=== PATIENT | male | born 1935 | race Caucasian/White ===

== ENCOUNTER 2018-04-05 13:29 | Inpatient (IN) | payer MEDICARE, SELFPAY ==
[2018-04-05] VITALS (7 sets, daily range): BP systolic 114–165; BP diastolic 64–75; PULSE 54–77; RESP 16–18; TEMP 36.6–36.9; O2SAT 96–99; BMI 18.3; BMI 16.0; BMI 16.1
--- NOTE | 2018-04-05 14:13 | CT_ITS ---
STUDY: CT BRAIN WITHOUT CONTRAST REASON FOR EXAM: Male, 82 years old. Severe headache for one week with dizziness. RADIATION DOSAGE (If Supplied By Facility): CTDIvol = ( 44.99 ) mGy, DLP = ( 745.49 ) mGycm TECHNIQUE: Transaxial CT imaging of the brain was performed without administration of intravenous contrast material. Coronal and sagittal 2-D MPR Individualized dose optimization techniques were used for this CT. COMPARISON: None. FINDINGS: Evaluated portions of the paranasal sinuses are clear. Mastoid air cells and middle ear cavities clear. Symmetric and grossly normal features of the vestibular and acoustic apparatus of the temporal bones. Extra cranial soft tissues including the orbital contents exhibit no acute process. Craniofacial osseous structures within the field of view appear normal. There is mild symmetric expansion of lateral ventricles and extra-axial spaces consistent with mild age-related cerebral atrophy. There are no significant chronic changes of the white matter. There is no evidence of acute or old infarct. There is no acute intracranial bleed, mass or mass effect. Normal features of the pituitary, brainstem and cerebellum. CT/Brain/Head without Contrast IMPRESSION: No acute intracranial process. Normal sinuses and normal appearance of the vestibular and acoustic apparatus of the temporal bones. Electronically Signed: Carlos Forde MD at 15:03 EST Tel , Service support ,
--- NOTE | 2018-04-05 14:14 | EKG12_ITS ---
Test Reason : Blood Pressure : / mmHG Vent. Rate : 052 BPM Atrial Rate : 052 BPM P-R Int : 152 ms QRS Dur : 082 ms QT Int : 416 ms P-R-T Axes : 072 012 066 degrees QTc Int : 386 ms Sinus bradycardia Confirmed by EDER VOGEL, ROJAS ([id number]), field map editor UGO NIETO ([id number] on 04/08/2018 1:32:18 PM Referred By: ANGELICA Confirmed By:ROJAS GAINES MD
[2018-04-05] MEDS: Morphine 2 MG/ML Syringe IV (14:33)
[2018-04-05] MEDS: Ondansetron 4 MG/2 ML Vial IV (14:33)
[2018-04-05 14:51] LABS: Erythrocyte Sedimentation Rate 11 mm/hr (0-20)
[2018-04-05 14:53] LABS: Absolute Lymphocyte Count 0.97 X10^3/ul (0.83-4.51); Absolute Neutrophil Count 4.3 X10^3/uL (2.0-7.7); Basophil# 0.01 X10^3/uL; Basophil% 0.2 % (0-1); Eosinophil# 0.02 X10^3/uL; Eosinophils% 0.3 % (0-5); Hematocrit 43.2 % (40-54); Hemoglobin 13.7 g/dl (13.0-16.5); Lymphocyte # 0.97 X10^3/ul (4.0); Lymphocyte % 16.9 % (19-41); Mean Corp Hgb Conc 31.7 g/gl (32-36); Mean Corpuscular Hgb 30.7 pg (27.0-32.0); Mean Corpuscular Volume 96.9 fL (80-94); Mean Platelet Vol. 10.6 fl (6.2-12.0); Monocyte# 0.49 X10^3/uL; Monocyte% 8.5 % (0-10); Neutrophil # 4.26 X10^3/uL (2.7-7.7); Neutrophil % 74.1 % (47-70); Platelet Count 201 K/mm3 (150-450); RBC Distribution Width SD 50.1 fl (35.1-43.9); Red Blood Count 4.46 M/mm3 (4.6-6.2); White Blood Count 5.8 K/mm3 (4.4-11.0)
[2018-04-05 14:55] LABS: POSITIVE COUNT NO; POSITIVE DIFFERENTIAL NO; POSITIVE MORPHOLOGY NO
[2018-04-05 14:59] LABS: Anion Gap 9 (5-15); BUN 12 mg/dL (7-18); Calcium,Total 9.3 mg/dL (8.5-10.1); Chloride 102 mmol/L (98-107); Creatinine, Serum 0.92 mg/dL (0.70-1.30); EST Glomerular Filtration Rate 83 mL/min (>60); Est Glom Filt Rate - Afr Amer 101 mL/min (>60); Estimated Creatinine Clearance 43.69 ml/min; Glucose 104 mg/dL (74-106); Potassium 3.9 mmol/L (3.5-5.1); Sodium Level 141 mmol/L (136-145)
[2018-04-05 15:01] LABS: Prothrombin Time (Protime)PT. 12.9 SECONDS (11.7-14.9)
--- NOTE | 2018-04-05 15:28 | ED.VISSUMM ---
- ER Visit Summary Date of Service: 04/05/18 Chief Complaint: [headache] History of Present Illness: The patient is a 82 M [that presents with 5-6 days of left-sided headache with intermittent left blurry vision. He denies any fall or head trauma. He denies any weakness or paresthesias. No speech difficulty or other neurological complaints. He does not get headaches regularly. He overall appears well and nontoxic. No fever, neck pain, or rash. He has no other complaints.] Physical Examination: [General: The patient appears well and in no apparent distress. Patient is resting comfortably on cart. Skin: Warm, dry, no pallor noted. No rash. Head: Normocephalic, atraumatic Neck: Supple, nontender. Eye: PERRLA, EOMI, normal conjunctiva ENT: Moist mucus membranes, pharynx within normal limits. Mild temporal artery tenderness, no jaw claudication Cardiovascular: Regular Rate and Rhythm, no gallops or rubs Respiratory: Patient is in no distress, no accessory muscle use, lungs are clear to auscultation, no wheezing, rales or rhonchi Musculoskeletal: normal ROM, no deformity, no tenderness, no swelling. 2+ radial and DP pulses symmetric. GI: No tenderness to palpation, no masses appreciated. No rebound, guarding, or rigidity noted. Neurological: A&O, normal strength and sensation. GCS 15. NIH = 0. Psychiatric: Cooperative] Test Results: [] Emergency Department Course and Treatment: [CT imaging of the head shows no acute process. He was given IV fluids, morphine, and Zofran without significant relief of symptoms. He was given a dose of IV Toradol and placed on nasal cannula oxygen. His neurological exam is otherwise within normal limits. I feel patient requires admission for further neurological evaluation and treatment of his headache. He describes gradual onset of the headache and visual change symptoms that started prior to the headache at one point. I do not feel his presentation is consistent with subarachnoid hemorrhage. Patient discussed with hospitalist, Dr. Arroyo, who is agreeable with admission. Patient admitted in stable condition. ] Treatment Plan: [see above] Disposition: [admission] Impression: [Acute Cephalgia, Visual Changes] This note was generated with [employer] software. It may contain incorrect words, spelling, and punctuation that were not noted in review of the chart prior to signing ED Disposition - Plan for ED Patient: Chief Complaint: Headache Referrals: Care Physician,No Primary [Primary Care Provider] -
--- NOTE | 2018-04-05 15:31 | ED.DCSUM_ITS ---
- ER Visit Summary Date of Service: 04/05/18 Chief Complaint: [headache] History of Present Illness: The patient is a 82 M [that presents with 5-6 days of left-sided headache with intermittent left blurry vision. He denies any fall or head trauma. He denies any weakness or paresthesias. No speech difficulty or other neurological complaints. He does not get headaches regularly. He overall appears well and nontoxic. No fever, neck pain, or rash. He has no other complaints.] Physical Examination: [General: The patient appears well and in no apparent distress. Patient is resting comfortably on cart. Skin: Warm, dry, no pallor noted. No rash. Head: Normocephalic, atraumatic Neck: Supple, nontender. Eye: PERRLA, EOMI, normal conjunctiva ENT: Moist mucus membranes, pharynx within normal limits. Mild temporal artery tenderness, no jaw claudication Cardiovascular: Regular Rate and Rhythm, no gallops or rubs Respiratory: Patient is in no distress, no accessory muscle use, lungs are clear to auscultation, no wheezing, rales or rhonchi Musculoskeletal: normal ROM, no deformity, no tenderness, no swelling. 2+ radial and DP pulses symmetric. GI: No tenderness to palpation, no masses appreciated. No rebound, guarding, or rigidity noted. Neurological: A&O, normal strength and sensation. GCS 15. NIH = 0. Psychiatric: Cooperative] Test Results: [] Emergency Department Course and Treatment: [CT imaging of the head shows no acute process. He was given IV fluids, morphine, and Zofran without significant relief of symptoms. He was given a dose of IV Toradol and placed on nasal cannula oxygen. His neurological exam is otherwise within normal limits. I feel patient requires admission for further neurological evaluation and treatment of his headache. He describes gradual onset of the headache and visual change symptoms that started prior to the headache at one point. I do not feel his presentation is consistent with subarachnoid hemorrhage. Patient discussed with hospitalist, Dr. Arroyo, who is agreeable with admission. Patient admitted in stable condition. ] Treatment Plan: [see above] Disposition: [admission] Impression: [Acute Cephalgia, Visual Changes] This note was generated with [employer] dictation software. It may contain incorrect words, spelling, and punctuation that were not noted in review of the chart prio r to signing ED Disposition - Plan for ED Patient: Chief Complaint: Headache Referrals: Care Physician,No Primary [Primary Care Provider] -
--- NOTE | 2018-04-05 15:35 | HP.PCM_ITS ---
Problem List (1) Migraine Status: Suspected Qualifiers: Migraine type: unspecified (2) CVA (cerebral vascular accident) Status: Acute Qualifiers: CVA mechanism: unspecified Qualified Code(s): I63.9 - Cerebral infarction, unspecified (3) Anemia Status: Chronic Qualifiers: Anemia type: unspecified type Qualified Code(s): D64.9 - Anemia, unspecified (4) BPH (benign prostatic hyperplasia) Status: Chronic Qualifiers: Lower urinary tract symptom presence: unspecified whether lower urinary tract symptoms present Qualified Code(s): N40.0 - Benign prostatic hyperplasia without lower urinary tract symptoms (5) GERD (gastroesophageal reflux disease) Status: Chronic Qualifiers: Esophagitis presence: esophagitis presence not specified Qualified Code(s): K21.9 - Gastro-esophageal reflux disease without esophagitis (6) Malnutrition Status: Chronic Qualifiers: Malnutrition type: protein-calorie malnutrition Protein-calorie malnutrition severity: moderate Qualified Code(s): E44.0 - Moderate protein- calorie malnutrition History of Present Illness Date of Admission: 04/05/18 Chief Complaint: L sided headache, vision changes The patient is a 82 y/o M w/ PMHx: GERD, BPH, ? Anemia who presents to the [facility] ED on 04/05/18 with history of intermittent, dull aching with intermittent sharp stabbing sensation to the left head with light and sound sensitivity in addition to new onset left eye blurry vision which has improved transiently but then again worsens not correlated to headache he notes but unsure with no migraine history. He rates the discomfort at its height, currently, 10/10. In the ED work-up included T 97.8, heart rate 77, BP 148/75, respiratory rate 16, 99% on room air, CBC with W BC 5.8, hemoglobin 13.7, platelet 201 with very minimal shift, ESR 11, normal coags, unremarkable BMP, CT head with no acute finding with normal sinus is a normal appearance of vestibular and acoustic apparatus of the temporal bones. In the ED patient leak hunter normal saline, Zofran, morphine, Toradol still noting ongoing discomfort. Past Medical History Past Medical History (Chronic Problems): Chronic Problems Anemia (Chronic) BPH (benign prostatic hyperplasia) (Chronic) GERD (gastroesophageal reflux disease) (Chronic) Malnutrition (Chronic) Allergies No Known Allergies Allergy (Verified 04/05/18 13:33) Home Medications: Ambulatory Orders Medication Instructions Recorded Multivit-Min/FA/Lycopen/Lutein 1 tab PO DAILY 04/05/18 [Centrum Silver Men Tablet] Surgical History: - - Hydrocele repair, prostate surgery. Psychiatric History: No pertinent psych hx Lives: Alone Smoking Status: Never smoker Tobacco Use: Non-smoker Alcohol: None Drugs: None - *Family History Maternal History Items: - - Patient denies any marked maternal or paternal family history include diabetes, heart disease, hypertension but states he is not sure. Paternal History Items: - - Patient denies any marked maternal or paternal family history include diabetes, heart disease, hypertension but states he is not sure. Review of Systems Constitutional: Reports: Malaise, Weakness, Fatigue. Denies: Chills, Fever, Weight Change HEENT: Reports: Head Aches, - - Photophobia and phonophobia.. Denies: Sinus Congestion, Sinus Drainage Cardiovascular: Denies: Chest Pain, Palpitations Respiratory: Denies: Cough, Shortness of breath at rest, Sputum production Gastrointestinal: Denies: Abdominal Pain, Nausea, Vomiting Genitourinary: Denies: Dysuria Musculoskeletal: Reports: Back Pain. Denies: Joint Pain, Joint Tenderness Skin: Denies: Rash, Wounds Neurological: Reports: Blurred vision, Headaches. Denies: Focal weakness, Numbness, Tingling Psychiatric: Denies: Anxiety, Depression, Homicidal Ideations, Suicidal Ideations Hematologic/ Lymphatic: Reports: Anemia. Denies: Easy Bruising, Easy Bleeding VTE Information - Inpt Only VTE Present on Admission: No VTE Mechan Device Prophylaxis: SCD's VTE Pharm Prophylaxis ordered?: Yes Patient Problems: Active and Suspected Problems Migraine (Suspected) CVA (cerebral vascular accident) (Acute) Subjective: Seated upright in the ED bed, notes ongoing headache and as well as some mild vision changes with photophobia and phonophobia present. Objective: Physical Examination: General: awake, alert, oriented x 3 and cooperative, seated upright in the ED bed, lights off upon entering, notes ongoing headache. Skin: normal color, turgor, no icterus, cyanosis. HEENT: AT/NC, EOMI, PERRLA, mildly dry MM, no carotid bruits or JVD noted. Lungs: CTA bilaterally, moderate effort, mild decrease BL bases, no rales, ronchi or wheezing. Heart: Regular rate and rhythm; no gallop, rub audible. Abdomen: soft, cachectic appearing, NTTP, ND, normal BS, no HSM. Extremities: no cyanosis, clubbing, or edema. Neurological: patient awake, alert, oriented x 3; cognitive function intact; pupils equally reactive to light and accomodation; peripheral vision intact during examination but notes vision is still blurry; cranial nerves II-XII grossly normal, moving all 4 extremities, no focal deficits, strength preserved. Psychiatric: affect appears normal, no acute evidence of depressive or anxiety feelings. - Physical Exam Vital Signs Temp Pulse Resp BP Pulse Ox 97.8 F 77 16 148/75 H 99 04/05/18 13:30 04/05/18 13:30 04/05/18 13:30 04/05/18 13:30 04/05/18 13:30 Oxygen Delivery Method Room Air Weight: 110 lb Body Mass Index (BMI) 18.3 Laboratory Tests Past 24 Hrs 04/05/18 04/05/18 04/05/18 14:30 14:30 14:30 WBC 5.8 RBC 4.46 L Hgb 13.7 Hct 43.2 MCV 96.9 H MCH 30.7 MCHC 31.7 L RDW 14.0 RDW Differential 50.1 H Plt Count 201 MPV 10.6 Immature Gran % (Auto) 0.000 Neut % (Auto) 74.1 H Lymph % (Auto) 16.9 L Coleman % (Auto) 8.5 Eos % (Auto) 0.3 Baso % (Auto) 0.2 Absolute Neuts (auto) 4.3 Absolute Lymphs (auto) 0.97 Total Counted Not Reportable ESR 11 PT 12.9 INR 1.0 Sodium 141 Potassium 3.9 Chloride 102 Carbon Dioxide 30.0 Anion Gap 9 BUN 12 Creatinine 0.92 Estim Creat Clear Calc 43.69 Est GFR (MDRD) Af Amer 101 Est GFR (MDRD) Non-Af 83 BUN/Creatinine Ratio 13.0 Glucose 104 Calcium 9.3 Assessment/Plan All Active Problems CVA (cerebral vascular accident) (Acute) The patient is a 82 y/o M w/ PMHx: GERD, BPH, ? Anemia who presents to the [facility] ED on 04/05/18 with history of intermittent, dull aching with intermittent sharp stabbing sensation to the left head with light and sound sensitivity in addition to new onset left eye blurry vision which has improved transiently but then again worsens not correlated to headache he notes but unsure with no migraine history. (1) Atypical Headache, L sided Vision Changes concerning for possible New Onset Migraine versus TIA/CVA: ED work-up included T 97.8, heart rate 77, BP 148/75, respiratory rate 16, 99% on room air, CBC with W BC 5.8, hemoglobin 13.7, platelet 201 with very minimal shift, ESR 11, normal coags, unremarkable BMP, CT head with no acute finding with normal sinus is a normal appearance of vestibular and acoustic apparatus of the temporal bones. In the ED patient leak hunter normal saline, Zofran, morphine, Toradol still noting ongoing discomfort. Will admit to PCU, will obtain MRI Brain, MRA Head and Neck, ECHO, PT/OT/Speech/Nutrition evaluation per protocol. Will consult Neurology for evaluation. Will allow permissive HTN as noted possible pain, maintain on asa, AM FLP w/ addition statin, fall precautions. If MRI negative then likely migraine although no prior history w/ advanced age, would then initiate acute migraine regimen with IV VPA 500 mg Q6 hours, IV Decadron 4 mg Q6 hours, IV Toradol 15 mg Q8 hours and consideration Neurontin low dose with meals. (2) Elevated blood pressure without hypertensive diagnosis:Possibly related to pain with acute presentation however we will continue to closely monitor with continued evaluation with #1 as noted. (3) History of Anemia, Unclear type: Noted on his medical history sheet, suspect secondary to likely malnutrition. (4) Moderate protein calorie malnutrition: Evidence for habitus, muscle and fat loss, nutrition consulted. (5) BPH: Notes frequent urination small amounts only, add flomax. (6) GERD: PPI. (7) DVT Prophylaxis: SCDs, lovenox. (8) CODE status: Discussed CODE status at length including difference between FULL code, DNR-CCA and DNR-CC status. Following discussions about the differences in these status, requested continuation of current living will/HCPOA status noted to be DNR-CCA, no intubation status. Son present for discussion. Advanced Care Planning Face to Face Time: 16 minutes. Code Visit OBSV E&M: 35910 Initial observation care L3 Procedures: 32739 Advncd Care Plan 30 Min
[2018-04-05] MEDS: Ketorolac 15 MG/ML Vial IV (15:47)
--- NOTE | 2018-04-05 17:02 | MRI_ITS ---
STUDY: MRA NECK WITHOUT CONTRAST REASON FOR EXAM: Male, 82 years old. CVA TECHNIQUE: Source images were obtained, MIPs were performed. The study was performed unenhanced. COMPARISON: None. FINDINGS: RIGHT CAROTID ARTERIES: Normal right common carotid artery (CCA). Normal right common carotid bulb. Normal origin of the right internal carotid (ICA) artery without a hemodynamically significant stenosis. Normal visualized cervical portion of the right internal carotid artery. Normal origin of the right external carotid artery (ECA). LEFT CAROTID ARTERIES: Normal left common carotid artery (CCA). Normal left common carotid bulb. Normal origin of the left internal carotid (ICA) artery without a hemodynamically significant stenosis. Normal visualized cervical portion of the left internal carotid artery. Normal origin of the left external carotid artery (ECA). VERTEBRAL ARTERIES: Normal antegrade flow within the bilateral vertebral artery without a hemodynamically significant stenosis. MRI/MRA Neck without Contrast IMPRESSION: Normal bilateral cervical carotid and vertebral arteries. Electronically Signed: Jann Vallecillo MD at 19:13 EST , Service support ,
--- NOTE | 2018-04-05 17:02 | MRI_ITS ---
STUDY: MRI BRAIN WITHOUT CONTRAST REASON FOR EXAM: Male, 82 years old. CVA TECHNIQUE: Standardized multiplanar fat and water weighted pulse sequences were obtained. COMPARISON: CT of the brain on April 05, 2018 FINDINGS: Normal size of the ventricles and extra-axial spaces for the patient's age. Normal white matter tracts of the supratentorial brain. Normal bilateral basal ganglia. Normal thalami. There is no extra-axial fluid accumulation. Normal flow voids within the major intracranial circulation suggesting patency by spin echo criteria. Partial empty sella deformity of uncertain significance. Normal infundibular stalk, optic chiasm and hypothalamus. Normal tectal plate and pineal gland. Normal midbrain, errol and medulla. Normal cerebellum. Normal basal cisterns. Normal bilateral temporal bones. Normal bilateral internal auditory canals. Postsurgical changes of the orbits.. Normal visualized paranasal sinuses. Normal calvarium and skull base. Normal visualized soft tissue structures. Normal visualized upper cervical spine. MRI/Brain without Contrast IMPRESSION: Mild partial empty sella deformity of uncertain clinical significance. Otherwise normal MRI of the brain for stated age Incidental finding of focal low signal changes within the floor of the sella turcica on T1 of indeterminate etiology or clinical significance. Limited repeat study with contrast would be helpful for further evaluation especially if patient has clinical history of neoplasm. Electronically Signed: Jann Vallecillo MD at 19:48 EST , Service support ,
--- NOTE | 2018-04-05 17:02 | MRI_ITS ---
STUDY: MRA OF THE HEAD WITHOUT CONTRAST REASON FOR EXAM: Male, 82 years old. CVA TECHNIQUE: 3-D [id number] (TOF) imaging was performed with MIPs. The study was performed unenhanced. COMPARISON: MRI of the brain on April 05, 2018 FINDINGS: Normal bilateral petrous carotid arteries. Normal right cavernous carotid artery with a normal supraclinoid bifurcation. Normal left cavernous carotid artery with a normal supraclinoid bifurcation. Diffusely narrowed right A1 segments of the anterior cerebral artery. Normal left A1 segments of the anterior cerebral artery. Normal intact anterior communicating artery (ACOM). Normal bilateral A2 segments of the anterior cerebral arteries. Normal right M1 and M2 segments of the middle cerebral arteries, with a normal M1 bifurcation. Normal left M1 and M2 segments of the middle cerebral arteries, with a normal M1 bifurcation. Posterior communicating arteries are not visualized consistent with normal variant Normal bilateral vertebral arteries. Normal basilar artery with a normal basilar bifurcation. The visualized bilateral superior cerebellar (SCA) arteries are normal. Normal bilateral P1, P2 and visualized P3 segments of the posterior cerebral arteries. There is no demonstrated aneurysm of the [place]. There is no major vessel occlusion or hemodynamically significant stenosis. There is no demonstrated abnormality of the visualized brain. MRI/MRA Head ONLY without Contrast IMPRESSION: Diffusely narrowed A1 segment of the right anterior cerebral artery. This may be normal developmental variant. No other significant atherosclerotic disease Electronically Signed: Jann Vallecillo MD at 19:12 EST , Service support ,
[2018-04-05 17:43] LABS: Magnesium 2.2 mg/dL (1.6-2.6); Phosphorus 3.4 mg/dL (2.5-4.9); Thyroid Stim Hormone (TSH) 6.35 uIU/mL (0.358-3.74)
[2018-04-05] MEDS: 0.9% Normal Saline 1,000 ML 100 ML IV (18:34)
[2018-04-05] MEDS: Famotidine 20 MG Tablet PO (21:34)
[2018-04-05] MEDS: Atorvastatin Calcium 20 MG Tablet PO (21:34)
[2018-04-05] MEDS: HYDROcodone Bitartrate/Apap 5/325 Tablet PO (23:04)
[2018-04-06] VITALS (12 sets, daily range): BP systolic 119–149; BP diastolic 58–65; PULSE 46–62; RESP 16–18; TEMP 36.6–36.9; O2SAT 97–98; BMI 16.0
[2018-04-06] MEDS: Acetaminophen 325 MG Tablet 650 MG PO ×3 (03:31→20:21)
[2018-04-06] MEDS: 0.9% Normal Saline 1,000 ML 100 ML IV ×2 (04:32→14:54)
[2018-04-06 06:42] LABS: Cholesterol 210 mg/dL (200); High Density Lipoprotein 56 mg/dL; Triglycerides 74 mg/dL; Very Low Density Lipoprotein 15 mg/dL (5-40)
[2018-04-06] MEDS: Multivitamins,Ther W-Minerals Tablet 1 TABLET PO (09:39)
[2018-04-06] MEDS: Aspirin 81 MG TAB.CHEW PO (09:40)
[2018-04-06] MEDS: Enoxaparin 30 MG/0.3 ML Syringe SC (09:40)
[2018-04-06] MEDS: Famotidine 20 MG Tablet PO ×2 (09:40→22:25)
--- NOTE | 2018-04-06 13:12 | CON.PCM_ITS ---
Reason for Consult Date of Consultation: 04/06/18 History of Present Illness: The patient is a 82 year old M presented with symptoms as below, reports associated with a sense of temperature elevation at home, but hasnt measured temp at home. tried sinus med at home to no avail. reports symptoms started one week ago. reports currently 6/10, upto 20/10. denies trigger. describes a v1-v2 dist. no exac or remitting factors Per admit note: The patient is a 82 y/o M w/ PMHx: GERD, BPH, ? Anemia who presents to the [facility] ED on 04/05/18 with history of intermittent, dull aching with intermittent sharp stabbing sensation to the left head with light and sound sensitivity in addition to new onset left eye blurry vision which has improved transiently but then again worsens not correlated to headache he notes but unsure with no migraine history. He rates the discomfort at its height, currently, 10/10. In the ED work-up included T 97.8, heart rate 77, BP 148/75, respiratory rate 16, 99% on room air, CBC with W BC 5.8, hemoglobin 13.7, platelet 201 with very minimal shift, ESR 11, normal coags, unremarkable BMP, CT head with no acute finding with normal sinus is a normal appearance of vestibular and acoustic apparatus of the temporal bones. In the ED patient china painter normal saline, Zofran, morphine, Toradol still noting ongoing discomfort. Past Medical History Past Medical History (Chronic Problems): Chronic Problems Anemia (Chronic) BPH (benign prostatic hyperplasia) (Chronic) GERD (gastroesophageal reflux disease) (Chronic) Malnutrition (Chronic) Allergies No Known Allergies Allergy (Verified 04/05/18 13:33) Home Medications: Ambulatory Orders Medication Instructions Recorded Multivit-Min/FA/Lycopen/Lutein 1 tab PO DAILY 04/05/18 [Centrum Silver Men Tablet] Surgical History: - - Hydrocele repair, prostate surgery. Psychiatric History: No pertinent psych hx Lives: Alone Smoking Status: Never smoker Tobacco Use: Non-smoker Alcohol: None Drugs: None - *Family History Maternal History Items: - - Patient denies any marked maternal or paternal family history include diabetes, heart disease, hypertension but states he is not sure. Paternal History Items: - - Patient denies any marked maternal or paternal family history include diabetes, heart disease, hypertension but states he is not sure. Review of Systems Constitutional: Denies: Chills, Fever, Weight Change HEENT: Denies: Head Aches, Sinus Congestion, Sinus Drainage Cardiovascular: Denies: Chest Pain, Palpitations Respiratory: Denies: Cough, Shortness of breath at rest, Sputum production Gastrointestinal: Denies: Abdominal Pain, Nausea, Vomiting Genitourinary: Denies: Dysuria Musculoskeletal: Denies: Joint Pain, Joint Tenderness Skin: Denies: Rash, Wounds Neurological: Denies: Numbness, Tingling, Focal weakness Psychiatric: Denies: Anxiety, Depression, Homicidal Ideations, Suicidal Ideations Hematologic/ Lymphatic: Denies: Easy Bruising, Easy Bleeding Patient Problems: Active and Suspected Problems Migraine (Suspected) CVA (cerebral vascular accident) (Acute) - Physical Exam General: Alert, Oriented x3, Cooperative HEENT: Atraumatic, PERRLA, EOMI, Normocephalic Neck: Supple, No JVD, Negative Carotid Bruits Lungs: Clear to auscultation, Normal air movement Cardiovascular: Regular rate, No murmurs Abdomen: Bowel Sounds Present, Soft, Non Tender Extremities: No edema, Capillary Refill Less than 3 Seconds Skin: No rashes, No breakdown Musculoskeletal: No Tenderness to Palpation of Joints or Extremities Neurological: Cranial nerves II-XII grossly intact Psych/Mental Status: Normal Affect, Appropriate Vital Signs Temp Pulse Resp BP Pulse Ox 36.8 C 53 L 16 132/64 H 97 04/06/18 09:15 04/06/18 09:15 04/06/18 09:15 04/06/18 09:15 04/06/18 09:15 Oxygen Delivery Method Room Air Weight: 43.8 kg Body Mass Index (BMI) 16.0 Intake and Output for Last 24 Hours 04/04/18 04/05/18 04/06/18 23:59 23:59 23:59 Intake Total 899 / 899 1024 / 1024 Balance 899 / 899 1024 / 1024 Laboratory Tests Past 24 Hrs 04/05/18 04/05/18 04/05/18 14:30 14:30 14:30 WBC 5.8 RBC 4.46 L Hgb 13.7 Hct 43.2 MCV 96.9 H MCH 30.7 MCHC 31.7 L RDW 14.0 RDW Differential 50.1 H Plt Count 201 MPV 10.6 Immature Gran % (Auto) 0.000 Neut % (Auto) 74.1 H Lymph % (Auto) 16.9 L [place] % (Auto) 8.5 Eos % (Auto) 0.3 Baso % (Auto) 0.2 Absolute Neuts (auto) 4.3 Absolute Lymphs (auto) 0.97 Total Counted Not Reportable ESR 11 PT 12.9 INR 1.0 Sodium 141 Potassium 3.9 Chloride 102 Carbon Dioxide 30.0 Anion Gap 9 BUN 12 Creatinine 0.92 Estim Creat Clear Calc 43.69 Est GFR (MDRD) Af Amer 101 Est GFR (MDRD) Non-Af 83 BUN/Creatinine Ratio 13.0 Glucose 104 Calcium 9.3 Phosphorus Magnesium Triglycerides Cholesterol LDL Cholesterol VLDL Cholesterol HDL Cholesterol TSH 04/05/18 04/06/18 14:30 05:26 WBC RBC Hgb Hct MCV MCH MCHC RDW RDW Differential Plt Count MPV Immature Gran % (Auto) Neut % (Auto) Lymph % (Auto) [place] % (Auto) Eos % (Auto) Baso % (Auto) Absolute Neuts (auto) Absolute Lymphs (auto) Total Counted ESR PT INR Sodium Potassium Chloride Carbon Dioxide Anion Gap BUN Creatinine Estim Creat Clear Calc Est GFR (MDRD) Af Amer Est GFR (MDRD) Non-Af BUN/Creatinine Ratio Glucose Calcium Phosphorus 3.4 Magnesium 2.2 Triglycerides 74 Cholesterol 210 H LDL Cholesterol 139 H VLDL Cholesterol 15 HDL Cholesterol 56 TSH 6.35 H MRI reviewed, no acute Assessment/Plan All Active Problems CVA (cerebral vascular accident) (Acute) [place] tegretol, pain control
[2018-04-06] MEDS: carBAMazepine 200 MG Tablet PO (14:52)
--- NOTE | 2018-04-06 18:00 | PCM.PROGNOTE ---
Patient Problems: Active and Suspected Problems Migraine (Suspected) CVA (cerebral vascular accident) (Acute) Subjective: Patient is an 82-year-old male with a past medical history of GERD and BPH who presented to the emergency room department at [facility] on 04/05/2018 complaining of intermittent dull and sharp stabbing sensation in his left head with light and sound sensitivity in addition to new onset blurry vision in the left eye. He did not give a history of previous migraines. Vital signs in the emergency room were temp 97.8, heart rate 77, blood pressure 148/75, respiratory rate 16 and he was 99% saturated on room air. White blood cell count was 5.8 and the hemoglobin and platelets were within normal limits. Sed rate was 11. BMP was unremarkable. A CT scan of the head showed no acute disturbances. He was admitted to the hospital with a dx of atypical YBARRA and neuro w/u was initiated. Dr. Blair was consulted. All events of the past 24 hours of been reviewed. Afebrile since admission with stable vital signs. MRI of the brain showed mild partial empty sella deformity but was otherwise normal for age. MRA of the brain showed diffusely narrowed A1 segment of the right anterior cerebral artery which could be a normal variant. MRA of the neck showed normal bilateral cervical carotid and vertebral arteries. He was started on Tegretol for pain relief by Dr. Blair. Objective: PHYSICAL EXAM: GENERAL: alert, oriented X 3, Cooperative, NAD ORAL: moist mucosa, no mucosal lesions NECK: No JVD, supple, trachea midline LUNGS: CTA, symmetric chest expansion no rales, wheezes or rhonchi HEART: RRR, Normal S1 and S2, no rub, no gallop ABDOMEN: soft, NT, ND, BS present, no guarding with palpation EXTREMITIES: no edema, no cyanosis, no calf tenderness SKIN: No rashes, no breakdown NEUROLOGIC: no focal neurologic deficits PSYCH: appropriate, normal affect, pleasant - Physical Exam Vital Signs Temp Pulse Resp BP Pulse Ox 97.8 F 62 18 149/61 H 97 04/06/18 17:33 04/06/18 17:33 04/06/18 17:33 04/06/18 17:33 04/06/18 17:33 Oxygen Delivery Method Room Air Weight: 96 lb 8.999 oz Body Mass Index (BMI) 16.0 Intake and Output for Last 24 Hours 04/04/18 04/05/18 04/06/18 23:59 23:59 23:59 Intake Total 899 / 899 2423 / 2423 Balance 899 / 899 2423 / 2423 Laboratory Tests Past 24 Hrs 04/06/18 05:26 Triglycerides 74 Cholesterol 210 H LDL Cholesterol 139 H VLDL Cholesterol 15 HDL Cholesterol 56 Medical Necessity - Tobacco Use Smoking Status: Never smoker Tobacco Use: Non-smoker Assessment/Plan All Active Problems CVA (cerebral vascular accident) (Acute) Impressions 1. Atypical YBARRA - no acute neurologic events. Possible Migraine. Started on Tegretol by Dr. Blair 2. Elevated blood pressure with no definitive diagnosis of hypertension-hypertension has improved as his headache has improved. 3. Moderate malnutrition due to suboptimal energy intake 4. BPH 5. GERD 6. elevated TSH re-evaluate in the AM since he has been started on Tegretol Possible DC tomorrow May need follow up with the home designer as an OP for malnutrition Check a T4 in the AM Code Visit Inpatient E&M: 01287 Subs Hosp L2
--- NOTE | 2018-04-06 18:08 | PN_ITS ---
Patient Problems: Active and Suspected Problems Migraine (Suspected) CVA (cerebral vascular accident) (Acute) Subjective: Patient is an 82-year-old male with a past medical history of GERD and BPH who presented to the emergency room department at [facility] on 04/05/2018 complaining of intermittent dull and sharp stabbing sensation in his left head with light and sound sensitivity in addition to new onset blurry vision in the left eye. He did not give a history of previous migraines. Vital signs in the emergency room were temp 97.8, heart rate 77, blood pressure 148/75, respiratory rate 16 and he was 99% saturated on room air. White blood cell count was 5.8 and the hemoglobin and platelets were within normal limits. Sed rate was 11. BMP was unremarkable. A CT scan of the head showed no acute disturbances. He was admitted to the hospital with a dx of atypical YBARRA and neuro w/u was initiated. Dr. Blair was consulted. All events of the past 24 hours of been reviewed. Afebrile since admission with stable vital signs. MRI of the brain showed mild partial empty sella deformity but was otherwise normal for age. MRA of the brain showed diffusely narrowed A1 segment of the right anterior cerebral artery which could be a normal variant. MRA of the neck showed normal bilateral cervical carotid and vertebral arteries. He was started on Tegretol for pain relief by Dr. Blair. Objective: PHYSICAL EXAM: GENERAL: alert, oriented X 3, Cooperative, NAD ORAL: moist mucosa, no mucosal lesions NECK: No JVD, supple, trachea midline LUNGS: CTA, symmetric chest expansion no rales, wheezes or rhonchi HEART: RRR, Normal S1 and S2, no rub, no gallop ABDOMEN: soft, NT, ND, BS present, no guarding with palpation EXTREMITIES: no edema, no cyanosis, no calf tenderness SKIN: No rashes, no breakdown NEUROLOGIC: no focal neurologic deficits PSYCH: appropriate, normal affect, pleasant - Physical Exam Vital Signs Temp Pulse Resp BP Pulse Ox 97.8 F 62 18 149/61 H 97 04/06/18 17:33 04/06/18 17:33 04/06/18 17:33 04/06/18 17:33 04/06/18 17:33 Oxygen Delivery Method Room Air Weight: 96 lb 8.999 oz Body Mass Index (BMI) 16.0 Intake and Output for Last 24 Hours 04/04/18 04/05/18 04/06/18 23:59 23:59 23:59 Intake Total 899 / 899 2423 / 2423 Balance 899 / 899 2423 / 2423 Laboratory Tests Past 24 Hrs 04/06/18 05:26 Triglycerides 74 Cholesterol 210 H LDL Cholesterol 139 H VLDL Cholesterol 15 HDL Cholesterol 56 Medical Necessity - Tobacco Use Smoking Status: Never smoker Tobacco Use: Non-smoker Assessment/Plan All Active Problems CVA (cerebral vascular accident) (Acute) Impressions 1. Atypical YBARRA - no acute neurologic events. Possible Migraine. Started on Tegretol by Dr. Blair 2. Elevated blood pressure with no definitive diagnosis of hypertension- hypertension has improved as his headache has improved. 3. Moderate malnutrition due to suboptimal energy intake 4. BPH 5. GERD 6. elevated TSH re-evaluate in the AM since he has been started on Tegretol Possible DC tomorrow May need follow up with the cutting table operator first as an OP for malnutrition Check a T4 in the AM Code Visit Inpatient E&M: [id number] Subs Hosp L2
[2018-04-06] MEDS: Atorvastatin Calcium 20 MG Tablet PO (22:25)
[2018-04-07] VITALS (11 sets, daily range): BP systolic 124–145; BP diastolic 61–75; PULSE 51–69; RESP 16–18; TEMP 36.6–37.1; O2SAT 96–98; BMI 16.0
[2018-04-07] MEDS: 0.9% Normal Saline 1,000 ML 100 ML IV (00:19)
[2018-04-07] MEDS: Acetaminophen 325 MG Tablet 650 MG PO ×2 (03:51→08:05)
[2018-04-07 07:47] LABS: T4 Free Direct 0.81 ng/dL (0.76-1.46)
--- NOTE | 2018-04-07 08:08 | PCM.PROGNOTE ---
Patient Problems: Active and Suspected Problems Migraine (Suspected) CVA (cerebral vascular accident) (Acute) Subjective: All events of the past 24 hours of been reviewed. Afebrile since admission Vital signs are stable Telemetry shows sinus bradycardia with no significant ectopy Laboratory: TSH was elevated at 6.35 but the free T4 is within normal limits at 0.81. Patient reports to me that the Tegretol has not helped his headache at all. He has had this headache for a few weeks now and it has been unrelenting. He also complains of visual changes in his left eye. He denies any muscle pain and also denies any jaw claudication. He has no history of migraine cephalgia. He is tender in the left temporal area with palpation. Objective: PHYSICAL EXAM: GENERAL: alert, oriented X 3, Cooperative, looks to be in pain today ORAL: moist mucosa, no mucosal lesions NECK: No JVD, supple, trachea midline LUNGS: CTA, symmetric chest expansion no rales, wheezes or rhonchi HEART: RRR, Normal S1 and S2, no rub, no gallop, bradycardic in the 50's currently ABDOMEN: soft, NT, ND, BS present, no guarding with palpation EXTREMITIES: no edema, no cyanosis, no calf tenderness, no rashes, pedal pulses on the R are diminished and so is the popliteal. the popliteal on the left is 3/3. Denies pain with ambulation. He does c/o cramps in the calves at night. SKIN: No rashes, no breakdown NEUROLOGIC: no focal neurologic deficits PSYCH: appropriate, normal affect, pleasant He has pain when I palpate the Left mormon - Physical Exam Vital Signs Temp Pulse Resp BP Pulse Ox 98.3 F 53 L 18 127/75 H 98 04/07/18 04:21 04/07/18 07:06 04/07/18 04:21 04/07/18 04:21 04/07/18 04:21 Oxygen Delivery Method Room Air Weight: 96 lb 8.999 oz Body Mass Index (BMI) 16.0 Intake and Output for Last 24 Hours 04/05/18 04/06/18 04/07/18 23:59 23:59 23:59 Intake Total 899 / 899 3249 / 3249 775 / 775 Output Total 150 / 150 Balance 899 / 899 3249 / 3249 625 / 625 Laboratory Tests Past 24 Hrs 04/07/18 04/07/18 06:23 06:23 ESR Pending Free T4 0.81 Medical Necessity - Tobacco Use Smoking Status: Never smoker Tobacco Use: Non-smoker Assessment/Plan All Active Problems CVA (cerebral vascular accident) (Acute) Impressions 1. Atypical YBARRA - no acute neurologic events. Possible Migraine. Started on Tegretol by Dr. Blair. Need to rule out temporal arteritis 2. Elevated blood pressure with no definitive diagnosis of hypertension-hypertension has improved as his headache has improved. 3. Moderate malnutrition due to suboptimal energy intake 4. BPH 5. GERD 6. elevated TSH ESR now Decadron 10 mg now If the ESR is significantly elevated will need a temporal artery biopsy and follow up with an opthamologist If the ESR is normal then will treat for 24 H with steroids, Reglan, Toradol and continue the Tegretol or change to Depakote IV? Code Visit Inpatient E&M: [id number] Subs Hosp L2
[2018-04-07 08:09] LABS: Erythrocyte Sedimentation Rate 19 mm/hr (0-20)
--- NOTE | 2018-04-07 08:14 | PN_ITS ---
Patient Problems: Active and Suspected Problems Migraine (Suspected) CVA (cerebral vascular accident) (Acute) Subjective: All events of the past 24 hours of been reviewed. Afebrile since admission Vital signs are stable Telemetry shows sinus bradycardia with no significant ectopy Laboratory: TSH was elevated at 6.35 but the free T4 is within normal limits at 0.81. Patient reports to me that the Tegretol has not helped his headache at all. He has had this headache for a few weeks now and it has been unrelenting. He also complains of visual changes in his left eye. He denies any muscle pain and also denies any jaw claudication. He has no history of migraine cephalgia. He is tender in the left temporal area with palpation. Objective: PHYSICAL EXAM: GENERAL: alert, oriented X 3, Cooperative, looks to be in pain today ORAL: moist mucosa, no mucosal lesions NECK: No JVD, supple, trachea midline LUNGS: CTA, symmetric chest expansion no rales, wheezes or rhonchi HEART: RRR, Normal S1 and S2, no rub, no gallop, bradycardic in the 50's currently ABDOMEN: soft, NT, ND, BS present, no guarding with palpation EXTREMITIES: no edema, no cyanosis, no calf tenderness, no rashes, pedal pulses on the R are diminished and so is the popliteal. the popliteal on the left is 3/3. Denies pain with ambulation. He does c/o cramps in the calves at night. SKIN: No rashes, no breakdown NEUROLOGIC: no focal neurologic deficits PSYCH: appropriate, normal affect, pleasant He has pain when I palpate the Left yarsani - Physical Exam Vital Signs Temp Pulse Resp BP Pulse Ox 98.3 F 53 L 18 127/75 H 98 04/07/18 04:21 04/07/18 07:06 04/07/18 04:21 04/07/18 04:21 04/07/18 04:21 Oxygen Delivery Method Room Air Weight: 96 lb 8.999 oz Body Mass Index (BMI) 16.0 Intake and Output for Last 24 Hours 04/05/18 04/06/18 04/07/18 23:59 23:59 23:59 Intake Total 899 / 899 3249 / 3249 775 / 775 Output Total 150 / 150 Balance 899 / 899 3249 / 3249 625 / 625 Laboratory Tests Past 24 Hrs 04/07/18 04/07/18 06:23 06:23 ESR Pending Free T4 0.81 Medical Necessity - Tobacco Use Smoking Status: Never smoker Tobacco Use: Non-smoker Assessment/Plan All Active Problems CVA (cerebral vascular accident) (Acute) Impressions 1. Atypical YBARRA - no acute neurologic events. Possible Migraine. Started on Tegretol by Dr. Blair. Need to rule out temporal arteritis 2. Elevated blood pressure with no definitive diagnosis of hypertension- hypertension has improved as his headache has improved. 3. Moderate malnutrition due to suboptimal energy intake 4. BPH 5. GERD 6. elevated TSH ESR now Decadron 10 mg now If the ESR is significantly elevated will need a temporal artery biopsy and follow up with an opthamologist If the ESR is normal then will treat for 24 H with steroids, Reglan, Toradol and continue the Tegretol or change to Depakote IV? Code Visit Inpatient E&M: [id number] Subs Hosp L2
[2018-04-07] MEDS: 0.9% NaCl Peripheral Flush Adult/Peds IV ×2 (09:33→22:09)
[2018-04-07] MEDS: Famotidine 20 MG Tablet PO ×2 (09:38→22:04)
[2018-04-07] MEDS: Multivitamins,Ther W-Minerals Tablet 1 TABLET PO (09:38)
[2018-04-07] MEDS: Aspirin 81 MG TAB.CHEW PO (09:39)
[2018-04-07] MEDS: Ketorolac 15 MG/ML Vial IV ×3 (09:42→22:04)
[2018-04-07] MEDS: Metoclopramide 10 MG/2 ML Vial IV (09:43)
--- NOTE | 2018-04-07 13:50 | CASEMGMT ---
SANTANA FLORES ASSESSMENT To room to talk with patient for initial transition planning/care coordination assessment. SANTANA FLORES introduced self and role at [facility]. Pt voices understanding and consents to assessment at this time. Pt resting in bed in no distress at this time. Pt is A/O at this time and answers all questions appropriately. Care providers, pharmacy, and demographics verified/updated at this time. PCP: Pt states he does not have a PCP. Offered list of local PCP's and pt accepted. Preferred Pharmacy: [facility] Insurance: [facility] A&B. No supplemental insurance. Prescription Benefit: None Living Will/HPOA: Has both LW and HCPOA, who is his son, Kyle. LNOK: States has 7 children but states, 6 of them are not around, they're not involved. Living Arrangements: Lives alone in a 2 story home. States he enters through the basement and there are 10-12 steps to enter. States bathroom is upstairs on 2nd floor. States no problems with the stairs. States he is independent with all ADL's and home mgmt tasks. Transportation: Pt states drives self and states no transportation concerns at this time. DME: Denies using any DME and denies needs. HHC/SNF: States has never used HHC or been to a SNF. States, I don't want any of that. Pt wishes to return home and states has no concerns with going home at time of discharge. CM to follow for any further discharge planning/needs. Pt voices no further concerns/needs at this time. Advised pt to ask for CM if any further questions/concerns/needs arise. Voices understanding. Plan: Home Cem PELAYO RN, CM
[2018-04-07] MEDS: Metoclopramide 10 MG/2 ML Vial 5 MG IV ×2 (16:23→22:05)
[2018-04-07] MEDS: carBAMazepine 200 MG Tablet PO (16:24)
[2018-04-07] MEDS: Atorvastatin Calcium 20 MG Tablet PO (22:04)
--- NOTE | 2018-04-07 22:20 | NURSING ---
spoke with Dc, son, on phone. gave him update on patient. states he plans on coming in the morning around 0800 to speak with the doctor in regards to some discharge questions he has.
[2018-04-08] VITALS (7 sets, daily range): BP systolic 127–147; BP diastolic 59–77; PULSE 55–88; RESP 16; TEMP 36.5–36.6; O2SAT 96–98
[2018-04-08] MEDS: Metoclopramide 10 MG/2 ML Vial 5 MG IV ×2 (04:12→09:41)
[2018-04-08] MEDS: Ketorolac 15 MG/ML Vial IV (04:13)
[2018-04-08] MEDS: 0.9% NaCl Peripheral Flush Adult/Peds IV (04:14)
[2018-04-08 05:45] LABS: BUN 26 mg/dL (7-18); Creatinine, Serum 0.86 mg/dL (0.70-1.30); Estimated Creatinine Clearance 41.03 ml/min; Glucose 141 mg/dL (74-106)
[2018-04-08 05:46] LABS: ALB/GLOB Ratio 0.9 RATIO (0.9-2.4); AST(SGOT) 16 U/L (15-37); Alanine Aminotransfer ALT/SGPT 26 U/L (16-61); Albumin, Serum 2.9 g/dL (3.2-5.0); Alkaline Phosphatase 58 U/L (45-117); Anion Gap 8 (5-15); BUN/Creat Ratio 30.3 RATIO (10-20); Calcium,Total 8.5 mg/dL (8.5-10.1); Chloride 105 mmol/L (98-107); EST Glomerular Filtration Rate 91 mL/min (>60); Est Glom Filt Rate - Afr Amer 110 mL/min (>60); Globulin 3.4 g/dL (2.2-4.2); Potassium 4.3 mmol/L (3.5-5.1); Protein, Total 6.3 g/dL (6.4-8.2); Sodium Level 142 mmol/L (136-145)
[2018-04-08] MEDS: Multivitamins,Ther W-Minerals Tablet 1 TABLET PO (08:43)
[2018-04-08] MEDS: carBAMazepine 200 MG Tablet PO (08:43)
[2018-04-08] MEDS: Aspirin 81 MG TAB.CHEW PO (08:44)
[2018-04-08] MEDS: Famotidine 20 MG Tablet PO (09:39)
[2018-04-08] MEDS: Psyllium 1 PACKET PO (09:41)
--- NOTE | 2018-04-08 12:28 | DCINST_ITS ---
- Discharge Diagnoses Current Active Problems: Current Active and Chronic Problems CVA (cerebral vascular accident) (Acute) Anemia (Chronic) BPH (benign prostatic hyperplasia) (Chronic) GERD (gastroesophageal reflux disease) (Chronic) Malnutrition (Chronic) You will use the following diet at home:: No restrictions, Other - there are certain foods that precipitate migraines.....cheese, smoked moods, wine, beer....you can go on line and get a copy of a diet of foods to avoid if you have migraines Your food should be the consistency of: Regular Your liquids should be the consistency of: Regular/Thin Discharge Activity: Return to Normal Activity Call your doctor if you observe: Fever of 101 or Higher, Inability to urinate, Inability to have a bowel movement, Shortness of breath, Dizziness, Fainting spells, Chest pain, - - recurrent unilateral headaches Instructions: Self-Care for Headaches, Preventing Migraine Headaches: Triggers, Preventing Migraine Headaches: Medications and Lifestyle Changes Additional Instructions: 1. If you start to get a YBARRA that is on one side of your head drink a cup of coffee and take 2 Excedrin.......the caffeine can sometimes abort the migraine IF you take it as soon as the Headache starts......laying down in a dark, quiet room also helps. 2. You did not have a stroke. Allergies/Adverse Reactions: Allergies No Known Allergies Allergy (Verified 04/05/18 13:33) Medications to take at Discharge Multivit-Min/FA/Lycopen/Lutein [Centrum Silver Men Tablet] 1 tab PO DAILY 04/05/18 Carbamazepine [Tegretol] 200 mg PO BIDCM #60 tablet 04/08/18 MethylPREDNISolone DosePak [Medrol DosePak] 4 mg PO UD #1 box 04/08/18 The following prescriptions were given: MethylPREDNISolone DosePak [Medrol DosePak] 4 mg PO UD #1 box Carbamazepine [Tegretol] 200 mg PO BIDCM #60 tablet Primary Care Physician: Care Physician,No Primary [Primary Care Provider] - Please follow up with your Primary Care Physician in: has a list of local PCP's - follow up in 1-2 weeks. Test Results: Test results from this visit will be discussed in further detail at your follow- up appointment, if applicable. Please Follow Up With: Jonh Blair MD When: 3-4 weeks Proposed Discharge Date: 04/08/18
--- NOTE | 2018-04-08 12:40 | PCM.DC.SUM ---
Discharge Date and Diagnosis - Problem List Patient Problems: Active and Suspected Problems Elevated TSH (Acute) Migraine (Acute) Date of Admission: 04/05/18 Date of Discharge: 04/08/18 - Primary Discharge Diagnosis Active and Suspected Problems New onset migraine cephalgia (Acute) - Secondary Discharge Diagnosis Chronic Problems Anemia (Chronic)-resolved BPH (benign prostatic hyperplasia) (Chronic) GERD (gastroesophageal reflux disease) (Chronic) Malnutrition (Chronic) Elevated TSH with normal T4. Hospital Course and Treatment Imaging Results: Clinical Impression(s) from Imaging Studies Brain CT 04/05/18 14:13 IMPRESSION: No acute intracranial process. Normal sinuses and normal appearance of the vestibular and acoustic apparatus of the temporal bones. Electronically Signed: Carlos Forde MD at 15:03 EST Tel , Service support , Brain MRI 04/05/18 17:02 IMPRESSION: Mild partial empty sella deformity of uncertain clinical significance. Otherwise normal MRI of the brain for stated age Incidental finding of focal low signal changes within the floor of the sella turcica on T1 of indeterminate etiology or clinical significance. Limited repeat study with contrast would be helpful for further evaluation especially if patient has clinical history of neoplasm. Electronically Signed: Jann Vallecillo MD at 19:48 EST , Service support , Head MRA 04/05/18 17:02 IMPRESSION: Diffusely narrowed A1 segment of the right anterior cerebral artery. This may be normal developmental variant. No other significant atherosclerotic disease Electronically Signed: Jann Vallecillo MD at 19:12 EST , Service support , Neck MRA 04/05/18 17:02 IMPRESSION: Normal bilateral cervical carotid and vertebral arteries. Electronically Signed: Jann Vallecillo MD at 19:13 EST , Service support , Laboratory Results - last 24 hr 04/08/18 04:44 Sodium 142 Potassium 4.3 Chloride 105 Carbon Dioxide 29.0 Anion Gap 8 BUN 26 H Creatinine 0.86 Estim Creat Clear Calc 41.03 Est GFR (MDRD) Af Amer 110 Est GFR (MDRD) Non-Af 91 BUN/Creatinine Ratio 30.3 H Glucose 141 H Calcium 8.5 Total Bilirubin 0.70 AST 16 ALT 26 Alkaline Phosphatase 58 Total Protein 6.3 L Albumin 2.9 L Globulin 3.4 Albumin/Globulin Ratio 0.9 Dr. Jonh Blair-neurology Operations: None Procedures: None Summary of Care Provided: The Patient is an 82-year-old male with a past medical history of GERD and BPH on no prescription medications who presented to the emergency room department at [facility] on 04/05/2018 complaining of intermittent dull and sharp stabbing sensation in his left head with light and sound sensitivity in addition to new onset blurry vision in the left eye. He did not give a history of previous migraines. Vital signs in the emergency room were temp 97.8, heart rate 77, blood pressure 148/75, respiratory rate 16 and he was 99% saturated on room air. White blood cell count was 5.8 and the hemoglobin and platelets were within normal limits. Sed rate was 11 and repeat was 19 2 days later. BMP was unremarkable. A CT scan of the head showed no acute disturbances. He was admitted to the hospital with a dx of atypical YBARRA and neuro w/u was initiated. Dr. Blair was consulted. MRI of the brain showed mild partial empty sella deformity but was otherwise normal. MRA of the brain showed diffusely narrowed A1 segment of the right anterior cerebral artery which may be a developmental variant. MRA of the neck showed bilateral cervical carotid and vertebral arteries to be normal. He was started on Tegretol by Dr. Blair with no relief of the pain. He was then treated with Decadron, Reglan and Toradol every 6 hours for 4 doses. The following day he was much improved and he was discharged home with a prescription for a Medrol Dosepak and Tegretol. He will follow-up with Dr. Blair in the office in 3-4 weeks. He was given a list of local primary care physicians accepting new patients and his son will make an appointment for him to be seen in 1-2 weeks. I did advise him if he starts to get a headache again to drink a cup of coffee and take 2 Excedrin as soon as the pain starts and to lie down in a quiet dark room to see if the headache can be aborted. GENERAL: alert, oriented X 3, Cooperative, looks much better today and the lights are on in the room and the shade open ORAL: moist mucosa, no mucosal lesions NECK: No JVD, supple, trachea midline LUNGS: CTA, symmetric chest expansion no rales, wheezes or rhonchi HEART: RRR, Normal S1 and S2, no rub, no gallop, bradycardic in the 50's currently ABDOMEN: soft, NT, ND, BS present, no guarding with palpation EXTREMITIES: no edema, no cyanosis, no calf tenderness, no rashes, pedal pulses on the R are diminished and so is the popliteal. the popliteal on the left is 3/3. Denies pain with ambulation. He does c/o cramps in the calves at night. SKIN: No rashes, no breakdown NEUROLOGIC: no focal neurologic deficits PSYCH: appropriate, normal affect, pleasant This note was generated with [employer] dictation software. It may contain incorrect words, spelling, and punctuation that were not noted in checking the note before signing. Patient Problems: Active and Suspected Problems Elevated TSH (Acute) Migraine (Acute) - Physical Exam Vital Signs Temp Pulse Resp BP Pulse Ox 97.7 F L 77 16 128/63 H 96 04/08/18 08:53 04/08/18 11:01 04/08/18 08:53 04/08/18 08:53 04/08/18 08:53 Oxygen Delivery Method Room Air Weight: 96 lb 8.999 oz Body Mass Index (BMI) 16.0 Intake and Output for Last 24 Hours 04/06/18 04/07/18 04/08/18 23:59 23:59 23:59 Intake Total 3249 / 3249 1735 / 1735 Output Total 150 / 150 Balance 3249 / 3249 1585 / 1585 Laboratory Tests Past 24 Hrs 04/08/18 04:44 Sodium 142 Potassium 4.3 Chloride 105 Carbon Dioxide 29.0 Anion Gap 8 BUN 26 H Creatinine 0.86 Estim Creat Clear Calc 41.03 Est GFR (MDRD) Af Amer 110 Est GFR (MDRD) Non-Af 91 BUN/Creatinine Ratio 30.3 H Glucose 141 H Calcium 8.5 Total Bilirubin 0.70 AST 16 ALT 26 Alkaline Phosphatase 58 Total Protein 6.3 L Albumin 2.9 L Globulin 3.4 Albumin/Globulin Ratio 0.9 Discharge Activity: Return to Normal Activity Call your doctor if you observe: Fever of 101 or Higher, Inability to urinate, Inability to have a bowel movement, Shortness of breath, Dizziness, Fainting spells, Chest pain, - - recurrent unilateral headaches Home Medications: Medications to take at Discharge Multivit-Min/FA/Lycopen/Lutein [Centrum Silver Men Tablet] 1 tab PO DAILY 04/05/18 Carbamazepine [Tegretol] 200 mg PO BIDCM #60 tablet 04/08/18 MethylPREDNISolone DosePak [Medrol DosePak] 4 mg PO UD #1 box 04/08/18 Following Prescrptions Were Given to Patient: MethylPREDNISolone DosePak [Medrol DosePak] 4 mg PO UD #1 box Carbamazepine [Tegretol] 200 mg PO BIDCM #60 tablet Primary Care Physician: Care Physician,No Primary [Primary Care Provider] - Please follow up with your Primary Care Physician in: has a list of local PCP's - follow up in 1-2 weeks. Please Follow Up With: Jonh Blair MD When: 3-4 weeks Patient Instructions: Self-Care for Headaches, Preventing Migraine Headaches: Triggers, Preventing Migraine Headaches: Medications and Lifestyle Changes Disposition: Home Minutes spent on discharge:: 30 Patient Condition:: Good Medical Necessity - Tobacco Use Smoking Status: Never smoker Tobacco Use: Non-smoker Meaningful Use Info Meaningful Use Diagnoses (Choose all that apply): None applicable Code Visit Inpatient E&M: 34502 Disch Hosp
--- NOTE | 2018-04-08 12:48 | DS.PCM_ITS ---
Discharge Date and Diagnosis - Problem List Patient Problems: Active and Suspected Problems Elevated TSH (Acute) Migraine (Acute) Date of Admission: 04/05/18 Date of Discharge: 04/08/18 - Primary Discharge Diagnosis Active and Suspected Problems New onset migraine cephalgia (Acute) - Secondary Discharge Diagnosis Chronic Problems Anemia (Chronic)-resolved BPH (benign prostatic hyperplasia) (Chronic) GERD (gastroesophageal reflux disease) (Chronic) Malnutrition (Chronic) Elevated TSH with normal T4. Hospital Course and Treatment Imaging Results: Clinical Impression(s) from Imaging Studies Brain CT 04/05/18 14:13 IMPRESSION: No acute intracranial process. Normal sinuses and normal appearance of the vestibular and acoustic apparatus of the temporal bones. Electronically Signed: Carlos Forde MD at 15:03 EST Tel , Service support , Brain MRI 04/05/18 17:02 IMPRESSION: Mild partial empty sella deformity of uncertain clinical significance. Otherwise normal MRI of the brain for stated age Incidental finding of focal low signal changes within the floor of the sella turcica on T1 of indeterminate etiology or clinical significance. Limited repeat study with contrast would be helpful for further evaluation especially if patient has clinical history of neoplasm. Electronically Signed: Jann Vallecillo MD at 19:48 EST , Service support , Head MRA 04/05/18 17:02 IMPRESSION: Diffusely narrowed A1 segment of the right anterior cerebral artery. This may be normal developmental variant. No other significant atherosclerotic disease Electronically Signed: Jann Vallecillo MD at 19:12 EST , Service support , Neck MRA 04/05/18 17:02 IMPRESSION: Normal bilateral cervical carotid and vertebral arteries. Electronically Signed: Jann Vallecillo MD at 19:13 EST , Service support , Laboratory Results - last 24 hr 04/08/18 04:44 Sodium 142 Potassium 4.3 Chloride 105 Carbon Dioxide 29.0 Anion Gap 8 BUN 26 H Creatinine 0.86 Estim Creat Clear Calc 41.03 Est GFR (MDRD) Af Amer 110 Est GFR (MDRD) Non-Af 91 BUN/Creatinine Ratio 30.3 H Glucose 141 H Calcium 8.5 Total Bilirubin 0.70 AST 16 ALT 26 Alkaline Phosphatase 58 Total Protein 6.3 L Albumin 2.9 L Globulin 3.4 Albumin/Globulin Ratio 0.9 Dr. Jonh Blair-neurology Operations: None Procedures: None Summary of Care Provided: The Patient is an 82-year-old male with a past medical history of GERD and BPH on no prescription medications who presented to the emergency room department at [facility] on 04/05/2018 complaining of intermittent dull and sharp stabbing sensation in his left head with light and sound sensitivity in addition to new onset blurry vision in the left eye. He did not give a history of previous migraines. Vital signs in the emergency room were temp 97.8, heart rate 77, blood pressure 148/75, respiratory rate 16 and he was 99% saturated on room air. White blood cell count was 5.8 and the hemoglobin and platelets were within normal limits. Sed rate was 11 and repeat was 19 2 days later. BMP was unremarkable. A CT scan of the head showed no acute disturbances. He was admitted to the hospital with a dx of atypical YBARRA and neuro w/u was initiated. Dr. Blair was consulted. MRI of the brain showed mild partial empty sella deformity but was otherwise normal. MRA of the brain showed diffusely narrowed A1 segment of the right anterior cerebral artery which may be a developmental variant. MRA of the neck showed bilateral cervical carotid and vertebral arteries to be normal. He was started on Tegretol by Dr. Blair with no relief of the pain. He was then treated with Decadron, Reglan and Toradol every 6 hours for 4 doses. The following day he was much improved and he was discharged home with a prescription for a Medrol Dosepak and Tegretol. He will follow-up with Dr. Blair in the office in 3-4 weeks. He was given a list of local primary care physicians accepting new patients and his son will make an appointment for him to be seen in 1-2 weeks. I did advise him if he starts to get a headache again to drink a cup of coffee and take 2 Excedrin as soon as the pain starts and to lie down in a quiet dark room to see if the headache can be aborted. GENERAL: alert, oriented X 3, Cooperative, looks much better today and the lights are on in the room and the shade open ORAL: moist mucosa, no mucosal lesions NECK: No JVD, supple, trachea midline LUNGS: CTA, symmetric chest expansion no rales, wheezes or rhonchi HEART: RRR, Normal S1 and S2, no rub, no gallop, bradycardic in the 50's currently ABDOMEN: soft, NT, ND, BS present, no guarding with palpation EXTREMITIES: no edema, no cyanosis, no calf tenderness, no rashes, pedal pulses on the R are diminished and so is the popliteal. the popliteal on the left is 3/3. Denies pain with ambulation. He does c/o cramps in the calves at night. SKIN: No rashes, no breakdown NEUROLOGIC: no focal neurologic deficits PSYCH: appropriate, normal affect, pleasant This note was generated with [employer] dictation software. It may contain incorrect words, spelling, and punctuation that were not noted in checking the note before signing. Patient Problems: Active and Suspected Problems Elevated TSH (Acute) Migraine (Acute) - Physical Exam Vital Signs Temp Pulse Resp BP Pulse Ox 97.7 F L 77 16 128/63 H 96 04/08/18 08:53 04/08/18 11:01 04/08/18 08:53 04/08/18 08:53 04/08/18 08:53 Oxygen Delivery Method Room Air Weight: 96 lb 8.999 oz Body Mass Index (BMI) 16.0 Intake and Output for Last 24 Hours 04/06/18 04/07/18 04/08/18 23:59 23:59 23:59 Intake Total 3249 / 3249 1735 / 1735 Output Total 150 / 150 Balance 3249 / 3249 1585 / 1585 Laboratory Tests Past 24 Hrs 04/08/18 04:44 Sodium 142 Potassium 4.3 Chloride 105 Carbon Dioxide 29.0 Anion Gap 8 BUN 26 H Creatinine 0.86 Estim Creat Clear Calc 41.03 Est GFR (MDRD) Af Amer 110 Est GFR (MDRD) Non-Af 91 BUN/Creatinine Ratio 30.3 H Glucose 141 H Calcium 8.5 Total Bilirubin 0.70 AST 16 ALT 26 Alkaline Phosphatase 58 Total Protein 6.3 L Albumin 2.9 L Globulin 3.4 Albumin/Globulin Ratio 0.9 Discharge Activity: Return to Normal Activity Call your doctor if you observe: Fever of 101 or Higher, Inability to urinate, Inability to have a bowel movement, Shortness of breath, Dizziness, Fainting spells, Chest pain, - - recurrent unilateral headaches Home Medications: Medications to take at Discharge Multivit-Min/FA/Lycopen/Lutein [Centrum Silver Men Tablet] 1 tab PO DAILY 04/05/18 Carbamazepine [Tegretol] 200 mg PO BIDCM #60 tablet 04/08/18 MethylPREDNISolone DosePak [Medrol DosePak] 4 mg PO UD #1 box 04/08/18 Following Prescrptions Were Given to Patient: MethylPREDNISolone DosePak [Medrol DosePak] 4 mg PO UD #1 box Carbamazepine [Tegretol] 200 mg PO BIDCM #60 tablet Primary Care Physician: Care Physician,No Primary [Primary Care Provider] - Please follow up with your Primary Care Physician in: has a list of local PCP's - follow up in 1-2 weeks. Please Follow Up With: Jonh Blair MD When: 3-4 weeks Patient Instructions: Self-Care for Headaches, Preventing Migraine Headaches: Triggers, Preventing Migraine Headaches: Medications and Lifestyle Changes Disposition: Home Minutes spent on discharge:: 30 Patient Condition:: Good Medical Necessity - Tobacco Use Smoking Status: Never smoker Tobacco Use: Non-smoker Meaningful Use Info Meaningful Use Diagnoses (Choose all that apply): None applicable Code Visit Inpatient E&M: 71367 Disch Hosp
--- NOTE | 2018-04-08 13:40 | NURSING ---
Addendum entered by Twila Myers 04/08/18 13:41: Copy of discharge instructions given to pt. Original Note: Discharge instructions reviewed with pt and son, verbalizes understanding.
== END 2018-04-08 14:01 | disposition home or self-care (01) | DRG 103 ==
LOC: ED 15:00 → PCU 16:17
PROVIDERS: Admitting Provider Family Medicine; Emergency Provider Emergency Medicine; Visit Provider Internal Medicine
DX: G43.909 Migraine, unspecified, not intractable, without status migrainosus (principal); E44.0 Moderate protein-calorie malnutrition; Z68.1 Body mass index [BMI] 19.9 or less, adult; K21.9 Gastro-esophageal reflux disease without esophagitis; N40.0 Benign prostatic hyperplasia without lower urinary tract symptoms; Z66 Do not resuscitate; R40.2412 Glasgow coma scale score 13-15, at arrival to emergency department; R79.89 Other specified abnormal findings of blood chemistry
CPT/HCPCS: 36415; 70450; 70544; 70547; 70551; 80048; 80053; 80061; 83735; 84100; 84439; 84443; 85025; 85610; 85652; 93005; 97802; 99282; J7030; J7040; A4216; J2405

== ENCOUNTER → 2018-04-29 14:12 | Outpatient (CLI) | payer MEDICARE, SELFPAY ==
[2018-04-07 12:29] VITALS: BMI 16.0
[2018-04-29 15:23] LABS: ALB/GLOB Ratio 0.9 RATIO (0.9-2.4); AST(SGOT) 15 U/L (15-37); Alanine Aminotransfer ALT/SGPT 20 U/L (16-61); Albumin, Serum 3.5 g/dL (3.2-5.0); Alkaline Phosphatase 76 U/L (45-117); Anion Gap 6 (5-15); BUN 12 mg/dL (7-18); Calcium,Total 8.8 mg/dL (8.5-10.1); Chloride 99 mmol/L (98-107); EST Glomerular Filtration Rate 98 mL/min (>60); Est Glom Filt Rate - Afr Amer 119 mL/min (>60); Globulin 3.8 g/dL (2.2-4.2); Glucose 107 mg/dL (74-106); Potassium 4.8 mmol/L (3.5-5.1); Protein, Total 7.3 g/dL (6.4-8.2); Sodium Level 135 mmol/L (136-145)
== END ==
PROVIDERS: Referring Provider Psychiatry & Neurology Neurology; Visit Provider Psychiatry & Neurology Neurology
DX: G50.0 Trigeminal neuralgia (principal)
CPT/HCPCS: 36415; 80053

== ENCOUNTER → 2019-09-12 | Outpatient (CLI) | payer MEDICARE, SELFPAY ==
[2018-04-07 12:29] VITALS: BMI 16.0
--- NOTE | 2019-09-12 08:52 | RAD_ITS ---
STUDY: X-RAY CHEST REASON FOR EXAM: Male, 83 years old. Weight loss, pain, constipation TECHNIQUE: PA and lateral views of the chest. COMPARISON: None. FINDINGS: Hyperinflation. Decreased bronchovascular markings in both lungs suggestive of emphysematous changes. There is no demonstrated pleural abnormality. Normal size heart. Calcified left hilar lymph nodes. Normal visualized pulmonary arteries. Normal visualized aortic arch and descending thoracic aorta. Normal visualized thoracic spine. Normal visualized ribs, clavicles, and shoulders. There is no demonstrated abnormality of the visualized soft tissue structures of the upper abdomen. RAD/Chest PA and Lateral IMPRESSION: Hyperinflation. Electronically Signed: Kurt Moyer, at 10:04 EDT , Service support ,
--- NOTE | 2019-09-12 09:13 | CT_ITS ---
STUDY: CT ABDOMEN AND PELVIS WITH CONTRAST REASON FOR EXAM: Male, 83 years old. Left sided abdomen pain, weight loss, weakness. No prior surgery. RADIATION DOSAGE (If Supplied By Facility): CTDIvol = ( 13.89 ) mGy, DLP = ( 215.89 ) mGycm TECHNIQUE: Transaxial images were obtained from the dome of the diaphragm to the symphysis pubis with oral contrast. Oral and amp; IV Gastrografin and amp; 75mL Isovue-300 was administered. Sagittal and coronal images were reconstructed. Individualized dose optimization techniques were used for this CT. COMPARISON: None. FINDINGS: The visualized lung bases are unremarkable. The visualized portions of the heart are within normal limits. Normal liver. Normal gallbladder and extrahepatic biliary system. There are multiple benign calcified granulomata of the spleen. Normal pancreas. Normal bilateral adrenal glands. Normal right kidney. Normal left kidney. Normal visualized stomach. Normal small intestine. A large amount of fecal material is seen throughout the colon. Scattered sigmoid diverticulosis. The appendix is visualized and appears normal. There is diffuse atherosclerotic calcification of the abdominal aorta and its major visceral branches, without a demonstrated aneurysm. Normal inferior vena cava. Normal retroperitoneum. Normal urinary bladder. There is enlargement of the prostate gland. It is inhomogeneous and measures 5.8 cm x 4 cm. Small amount of fluid is seen in the pelvis. Normal abdominal wall. Disc space narrowing at the CT/Abdomen/Pelvis WITH Contrast IMPRESSION: L3-L4 level. Inhomogeneous prostatic enlargement. Small amount of fluid in the pelvis. Large amount of fecal material is seen in the colon. Electronically Signed: Kurt Moyer, at 11:32 EDT , Service support ,
--- NOTE | 2019-09-12 09:15 | EKG12_ITS ---
Test Reason : WEIGHT LOSS Blood Pressure : / mmHG Vent. Rate : 058 BPM Atrial Rate : 058 BPM P-R Int : 162 ms QRS Dur : 082 ms QT Int : 390 ms P-R-T Axes : 080 036 072 degrees QTc Int : 382 ms Sinus bradycardia Otherwise normal ECG Confirmed by AMADOU VOGEL, JOSEPH ([id number]), editor producer UGO NIETO ([id number] on 09/13/2019 10:13:29 AM Referred By: Margy Grimes Confirmed By:JOSEPH TOBAR MD
[2019-09-12 09:16] LABS: Absolute Lymphocyte Count 1.48 X10^3/uL (0.83-4.51); Absolute Neutrophil Count 2.5 X10^3/uL (2.0-7.7); Basophil# 0.04 X10^3/uL; Basophil% 0.9 % (0-1); Eosinophil# 0.06 X10^3/uL; Eosinophils% 1.3 % (0-5); Hemoglobin 12.9 g/dL (13.0-16.5); Lymphocyte # 1.48 X10^3/ul (4.0); Lymphocyte % 33.3 % (19-41); Mean Corp Hgb Conc 31.5 g/dL (32-36); Mean Corpuscular Hgb 31.3 pg (27.0-32.0); Mean Corpuscular Volume 99.5 fL (80-94); Mean Platelet Vol. 10.8 fl (6.2-12.0); NRBC Flagged by Analyzer 0 % (0-5); Neutrophil # 2.45 X10^3/uL (2.7-7.7); Neutrophil % 55.1 % (47-70); Platelet Count 193 K/mm3 (150-450); RBC Distribution Width CV 13.6 % (11.6-14.6); RBC Distribution Width SD 49.4 fl (35.1-43.9); Red Blood Count 4.12 M/mm3 (4.6-6.2); White Blood Count 4.5 K/mm3 (4.4-11.0)
[2019-09-12 09:47] LABS: ALB/GLOB Ratio 0.9 RATIO (0.9-2.4); AST(SGOT) 18 U/L (15-37); Alanine Aminotransfer ALT/SGPT 24 U/L (16-61); Albumin, Serum 3.4 g/dL (3.2-5.0); Alkaline Phosphatase 65 U/L (45-117); Anion Gap 7 (5-15); BUN 14 mg/dL (7-18); BUN/Creat Ratio 12.5 RATIO (10-20); Calcium,Total 8.9 mg/dL (8.5-10.1); Chloride 103 mmol/L (98-107); Creatinine, Serum 1.12 mg/dL (0.70-1.30); EST Glomerular Filtration Rate 66 mL/min (>60); Est Glom Filt Rate - Afr Amer 80 mL/min (>60); Globulin 3.6 g/dL (2.2-4.2); Glucose 174 mg/dL (74-106); PSA,Total - Annual Screen 2.05 ng/mL (0.00-4.00); Potassium 4.2 mmol/L (3.5-5.1); Sodium Level 141 mmol/L (136-145); Thyroid Stim Hormone (TSH) 8.04 uIU/mL (0.358-3.74)
== END | disposition home or self-care (01) ==
LOC: CT 09:09
PROVIDERS: Referring Provider Family Medicine; Visit Provider Family Medicine
DX: R63.4 Abnormal weight loss (principal); R35.8 Other polyuria; R53.1 Weakness; R53.83 Other fatigue; R19.4 Change in bowel habit; R00.2 Palpitations; R00.0 Tachycardia, unspecified; Z12.5 Encounter for screening for malignant neoplasm of prostate
CPT/HCPCS: 36415; 71046; 74177; 80053; 84153; 84443; 85025; 93005; Q9967; G0103

== ENCOUNTER 2019-09-19 07:46 | Day surgery (SDC) | payer MEDICARE, SELFPAY ==
[2019-09-16 09:55] VITALS: BMI 16.0
[2019-09-18 13:44] LABS: Probe Check PASS; Specimen Processing Control PASS
[2019-09-19 08:04] VITALS: BP 149/60; PULSE 59; RESP 16; TEMP 36.6; O2SAT 99; BMI 16.7
[2019-09-19] MEDS: Lactated Ringers 1,000 ML 100 ML IV (08:19)
--- NOTE | 2019-09-19 08:49 | PCM.HP.BLA ---
History and Physical Date of Admission: 09/19/19 LIVE [facility] Office Visit Surgical Patient Name: XAVI FINN Date of : 1935 Patient Status: Ambulatory Office Visit Attending Provider: Justin Arrington Date: 09/16/19 09:33 Initialization Date: 09/16/19 09:33 Additional CC's: Dr. Margy Grimes Intake Vital Signs 09/16/19 BMI 16.0 09/16/19 Height 5 ft 4.5 in 09/16/19 Weight: 99 lb 09/16/19 BMI 16.7 09/16/19 BP 176/65 H 09/16/19 Blood Pressure Location Rt brachial 09/16/19 Position Sitting 09/16/19 Respiration 18 09/16/19 Pulse 64 09/16/19 Pulse Source Monitor 09/16/19 Temp 97.7 F L 09/16/19 Temp Source Temporal 09/16/19 Pulse Oximetry (%) 97 09/16/19 Oxygen Delivery Method room air Intake Visit Reasons: CSCOPE/ EGD, WT LOSS Chief Complaint: Intractable YBARRA Webmaster Required: No Is patient in pain?: No Allergies carbamazepine [From Tegretol] Allergy (Unknown, Verified 09/16/19 09:51) Unknown Medications Multivit-Min/FA/Lycopen/Lutein [Centrum Silver Men Tablet] 1 tab PO DAILY 04/05/18 [History Confirmed 09/16/19] levothyroxine 25 mcg capsule 25 mcg PO DAILY 09/16/19 [History] psyllium husk 0.4 gram capsule 0.4 g PO BID cap 09/16/19 [History Confirmed 09/16/19] [facility] Medical History Nausea (Acute) Abdominal pain (Acute) Hemorrhoids (Acute) Constipation (Acute) Cough (Acute) SOB (shortness of breath) (Acute) Anxiety (Acute) Heart murmur (Acute) Arthritis (Acute) Dysphagia (Acute) Fatigue (Acute) Weight loss (Acute) Epigastric pain (Acute) Surgical History Hx of colonoscopy (Acute) History of esophagogastroduodenoscopy (EGD) (Acute) Hydrocele in adult (Acute) Hx of left inguinal hernia repair (Acute) Hx of bilateral inguinal hernia repair (Acute) Hx of hemorrhoidectomy (Acute) H/O eye surgery (Acute) Family History Son , unknown cancer- @ 50 Cancer Social History Smoking Status: Never smoker second hand exposure: No alcohol intake: never substance use type: does not use caffeine: Yes what type of physical activity do you participate in: walking frequency: daily seatbelt use: always HPI HPI Surgical H&P: Yes HPI: XAVI FINN, is a 83 M who presents to the office today for Evaluation for endoscopy. Patient was seen by his new primary care doctor and was noted to be anemic with a hemoglobin of 12.9. Patient has been having problems with constipation abnormal weight loss was originally he was 120 and now his weight is 99 over this past year. He is also noticed that he has had a significant change in the caliber of his stools. He is not complaining of any rectal bleeding His last endoscopy he believes was almost 15 years ago. At that time it was normal and he was having problems with hemorrhoids. ROS General General: Yes weight change and fatigue; no appetite, colon cancer, breast cancer or weakness HEENT HEENT: Yes difficulty swallowing and eye surgery; no eye injury, swollen glands or hoarseness Endo Endocrine: No thyroid disease, diabetes mellitus, thyroid cancer, Hair loss, heat intolerance or cold intolerance Skin Skin: No rash or changing moles Musc Musculoskeletal: Yes arthritis; no back problems, rheumatoid arthritis, gout or joint pain Cardio Cardiovascular: Yes murmur; no pacemaker, heart disease, atrial fibrillation, high blood pressure, heart attack, heart stent, palpitations, shortness of breat with exertion or chest pain Psych Psychiatric: Yes anxiety; no depression or hearing voices Resp Respiratory: Yes shortness of breath, No sleep apnea, Yes cough, No COPD, No asthma, No emphysema, No wheezing Gastro Gastrointestinal: Yes abdominal pain, Yes nausea or vomiting, No diarrhea, Yes constipation, No blood in stool, No acid reflux, No hemorrhoids, No ulcers, No gallbladder problem, No black,tarry stools Edmundo Hematologic: No blood thinners, No blood disorders, No bleeding, No anemia, No blood clots Neuro Neurologic: No weakness Exam Const General: no acute distress, well developed, well hydrated Orientation: oriented to person, oriented to place, oriented to time [facility] Head: normocephalic, atraumatic Ears: external ears normal Mouth: moist mucous membranes Eyes Sclera: sclerae normal Pupils: normal by confrontation Neck Neck: no lymphadenopathy noted Neck mass: No Thyroid: thyroid normal, symmetrical Chest Chest palpation & inspection: normal inspection of the chest Resp Effort & Inspection: normal respiratory effort Auscultation: clear to auscultation bilaterally Percussion: percussion normal Cardio Rate: regular rate Rhythm: regular rhythm Heart Sounds: murmur GI Palpation: soft, no hepatosplenomegaly, no masses, nontender Rectal Exam: other Other: Rectal exam deferred. Extrem General: normal to inspection, no clubbing, cyanosis or edema Assessment & Plan Problems 1. Anemia, unspecified type D64.9 2. Abnormal weight loss R63.4 3. Change in stool caliber R19.5 4. Constipation, unspecified constipation type K59.00 Plan I have discussed the above with the patient. I have offered the patient colonoscopy As well as an EGD for evaluation. I have explained the risks/benefits of the procedure and described the procedure. I have discussed the risks with the patient, including but not limited to: infection, bleeding, perforation of the GI tract requiring emergency surgery, inability to complete the procedure, injury to any internal organs, complications of anesthesia, etc. - the patient understands and agrees to proceed. I have answered all the patient's questions to the patient's satisfaction and the patient has no further questions. The patient has been given instructions for the colon cleansing preparation. Coding Level of Care Code Off vis,new,level 3 Diagnoses Anemia, unspecified type D64.9 ??Anemia type: unspecified type Abnormal weight loss R63.4 Change in stool caliber R19.5 Constipation, unspecified constipation type K59.00 ??Constipation type: unspecified constipation type I have re-examined the patient. There are no clinical changes since date of exam.
--- NOTE | 2019-09-19 09:00 | IMM_PTH ---
PATIENT: XAVI FINN LOC: EN U#:[id number] AGE/SX: 83/M ROOM: RE09/19/[address]: Dr. Justin Arrington MD : 1935 BED: DIS: 09/19/2019 SPEC #: [id number] RECD: 09/19/19 12:26 STATUS: STEPHEN RERegina #: [id number] YOUSUF: 09/19/19 09:[address]: Justin Arrington DEPT: IMMUNOHISTOCHEMISTRY RECD BY: Denisse Michael ENTERED: 09/19/19 12:26 SP TYPE: IMMUNO OTHR DR: Dr. Margy Grimes MD Tissues: Stomach, NOS Procedures: H Pylori (initial) PHYSICIAN & INSTITUTION [place] [id number] SPECIMEN INFORMATION: Tissue Source: Antrum biopsy Clinical Info: Anemia, constipation, change in stool caliber, abnormal weight loss Specimen Number: [id number] CPT code: 42647 METHODOLOGY: Deparaffinized sections of prefer/formalin-fixed tissue or PAP/DQ stained slides are incubated with monoclonal/polyclonal antibodies/oligonucleotide probes. Localization is made via biotin free immunoperoxidase method. Appropriate controls are performed and reacted as expected. Results on target cell population are indicated in the following table: RESULTS: ANTIBODY / CLONE RESULT H Pylori (polyclonal) negative These tests were developed and their performance characteristics determined by [facility]. They may not have been cleared or approved by the U.S. Food and Drug Administration. The FDA has determined that such clearance or approval is not necessary. INTERPRETATION: Antrum biopsy: Negative for Helicobacter pylori organisms. SJ:mason 09/20/19
--- NOTE | 2019-09-19 09:00 | EGD_PTH ---
PATIENT: XAVI FINN LOC: EN U#:[id number] AGE/SX: 83/M ROOM: RE09/19/[address]: Dr. Justin Arrington MD : 1935 BED: DIS: 09/19/2019 SPEC #: [id number] RECD: 09/19/19 09:43 STATUS: STEPHEN MARILEE #: [id number] YOUSUF: 09/19/19 09:[address]: Justin Arrington DEPT: SURGICAL PATHOLOGY RECD BY: Black Ovalles ENTERED: 09/19/19 10:45 SP TYPE: EGD BIOPSY OTHR DR: Dr. Margy Grimes MD Tissues: Gastric mucous membrane Procedures: Surgery Specimen Level IV HEADER OPERATION: Colonoscopy, EGD ([facility]) PRE-OP DIAGNOSIS: Anemia, constipation, change in stool caliber, abnormal weight loss TISSUE SUBMITTED: Antrum biopsy for histo and H. pylori MICROSCOPIC DIAGNOSIS Antrum biopsy: Mild gastritis. See microscopic description and comment. :mason 09/20/19 COMMENT The results of immunohistochemistry for Helicobacter pylori will be reported separately ([id number]). MICROSCOPIC DESCRIPTION Slides are reviewed. The specimen shows fragments of gastric mucosa with chronic inflammatory cell infiltrates in the lamina propria consisting of lymphocytes and plasma cells, consistent with mild chronic gastritis. GROSS DESCRIPTION Received in fixative is one container labeled with the patient's name and designated antrum biopsy. The specimen consists of one irregular fragment of light grady soft tissue that measures 0.7 x 0.2 x 0.1 cm. The specimen is totally submitted in one cassette. / AM:mason 09/19/19 TC:3 CPT: 41498
[2019-09-19 09:26] VITALS: BP 126/56; BP 149/60; PULSE 56; RESP 14; TEMP 36.5; O2SAT 100
--- NOTE | 2019-09-19 09:27 | OP.CCLET_ITS ---
09/19/2019 No Primary Care Physician Re : Upper GI endoscopy procedure for Nii Siu Dear Care Physician This procedure was performed on Thursday, September 19, 2019. My impressions and recommendations are as follows: Impressions : - Normal esophagus. - Gastritis. Biopsied. - Normal examined duodenum. No specimens collected. Recommendations : - Discharge patient to home. - Resume previous diet. - Continue present medications. - Await pathology results. - Repeat upper endoscopy (date not yet determined) for surveillance. - Return to my office in 1 week. My findings are described in the full procedure note, which is enclosed. If I can be of further assistance, please feel free to contact me at Doctor phone number(s): , Fax: [phone], Work: . Sincerely, MD Justin Mesa MD 09/19/2019 9:27:16 AM This report has been signed electronically.
--- NOTE | 2019-09-19 09:27 | OP.EGD_ITS ---
Patient Name: Nii Siu Procedure Date: 09/19/2019 8:56 AM Date of : 1935 Age: 83 Procedure: Upper GI endoscopy Indications: Iron deficiency anemia, Weight loss Providers: Justin Arrington MD Medicines: See the Anesthesia note for documentation of the administered medications Patient Profile: This is an 83 year old male. Refer to note in patient chart for documentation of history and physical. Complications: No immediate complications. Procedure: Pre-Anesthesia Assessment: - Prior to the procedure, a History and Physical was performed, and patient medications and allergies were reviewed. The patient's tolerance of previous anesthesia was also reviewed. The risks and benefits of the procedure and the sedation options and risks were discussed with the patient. All questions were answered, and informed consent was obtained. Prior Anticoagulants: The patient has taken no previous anticoagulant or antiplatelet agents. ASA Grade Assessment: II - A patient with mild systemic disease. After reviewing the risks and benefits, the patient was deemed in satisfactory condition to undergo the procedure. After obtaining informed consent, the endoscope was passed under direct vision. Throughout the procedure, the patient's blood pressure, pulse, and oxygen saturations were monitored continuously. The gastroscope was introduced through the mouth, and advanced to the second part of duodenum. The upper GI endoscopy was accomplished without difficulty. The patient tolerated the procedure well. Scope In: 9:05:48 AM Scope Out: 9:08:44 AM Total Procedure Duration Time 0 hours 2 minutes 56 seconds Findings: The examined esophagus was normal. Localized minimal inflammation characterized by erythema was found in the prepyloric region of the stomach. Biopsies were taken with a cold forceps for Helicobacter pylori testing. The examined duodenum was normal. No biopsies or other specimens were collected for this exam. Impression: - Normal esophagus. - Gastritis. Biopsied. - Normal examined duodenum. No specimens collected. Recommendation: - Discharge patient to home. - Resume previous diet. - Continue present medications. - Await pathology results. - Repeat upper endoscopy (date not yet determined) for surveillance. - Return to my office in 1 week. Procedure Code(s): --- Professional --- 64674, Esophagogastroduodenoscopy, flexible, transoral; with biopsy, single or multiple Diagnosis Code(s): --- Professional --- K29.70, Gastritis, unspecified, without bleeding D50.9, Iron deficiency anemia, unspecified R63.4, Abnormal weight loss CPT copyright 2017 [employer]. All rights reserved. The codes documented in this report are preliminary and upon flange turner review may be revised to meet current compliance requirements. MD Justin Mesa MD 09/19/2019 9:27:16 AM This report has been signed electronically. Number of Addenda: 0 Note Initiated On: 09/19/2019 8:56 AM
[2019-09-19 09:30] VITALS: BP 122/68; BP 149/60; PULSE 68; RESP 16; O2SAT 99
--- NOTE | 2019-09-19 09:30 | OP.COLON_ITS ---
Patient Name: Nii Siu Procedure Date: 09/19/2019 9:10 AM Date of : 1935 Age: 83 Procedure: Colonoscopy Indications: Iron deficiency anemia, Change in stool caliber, Constipation, Weight loss Providers: Justin Arrington MD Medicines: See the Anesthesia note for documentation of the administered medications Patient Profile: This is an 83 year old male. Refer to note in patient chart for documentation of history and physical. Last Colonoscopy: more than 10 years ago. Complications: No immediate complications. Procedure: Pre-Anesthesia Assessment: - Prior to the procedure, a History and Physical was performed, and patient medications and allergies were reviewed. The patient's tolerance of previous anesthesia was also reviewed. The risks and benefits of the procedure and the sedation options and risks were discussed with the patient. All questions were answered, and informed consent was obtained. Prior Anticoagulants: The patient has taken no previous anticoagulant or antiplatelet agents. ASA Grade Assessment: II - A patient with mild systemic disease. After reviewing the risks and benefits, the patient was deemed in satisfactory condition to undergo the procedure. After I obtained informed consent, the scope was passed under direct vision. Throughout the procedure, the patient's blood pressure, pulse, and oxygen saturations were monitored continuously. The colonoscope was introduced through the anus and advanced to the cecum, identified by appendiceal orifice and ileocecal valve. The colonoscopy was performed without difficulty. The patient tolerated the procedure well. The quality of the bowel preparation was good. Scope In: 9:11:16 AM Scope Withdrawal Time 0 hours 6 minutes 7 seconds Scope Out: 9:21:51 AM Total Procedure Duration Time 0 hours 10 minutes 35 seconds Findings: A few small-mouthed diverticula were found in the sigmoid colon and descending colon. No biopsies or other specimens were collected for this exam. The exam was otherwise without abnormality on direct and retroflexion views. Impression: - Diverticulosis in the sigmoid colon and in the descending colon. No specimens collected. - The examination was otherwise normal on direct and retroflexion views. Recommendation: - Discharge patient to home. - Resume previous diet. - Continue present medications. - Repeat colonoscopy is not recommended due to current age (66 years or older) for screening purposes. - Return to primary care physician in 1 week. Procedure Code(s): --- Professional --- 95662, Colonoscopy, flexible; diagnostic, including collection of specimen(s) by brushing or washing, when performed (separate procedure) Diagnosis Code(s): --- Professional --- D50.9, Iron deficiency anemia, unspecified R19.5, Other fecal abnormalities K59.00, Constipation, unspecified R63.4, Abnormal weight loss K57.30, Diverticulosis of large intestine without perforation or abscess without bleeding CPT copyright 2017 [employer]. All rights reserved. The codes documented in this report are preliminary and upon curing pickling packer review may be revised to meet current compliance requirements. MD Justin Mesa MD 09/19/2019 9:30:23 AM This report has been signed electronically. Number of Addenda: 0 Note Initiated On: 09/19/2019 9:10 AM
--- NOTE | 2019-09-19 09:31 | OP.CCLET_ITS ---
09/19/2019 No Primary Care Physician Re : Colonoscopy procedure for Nii Siu Dear Care Physician This procedure was performed on Thursday, September 19, 2019. My impressions and recommendations are as follows: Impressions : - Diverticulosis in the sigmoid colon and in the descending colon. No specimens collected. - The examination was otherwise normal on direct and retroflexion views. Recommendations : - Discharge patient to home. - Resume previous diet. - Continue present medications. - Repeat colonoscopy is not recommended due to current age (66 years or older) for screening purposes. - Return to primary care physician in 1 week. My findings are described in the full procedure note, which is enclosed. If I can be of further assistance, please feel free to contact me at Doctor phone number(s): , Fax: [phone], Work: . Sincerely, MD Justin Mesa MD 09/19/2019 9:30:23 AM This report has been signed electronically.
[2019-09-19 09:35] VITALS: BP 134/63; BP 149/60; PULSE 53; RESP 16; O2SAT 97
[2019-09-19 09:41] VITALS: BP 140/60; BP 149/60; PULSE 55; RESP 16; TEMP 36.7; O2SAT 99
[2019-09-19 10:16] VITALS: BP 149/60
== END 2019-09-19 10:16 | disposition home or self-care (01) ==
LOC: EN 07:48 → AC 07:49
PROVIDERS: Anesthesiology; PCP Family Medicine; Referring Provider Family Medicine; Visit Provider Surgery
PROC: 0DJD8ZZ Inspection of Lower Intestinal Tract, Via Natural or Artificial Opening Endoscopic (ICD-10-PCS; CPT 45378; principal; 2019-09-19 08:55)
DX: K29.70 Gastritis, unspecified, without bleeding (principal); K57.30 Diverticulosis of large intestine without perforation or abscess without bleeding; D50.9 Iron deficiency anemia, unspecified; K59.00 Constipation, unspecified; K64.9 Unspecified hemorrhoids; R13.10 Dysphagia, unspecified; Z11.59 Encounter for screening for other viral diseases; M19.90 Unspecified osteoarthritis, unspecified site; F41.9 Anxiety disorder, unspecified; R63.4 Abnormal weight loss; Z68.1 Body mass index [BMI] 19.9 or less, adult; Z79.899 Other long term (current) drug therapy
CPT/HCPCS: 43239; 45378; 87635; 88305; 88342; G2023; J7120; J2405; U0003

== ENCOUNTER 2020-03-09 13:05 | Observation (INO) | payer MEDICARE, SELFPAY ==
[2020-03-09] VITALS (8 sets, daily range): BP systolic 101–166; BP diastolic 56–81; PULSE 57–89; RESP 16–20; TEMP 36.2–36.8; O2SAT 94–99; BMI 17.1; BMI 16.4
--- NOTE | 2020-03-09 13:41 | EKG12_ITS ---
Test Reason : Blood Pressure : / mmHG Vent. Rate : 071 BPM Atrial Rate : 071 BPM P-R Int : 162 ms QRS Dur : 078 ms QT Int : 362 ms P-R-T Axes : 077 011 064 degrees QTc Int : 393 ms Normal sinus rhythm Possible Left atrial enlargement Borderline ECG Confirmed by AMADOU VOGEL, JOSEPH ([id number]), editor magazine KRYSTINA ADLER ([id number]) on 03/12/2020 1:14:59 PM Referred By: TELMA Confirmed By:JOSEPH TOBAR MD
--- NOTE | 2020-03-09 13:56 | ED.DCSUM_ITS ---
- ER Visit Summary Date of Service: 03/09/20 Chief Complaint: Chest pain History of Present Illness: The patient is a 84 M presenting with chest pain. Patient complains of intermittent midsternal chest pain that has been waxing and waning over the last several days. He does not recall anything that makes this better or worse. He has associated nausea, shortness of breath, diaphoresis. He has had chills and mild cough. He has chronic abdominal pain that is no worse than usual. He has had dizziness with no syncope. He has a history of A. fib and hypothyroidism. He is not a smoker. Physical Examination: Vitals are stable. Patient is afebrile. Alert no acute distress. HEENT exam is unremarkable. Neck is supple. Lungs are clear and equal bilaterally. Heart is regular rate and rhythm. Abdomen is soft nontender nondistended. Extremities are unremarkable. Skin is warm and dry. No focal neurologic deficit. Remainder of exam is unremarkable. Emergency Department Course and Treatment: EKG is sinus rhythm rate of 71 with no acute ischemic changes. Chest x-ray shows no acute process. CBC, chemistries unremarkable other than glucose 195. Troponin negative. Covid negative. He was given aspirin on arrival. He is chest pain-free on reevaluation. Discussed with hospitalist for observation. Disposition: Observation Impression: Chest pain This note was generated with [employer] dictation software. It may contain incorrect words, spelling, and punctuation that were not noted in review of the chart prior to signing ED Disposition - Plan for ED Patient: Referrals: Margy Grimes MD [Primary Care Provider] -
[2020-03-09] MEDS: Aspirin 81 MG TAB.CHEW 324 MG PO (13:58)
[2020-03-09 14:00] LABS: Absolute Lymphocyte Count 1.07 X10^3/uL (0.83-4.51); Basophil# 0.04 X10^3/uL; Basophil% 0.7 % (0-1); Eosinophil# 0.01 X10^3/uL; Eosinophils% 0.2 % (0-5); Hematocrit 40.9 % (40-54); Hemoglobin 13.1 g/dL (13.0-16.5); Lymphocyte # 1.07 X10^3/ul (4.0); Lymphocyte % 18.8 % (19-41); Mean Corpuscular Hgb 31.6 pg (27.0-32.0); Mean Corpuscular Volume 98.8 fL (80-94); Mean Platelet Vol. 11.3 fl (6.2-12.0); Monocyte# 0.53 X10^3/uL; Monocyte% 9.3 % (0-10); NRBC Flagged by Analyzer 0 % (0-5); Neutrophil # 4.02 X10^3/uL (2.7-7.7); Neutrophil % 70.8 % (47-70); Platelet Count 209 K/mm3 (150-450); RBC Distribution Width CV 13.9 % (11.6-14.6); RBC Distribution Width SD 50.6 fl (35.1-43.9); Red Blood Count 4.14 M/mm3 (4.6-6.2); White Blood Count 5.7 K/mm3 (4.4-11.0)
--- NOTE | 2020-03-09 14:05 | RAD_ITS ---
STUDY: X-RAY CHEST REASON FOR EXAM: Male, 84 years old. Chest pain TECHNIQUE: Single AP portable view of the chest. COMPARISON: Comparison is made with prior study dated 09/12/2019. FINDINGS: EKG electrodes are seen. Hyperinflation. The lungs are clear. There is no demonstrated pleural abnormality. Normal size heart. Normal mediastinum and jens. Normal visualized pulmonary arteries. There is atherosclerotic calcification of the aortic arch with tortuosity. There are diffuse degenerative changes of the visualized thoracic spine. Normal visualized ribs, clavicles, and shoulders. There is no demonstrated abnormality of the visualized soft tissue structures of the upper abdomen. RAD/Chest 1 View (Portable) IMPRESSION: Hyperinflation. The lungs are clear. Electronically Signed: Kurt Moyer, at 14:20 EST , Service support ,
[2020-03-09 14:13] LABS: Anion Gap 6 (5-15); BUN 16 mg/dL (7-18); BUN/Creat Ratio 16.2 RATIO (10-20); Calcium,Total 9.4 mg/dL (8.5-10.1); Chloride 100 mmol/L (98-107); Creatinine, Serum 0.99 mg/dL (0.70-1.30); EST Glomerular Filtration Rate 77 mL/min (>60); Est Glom Filt Rate - Afr Amer 93 mL/min (>60); Estimated Creatinine Clearance 36.61 ml/min; Glucose 195 mg/dL (74-106); Potassium 3.7 mmol/L (3.5-5.1); Sodium Level 138 mmol/L (136-145)
--- NOTE | 2020-03-09 17:02 | PCM.HP.STD ---
History of Present Illness Date of Admission: 03/09/20 Chief Complaint: Chest pain. The patient is a 84 year old M who presents emergency room due to chest pain. Patient states his symptoms began about a week ago and have been intermittent since that time. Patient describes intermittent associated shortness of breath, weakness, palpitations with episodes of chest pain. He denies any aggravating or alleviating factors. He states episodes have resolved on their own. He reports he is fairly active, working in his garage all day and splitting wood however over the past week he has not felt comfortable doing these activities. He states some episodes of chest pain are very brief and some last longer, unable to report specific amount of time. He denies syncope. Reports occasional lightheadedness associated with episodes. Denies previous cardiac history. He has a past medical history of hypothyroidism, BPH. Past Medical History Past Medical History (Chronic Problems): Chronic Problems (Last Reviewed 09/16/19 @ 10:[address] Justin Arrington MD) Anemia (Chronic) BPH (benign prostatic hyperplasia) (Chronic) GERD (gastroesophageal reflux disease) (Chronic) Malnutrition (Chronic) Medical History: Medical History (Last Reviewed 09/16/19 @ 10:[address] Justin Arrington MD) Nausea (Acute) R11.0 Abdominal pain (Acute) R10.9 Hemorrhoids (Acute) K64.9 Constipation (Acute) K59.00 Cough (Acute) R05 SOB (shortness of breath) (Acute) R06.02 Anxiety (Acute) F41.9 Heart murmur (Acute) R01.1 Arthritis (Acute) M19.90 Dysphagia (Acute) R13.10 Fatigue (Acute) R53.83 Weight loss (Acute) R63.4 Epigastric pain R10.13 Allergies carbamazepine [From Tegretol] Allergy (Unknown, Verified 03/09/20 13:12) YBARRA, PAIN ALL OVER, CAN'T FEEL, I WAS ALMOST Home Medications: Ambulatory Orders Medication Instructions Recorded Multivit-Min/FA/Lycopen/Lutein 1 tab PO DAILY 04/05/18 [Centrum Silver Men Tablet] Aspirin [Aspirin, Baby] 81 mg PO DAILY@0800 03/09/20 Levothyroxine Sodium 25 mcg PO DAILY 03/09/20 Psyllium Husk [Metamucil] 0.4 gm PO DAILY 03/09/20 Surgical History: Surgical History (Last Reviewed 09/16/19 @ 10:[address] Justin Arrington MD) Hx of colonoscopy (Acute) Z98.890 History of esophagogastroduodenoscopy (EGD) (Acute) Z98.890 Hydrocele in adult (Acute) N43.3 Hx of left inguinal hernia repair (Acute) Z98.890, Z87.19 Hx of bilateral inguinal hernia repair (Acute) Z98.890, Z87.19 Hx of hemorrhoidectomy (Acute) Z98.890 H/O eye surgery (Acute) Z98.890 Surgical History: - - Hydrocele repair, prostate surgery, hernia repair, hemorrhoidectomy. Psychiatric History: No pertinent psych hx Lives: Alone Smoking Status: Never smoker Alcohol: None Drugs: None - *Family History Maternal Family History: Family History (Last Reviewed 09/16/19 @ 10:[address] Justin Arrington MD) Son Cancer History Items: - - Patient denies any marked maternal or paternal family history include diabetes, heart disease, hypertension but states he is not sure. Paternal Family History: Family History (Last Reviewed 09/16/19 @ 10:[address] Justin Arrington MD) Son Cancer History Items: - - Patient denies any marked maternal or paternal family history include diabetes, heart disease, hypertension but states he is not sure. Review of Systems Constitutional: Denies: Chills, Fever, Weight Change HEENT: Denies: Head Aches, Sinus Congestion, Sinus Drainage Cardiovascular: Reports: Chest Pain, Palpitations. Denies: Light Headedness, Syncope Respiratory: Denies: Cough, Shortness of breath at rest, Sputum production Gastrointestinal: Denies: Abdominal Pain, Nausea, Vomiting Genitourinary: Denies: Dysuria Musculoskeletal: Denies: Joint Pain, Joint Tenderness Skin: Denies: Rash, Wounds Neurological: Denies: Numbness, Tingling, Focal weakness Psychiatric: Denies: Anxiety, Depression, Homicidal Ideations, Suicidal Ideations Hematologic/ Lymphatic: Denies: Easy Bruising, Easy Bleeding VTE Information - Inpt Only VTE Present on Admission: No VTE Mechan Device Prophylaxis: None VTE Pharm Prophylaxis ordered?: Yes - Physical Exam Vitals/I&O's: Vital Signs Temp Pulse Resp BP Pulse Ox 97.2 F L 62 16 136/81 H 97 03/09/20 16:45 03/09/20 16:45 03/09/20 16:45 03/09/20 16:45 03/09/20 16:45 Oxygen Delivery Method Room Air Weight: 102 lb 11.767 oz Body Mass Index (BMI) 17.1 General: Alert, Oriented x3, Cooperative HEENT: Atraumatic, PERRLA, EOMI, Normocephalic Neck: Supple, No JVD, Negative Carotid Bruits Lungs: Clear to auscultation, Normal air movement Cardiovascular: Regular rate, No murmurs Abdomen: Bowel Sounds Present, Soft, Non Tender Extremities: No clubbing, No cyanosis, No edema, Capillary Refill Less than 3 Seconds Skin: No rashes, No breakdown Musculoskeletal: No Tenderness to Palpation of Joints or Extremities Neurological: Cranial nerves II-XII grossly intact, Neuro grossly intact Psych/Mental Status: Normal Affect, Appropriate Microbiology Past 72 Hours 03/09/20 14:00 Mucosa - Nose SARS-CoV-2 Antigen (Rapid) - Final Laboratory Results 03/09/20 13:10: WBC 5.7, RBC 4.14 L, Hgb 13.1, Hct 40.9, MCV 98.8 H, MCH 31.6, MCHC 32.0, RDW Std Deviation 50.6 H, RDW Coeff of Cristopher 13.9, Plt Count 209, MPV 11.3, Immature Gran % (Auto) 0.200, Neut % (Auto) 70.8 H, Lymph % (Auto) 18.8 L, [place] % (Auto) 9.3, Eos % (Auto) 0.2, Baso % (Auto) 0.7, Absolute Neuts (auto) 4.0, Absolute Lymphs (auto) 1.07, Nucleated RBC % 0 03/09/20 13:10: Sodium 138, Potassium 3.7, Chloride 100, Carbon Dioxide 32.0, Anion Gap 6, BUN 16, Creatinine 0.99, Estim Creat Clear Calc 36.61, Est GFR (MDRD) Af Amer 93, Est GFR (MDRD) Non-Af 77, BUN/Creatinine Ratio 16.2, Glucose 195 H, Calcium 9.4, Troponin I < 0.015 Assessment/Plan All Active Problems (Last Reviewed 06/12/20 @ 10:[address] Justin Arrington MD) Hx of colonoscopy (Acute) History of esophagogastroduodenoscopy (EGD) (Acute) Hydrocele in adult (Acute) Hx of left inguinal hernia repair (Acute) Hx of bilateral inguinal hernia repair (Acute) Hx of hemorrhoidectomy (Acute) Nausea (Acute) Abdominal pain (Acute) Hemorrhoids (Acute) Constipation (Acute) Cough (Acute) SOB (shortness of breath) (Acute) Anxiety (Acute) Heart murmur (Acute) Arthritis (Acute) H/O eye surgery (Acute) Dysphagia (Acute) Fatigue (Acute) Weight loss (Acute) Elevated TSH (Acute) Migraine (Acute) CVA (cerebral vascular accident) (Ruled-out) 1. Chest pain-trend enzymes. EKG without ST-T changes. Stress test in a.m. Check lipid profile in a.m. Continue aspirin. 2. BPH-patient reports recent worsening of symptoms. Check PSA. Continue Flomax. 3. Hypothyroidism-continue Synthroid regimen. Check TSH. DVT prophylaxis-Lovenox subcu This patient was seen by AUSTIN Walter under the supervision of Dr. Fuentes.
--- NOTE | 2020-03-09 17:38 | EKG12_ITS ---
Test Reason : CP Blood Pressure : / mmHG Vent. Rate : 054 BPM Atrial Rate : 054 BPM P-R Int : 160 ms QRS Dur : 082 ms QT Int : 404 ms P-R-T Axes : 076 018 071 degrees QTc Int : 383 ms Sinus bradycardia Otherwise normal ECG Confirmed by EDER VOGEL, ROJAS ([id number]), offline editor JAYSON CORTES ([id number]) on 03/14/2020 1:18:52 PM Referred By: NIALL Confirmed By:ROJAS GAINES MD
[2020-03-09 18:17] LABS: Thyroid Stim Hormone (TSH) 5.34 uIU/mL (0.358-3.74)
[2020-03-09] MEDS: Tamsulosin HCl 0.4 MG Capsule PO (19:39)
[2020-03-10 02:59] VITALS: PULSE 63
[2020-03-10 03:13] VITALS: BP 98/50; PULSE 60; RESP 16; TEMP 36.8; O2SAT 96
[2020-03-10] MEDS: Aspirin 81 MG TAB.CHEW PO (05:50)
[2020-03-10] MEDS: Levothyroxine 25 MCG TABLET PO (05:50)
[2020-03-10 06:24] LABS: Cholesterol 235 mg/dL (200); High Density Lipoprotein 74 mg/dL; Triglycerides 84 mg/dL; Very Low Density Lipoprotein 17 mg/dL (5-40)
[2020-03-10 07:06] VITALS: PULSE 55
[2020-03-10 08:17] VITALS: BP 115/55; PULSE 55; RESP 15; TEMP 36.8; O2SAT 98
--- NOTE | 2020-03-10 11:59 | DCINST_ITS ---
You will use the following diet at home:: No restrictions Discharge Activity: Return to Normal Activity Call your doctor if you observe: Shortness of breath, Dizziness, Fainting spells, Chest pain Allergies/Adverse Reactions: Allergies carbamazepine [From Tegretol] Allergy (Unknown, Verified 03/09/20 13:12) YBARRA, PAIN ALL OVER, CAN'T FEEL, I WAS ALMOST Medications to take at Discharge Multivit-Min/FA/Lycopen/Lutein [Centrum Silver Men Tablet] 1 tab PO DAILY 04/05/18 Aspirin [Aspirin, Baby] 81 mg PO DAILY@0800 03/09/20 Levothyroxine Sodium 25 mcg PO DAILY 03/09/20 Psyllium Husk [Metamucil] 0.4 gm PO DAILY 03/09/20 Primary Care Physician: Margy Grimes MD [Primary Care Provider] - Please follow up with your Primary Care Physician in: 1 Week Test Results: Test results from this visit will be discussed in further detail at your follow- up appointment, if applicable. Proposed Discharge Date: 03/10/20
--- NOTE | 2020-03-10 12:04 | STRESSREP ---
Stress Test Report Date: 03-10-2020 Procedure: Pharmacologic stress nuclear imaging study Indications: Chest pain Consent: Per the patient Procedure: The patient underwent pharmacologic (Regadenoson) evaluation with a peak heart rate of 96 beats per minute (70%predicted maximal heart rate) and a peak blood pressure of 142/72 mmHg. The baseline ECG demonstrated sinus bradycardia. The peak pharmacologic ECG demonstrated no obvious ECG changes. There was a rare PVC during recovery. There was no complaint of chest discomfort during pharmacologic infusion or recovery. The examination was discontinued secondary to completion of protocol. Impression: 1. Pharmacologic (Regadenoson) evaluation 2. Peak pharmacologic ECG with no obvious ECG changes. 3. There were no cardiac dysrhythmias pretest, during pharmacologic infusion, or recovery. 4. Nuclear images pending Myocardial perfusion imaging study: Technique: The patient was injected with 11.0 millicuries of technetium 99m Cardiolite and subsequently rest SPECT Cardiolite nuclear imaging was obtained in the horizontal long, vertical long, and short axis views. The patient underwent pharmacologic (Regadenoson) evaluation with a peak heart rate of 96 beats per minute (70% percent predicted maximal heart rate) and a peak blood pressure of 142/72 mmHg. The patient was injected with 35.0 millicuries of technetium 99m Cardiolite and subsequently stress SPECT Cardiolite nuclear imaging was obtained in the horizontal long, vertical long, and short axis views. A gated Cardiolite study at peak stress was obtained. Interpretation: Rest and stress SPECT Cardiolite nuclear imaging status post realignment, normalization, and attenuation correction demonstrate relative uniform tracer uptake and myocardial perfusion appearing within normal limits. There is end systolic thickening and brightening. The gated Cardiolite study demonstrates myocardial thickening and inward wall motion. The reported LVEF is 85%. Impression: 1. Rest and stress SPECT Cardiolite nuclear imaging demonstrate relative uniform tracer uptake and myocardial perfusion appearing within normal limits. 2. The gated Cardiolite study reports an LVEF of 85%. This note was generated with .[employer] software. It may contain incorrect words, spelling, and punctuation that were not noted in checking the note before signing.
--- NOTE | 2020-03-10 12:12 | DS.PCM_ITS ---
<Debra Lemos DISH WASHER - Last Filed: 03/10/20 12:17> Discharge Date and Diagnosis Date of Admission: 03/09/20 Date of Discharge: 03/10/20 - Primary Discharge Diagnosis Acute Problems: 1. Chest pain-ACS Ruled out. 2. BPH 3. Hypothyroidism - Secondary Discharge Diagnosis Chronic Problems: Chronic Problems (Last Reviewed 09/16/19 @ 10:[address] Justin Arrington MD) Anemia (Chronic) BPH (benign prostatic hyperplasia) (Chronic) GERD (gastroesophageal reflux disease) (Chronic) Malnutrition (Chronic) Hospital Course and Treatment Imaging Results: Diagnostic Data Chest X-Ray 03/09/20 14:05 IMPRESSION: Hyperinflation. The lungs are clear. Electronically Signed: Kurt Woodardchrissie, at 14:20 EST , Service support , Operations: None Procedures: Stress test Summary of Care Provided: The patient is a 84 year old M admitted 03/09/2020 due to chest pain. 1. Chest pain-troponin negative. EKG without ST-T changes. Patient underwent nuclear stress test which was negative for ischemia. LVEF 85%. Continue home aspirin regimen. Lipid profile mildly elevated. Recommend follow-up with PCP for further evaluation and management. Chest pain appears musculoskeletal in nature as it occurs with rest and patient reports recent wood splitting. 2. BPH-patient reports recent worsening of symptoms. PSA pending, follow with PCP. Initiated on Flomax. 3. Hypothyroidism-continue Synthroid regimen. General: Alert, Oriented x3, Cooperative HEENT: Atraumatic, PERRLA, EOMI, Normocephalic Neck: Supple, No JVD, Negative Carotid Bruits Lungs: Clear to auscultation, Normal air movement Cardiovascular: Regular rate, No murmurs Abdomen: Bowel Sounds Present, Soft, Non Tender Extremities: No clubbing, No cyanosis, No edema, Capillary Refill Less than 3 Seconds Skin: No rashes, No breakdown Musculoskeletal: No Tenderness to Palpation of Joints or Extremities Neurological: Cranial nerves II-XII grossly intact, Neuro grossly intact Psych/Mental Status: Normal Affect, Appropriate Patient seen and examined prior to discharge. Physical assessment as noted above. Patient is stable for discharge with follow up recommendations as noted above. This patient was seen by AUSTIN Walter under the supervision of Dr. Ramirez. - Physical Exam Vitals/I&O's: Vital Signs Temp Pulse Resp BP Pulse Ox 98.3 F 55 L 15 115/55 L 98 03/10/20 08:17 03/10/20 08:17 03/10/20 08:17 03/10/20 08:17 03/10/20 08:17 Oxygen Delivery Method Room Air Weight: 98 lb 5.219 oz Body Mass Index (BMI) 16.4 Intake and Output for Last 24 Hours 03/08/20 03/09/20 03/10/20 23:59 23:59 23:59 Intake Total 440 / 440 60 / 60 Balance 440 / 440 60 / 60 Microbiology Past 72 Hours 03/09/20 14:00 Mucosa - Nose SARS-CoV-2 Antigen (Rapid) - Final Laboratory Results 03/09/20 13:10: WBC 5.7, RBC 4.14 L, Hgb 13.1, Hct 40.9, MCV 98.8 H, MCH 31.6, MCHC 32.0, RDW Std Deviation 50.6 H, RDW Coeff of Cristopher 13.9, Plt Count 209, MPV 11.3, Immature Gran % (Auto) 0.200, Neut % (Auto) 70.8 H, Lymph % (Auto) 18.8 L, [place] % (Auto) 9.3, Eos % (Auto) 0.2, Baso % (Auto) 0.7, Absolute Neuts (auto) 4.0, Absolute Lymphs (auto) 1.07, Nucleated RBC % 0 03/09/20 13:10: Sodium 138, Potassium 3.7, Chloride 100, Carbon Dioxide 32.0, Anion Gap 6, BUN 16, Creatinine 0.99, Estim Creat Clear Calc 36.61, Est GFR (MDRD) Af Amer 93, Est GFR (MDRD) Non-Af 77, BUN/Creatinine Ratio 16.2, Glucose 195 H, Calcium 9.4, Troponin I < 0.015 03/09/20 13:10: TSH 5.34 H 03/09/20 18:08: Total PSA Pending 03/09/20 18:08: Troponin I < 0.015 03/09/20 21:01: Troponin I < 0.015 03/10/20 05:50: Triglycerides 84, Cholesterol 235 H, LDL Cholesterol 144 H, VLDL Cholesterol 17, HDL Cholesterol 74 Current Medications Aspirin (Aspirin 81 Mg Tab.Chew) 81 mg PO DAILY@0800 [facility] Last Admin: 03/10/20 05:50 Dose: 81 mg Documented by: Enoxaparin Sodium (Enoxaparin 40 Mg/0.4 Ml Syringe) 40 mg SC DAILY@0600 [facility] Last Admin: 03/10/20 05:50 Dose: Not Given Documented by: Levothyroxine Sodium (Levothyroxine 25 Mcg Tablet) 50 mcg PO DAILY@0600 [facility] Sodium Chloride (0.9% Saline Lock 10 Ml Syringe) 10 - 40 ml IV UD PRN PRN Reason: SALINE FLUSH Tamsulosin HCl (Tamsulosin Hcl 0.4 Mg Capsule) 0.4 mg PO DAILY@1730 [facility] Last Admin: 03/09/20 19:39 Dose: 0.4 mg Documented by: Discharge Diet: No Restrictions Discharge Activity: Return to Normal Activity Call your doctor if you observe: Shortness of breath, Dizziness, Fainting spells, Chest pain Home Medications: Medications to take at Discharge Multivit-Min/FA/Lycopen/Lutein [Centrum Silver Men Tablet] 1 tab PO DAILY 04/05/18 Aspirin [Aspirin, Baby] 81 mg PO DAILY@0800 03/09/20 Psyllium Husk [Metamucil] 0.4 gm PO DAILY 03/09/20 Levothyroxine [Synthroid] 50 mcg PO DAILY@0600 #60 tab 03/10/20 Tamsulosin HCl [Flomax] 0.4 mg PO DAILY@1730 #30 cap 03/10/20 Following Prescriptions Were Given to Patient: Tamsulosin HCl [Flomax] 0.4 mg PO DAILY@1730 #30 cap Transmission Status: Received by [facility]/pharmacy #[id number] Levothyroxine [Synthroid] 50 mcg PO DAILY@0600 #60 tab Transmission Status: Received by [facility]/pharmacy #[id number] Primary Care Physician: Margy Grimes MD [Primary Care Provider] - Please follow up with your Primary Care Physician in: 1 Week Disposition: Home Minutes spent on discharge:: 35 Patient Condition:: Stable Medical Necessity - Tobacco Use Smoking Status: Never smoker Meaningful Use Info Meaningful Use Diagnoses (Choose all that apply): None applicable <Gary Ramirez - Last Filed: 03/10/20 15:55> Discharge Date and Diagnosis - Secondary Discharge Diagnosis Chronic Problems: Chronic Problems (Last Reviewed 09/16/19 @ 10:[address] Justin Arrington MD) Anemia (Chronic) BPH (benign prostatic hyperplasia) (Chronic) GERD (gastroesophageal reflux disease) (Chronic) Malnutrition (Chronic) Hospital Course and Treatment Summary of Care Provided: This patient was seen in conjunction with Debra SALCEDO. I have independently interviewed and examined the patient and reviewed pertinent history, examination findings, laboratory and plan of management. I have reviewed the note and agree with the documented findings with the few additional points. In brief, patient is elderly 84-year gentleman with low BMI 16.4 kg/m? admitted with intermittent chest pain with palpitation and a severe shortness of breath for 1 week. Was admitted in PCU. Serial troponin enzymes negative. EKG no significant ST changes suggestive of ischemia. Patient had myocardial nuclear perfusion stress test which was negative for ischemia. Fasting profile shows LDL 144, TG 84, triglyceride 134. TSH 5.34. I think patient is getting chest pain may have underlying osteoporosis or musculoskeletal chest pain. Advised to follow with PCP for further evaluation of osteoporosis and will need DEXA scan. Other comorbidities as described above Discharge medication reconciliation done. Discharge follow-up instructions completed. Discharge process discussed with the patient and all questions were answered to patient's satisfaction. Levothyroxine dose increased to 50 mcg daily. Total time spent, exact 35 minutes on discharge meds reconciliation, examination, coordination of care with nurses and ancillary staff, review of imaging and blood test and discussion with the patient on follow-up instructions I have discussed my assessment with Debra SALCEDO and orders have been reviewed. Objective: Seen and examined. Patient heart rate and blood pressure is controlled. On radiation monitor sinus rhythm. Patient was admitted with intermittent chest pain on left side for 1 week unrelated to exertion along with shortness of breath and palpitation. Patient denies excessive musculoskeletal work including pushing or pulling. Denies acid reflux or heartburn or dyspepsia. Physical exam General: Alert, Oriented x3, Cooperative. Overall thin looking gentleman. BMI 16.4 HEENT: Atraumatic, PERRLA, EOMI, Normocephalic Oral: No Gingival or Mucosal Lesions/ Ulcerations Neck: Supple, No JVD, Negative Carotid Bruits Lungs: Air entry diminished in bilateral lung bases. No crepitation/rhonchi Cardiovascular: Regular rate, Regular Rhythm, Normal S1, Normal S2, holosystolic murmur over left lower sternal border and cardiac apex. Late peaking systolic murmur over left second ICS. Abdomen: Bowel Sounds Present, Soft, Non Tender, Non-Distended : No renal angle tenderness. No suprapubic tenderness. Extremities: No edema, Capillary Refill Less than 3 Seconds Skin: No rashes, No breakdown Musculoskeletal: No Tenderness to Palpation of Joints or Extremities. Mild to moderate muscle atrophy of extremities. Subcutaneous loss of fat. Neurological: Cranial nerves II-XII grossly intact, Deep Tendon Reflexes 2+/4 and Symmetrical, Neuro grossly intact Psych/Mental Status: Normal Affect, Appropriate. - Physical Exam Vitals/I&O's: Vital Signs Temp Pulse Resp BP Pulse Ox 98.6 F 59 L 15 123/66 H 97 03/10/20 13:33 03/10/20 13:33 03/10/20 13:33 03/10/20 13:33 03/10/20 13:33 Oxygen Delivery Method Room Air Weight: 98 lb 5.219 oz Body Mass Index (BMI) 16.4 Intake and Output for Last 24 Hours 03/08/20 03/09/20 03/10/20 23:59 23:59 23:59 Intake Total 440 / 440 540 / 540 Balance 440 / 440 540 / 540 Microbiology Past 72 Hours 03/09/20 14:00 Mucosa - Nose SARS-CoV-2 Antigen (Rapid) - Final Laboratory Results 03/09/20 13:10: TSH 5.34 H 03/09/20 18:08: Total PSA Pending 03/09/20 18:08: Troponin I < 0.015 03/09/20 21:01: Troponin I < 0.015 03/10/20 05:50: Triglycerides 84, Cholesterol 235 H, LDL Cholesterol 144 H, VLDL Cholesterol 17, HDL Cholesterol 74 03/10/20 05:50: Free T4 1.04 OBSV E&M: [id number] Initial observation care L3
[2020-03-10 12:45] VITALS: PULSE 64
[2020-03-10 13:33] VITALS: BP 123/66; PULSE 59; RESP 15; TEMP 37; O2SAT 97
[2020-03-10 14:05] LABS: T4 Free Direct 1.04 ng/dL (0.76-1.46)
[2020-03-12 19:26] LABS: PSA, Total 2.1 ng/mL (0.0-4.0)
== END 2020-03-10 11:59 | disposition home or self-care (01) ==
LOC: ED 14:54 → PCU 16:36
PROVIDERS: Nurse Practitioner Family; Admitting Provider Internal Medicine; Emergency Provider Emergency Medicine; PCP Family Medicine; Visit Provider Internal Medicine
DX: R07.89 Other chest pain (principal); E03.9 Hypothyroidism, unspecified; N40.1 Benign prostatic hyperplasia with lower urinary tract symptoms; Z79.899 Other long term (current) drug therapy; Z79.82 Long term (current) use of aspirin; R06.02 Shortness of breath; I48.91 Unspecified atrial fibrillation; K21.9 Gastro-esophageal reflux disease without esophagitis; E46 Unspecified protein-calorie malnutrition; M19.90 Unspecified osteoarthritis, unspecified site; Z68.1 Body mass index [BMI] 19.9 or less, adult; R35.0 Frequency of micturition
CPT/HCPCS: 36415; 71045; 78452; 80048; 80061; 84153; 84439; 84443; 84484; 85025; 87426; 93005; 93017; 97802; 99218; 99285; A9500; A4216; G0378; J2785

== ENCOUNTER → 2020-08-28 13:57 | Outpatient (CLI) | payer MEDICARE, SELFPAY ==
[2020-03-09 17:40] VITALS: BMI 16.4
[2020-08-28 14:46] LABS: Absolute Neutrophil Count 3.7 X10^3/uL (2.0-7.7); Basophil# 0.03 X10^3/uL; Basophil% 0.6 % (0-1); Eosinophil# 0.02 X10^3/uL; Eosinophils% 0.4 % (0-5); Hematocrit 39.4 % (40-54); Hemoglobin 12.6 g/dL (13.0-16.5); Lymphocyte % 20.7 % (19-41); Mean Corpuscular Hgb 31.2 pg (27.0-32.0); Mean Corpuscular Volume 97.5 fL (80-94); Mean Platelet Vol. 11.1 fl (6.2-12.0); Monocyte# 0.42 X10^3/uL; Monocyte% 7.9 % (0-10); NRBC Flagged by Analyzer 0 % (0-5); Neutrophil # 3.72 X10^3/uL (2.7-7.7); Platelet Count 203 K/mm3 (150-450); RBC Distribution Width SD 51.4 fl (35.1-43.9); Red Blood Count 4.04 M/mm3 (4.6-6.2); White Blood Count 5.3 K/mm3 (4.4-11.0)
[2020-08-28 15:18] LABS: T3 Total - Triiodothyronine 1.03 ng/mL (0.6-1.81)
[2020-08-28 15:25] LABS: ALB/GLOB Ratio 0.9 RATIO (0.9-2.4); AST(SGOT) 23 U/L (15-37); Alanine Aminotransfer ALT/SGPT 28 U/L (16-61); Albumin, Serum 3.4 g/dL (3.2-5.0); Alkaline Phosphatase 73 U/L (45-117); Anion Gap 4 (5-15); BUN 16 mg/dL (7-18); BUN/Creat Ratio 14.2 RATIO (10-20); Calcium,Total 8.7 mg/dL (8.5-10.1); Chloride 107 mmol/L (98-107); Cholesterol 264 mg/dL (200); Creatinine, Serum 1.13 mg/dL (0.70-1.30); EST Glomerular Filtration Rate 66 mL/min (>60); Est Glom Filt Rate - Afr Amer 79 mL/min (>60); Globulin 3.7 g/dL (2.2-4.2); Glucose 217 mg/dL (74-106); High Density Lipoprotein 87 mg/dL; Potassium 3.9 mmol/L (3.5-5.1); Protein, Total 7.1 g/dL (6.4-8.2); Sodium Level 141 mmol/L (136-145); T4 Total, Thyroxin 6.6 ug/dL (4.5-12.1); Thyroid Stim Hormone (TSH) 7.16 uIU/mL (0.358-3.74); Triglycerides 128 mg/dL; Very Low Density Lipoprotein 26 mg/dL (5-40)
== END ==
PROVIDERS: PCP Family Medicine; Referring Provider Family Medicine; Visit Provider Family Medicine
DX: E03.9 Hypothyroidism, unspecified (principal); I25.10 Atherosclerotic heart disease of native coronary artery without angina pectoris; R63.4 Abnormal weight loss; R53.83 Other fatigue; R53.1 Weakness
CPT/HCPCS: 36415; 80053; 80061; 84436; 84443; 84480; 85025

== ENCOUNTER 2021-03-07 09:07 | Day surgery (SDC) | payer MEDICARE, SELFPAY ==
--- NOTE | 2021-03-07 | EGD_PTH ---
PATIENT: XAVI FINN LOC: EN U#:[id number] AGE/SX: 85/M ROOM: RE03/07/[address]: Dr. Mario Olivares DO : 1935 BED: DIS: 03/07/2021 SPEC #: [id number] RECD: 03/07/21 12:28 STATUS: STEPHEN MARILEE #: [id number] YOUSUF: 03/07/21 00:[address]: Mario Olivares DEPT: SURGICAL PATHOLOGY RECD BY: Segundo Sneed ENTERED: 03/07/21 12:29 SP TYPE: EGD BIOPSY OT DR: No Primary Care Phys Tissues: A - Duodenum, NOS B - Gastric mucous membrane C - Esophageal mucous membrane Procedures: Special Stain Group II Surgery Specimen Level IV Alcian Blue/PAS (control) HEADER OPERATION: EGD PRE-OP DIAGNOSIS: Constipation, GERD, dysphagia TISSUE SUBMITTED: A ? Duodenum biopsy, rule out celiac, B ? Antrum biopsy for histo and H. pylori, C ? Distal esophagus biopsy MICROSCOPIC DIAGNOSIS A. Duodenum, biopsy: Fragments of duodenal mucosa, no pathologic diagnosis. B. Antrum, biopsy: Mild gastritis. See microscopic description and comment. C. Distal esophagus, biopsy: Fragments of gastric mucosa with mild chronic inflammation. Intestinal metaplasia (goblet cell metaplasia) is not identified. See comment. SJ:rg 03/08/2021 COMMENT B. The results of immunohistochemistry for Helicobacter pylori will be reported separately ([id number]). C. Alcian blue/PAS stain with matched control is used in the evaluation of the specimen. MICROSCOPIC DESCRIPTION Slides are reviewed. B. The specimen shows fragments of gastric mucosa with chronic inflammatory cell infiltrates in the lamina propria consisting of lymphocytes and plasma cells, consistent with mild chronic gastritis. GROSS DESCRIPTION A - Received in fixative is one container labeled with the patient's name and designated duodenum biopsy. The specimen consists of multiple irregular fragments of light grady soft tissue that in aggregate measure 0.5 x 0.5 x 0.1 cm. The specimen is totally submitted in one cassette. B - Received in fixative is one container labeled with the patient's name and designated antrum biopsy. The specimen consists of two irregular fragments of light grady soft tissue that in aggregate measure 0.5 x 0.3 x 0.1 cm. The specimen is totally submitted in one cassette. C - Received in fixative is one container labeled with the patient's name and designated distal esophagus biopsy. The specimen consists of two irregular fragments of light grady soft tissue that in aggregate measure 0.5 x 0.3 x 0.1 cm. The specimen is totally submitted in one cassette. / SJ:rg 03/07/21 TC:3 CPT: 15536 x3, [id number]
[2021-03-07 09:33] VITALS: BP 145/74; PULSE 57; RESP 16; TEMP 36.3; O2SAT 99; BMI 16.5
[2021-03-07] MEDS: Lactated Ringers 1,000 ML 15 ML IV (09:39)
--- NOTE | 2021-03-07 10:08 | HP.PCM_ITS ---
History and Physical Date of Admission: 03/07/21 Details: XAVI FINN, is a 85 M who presents to the office today for the evaluation of abdominal pain, dysphagia and constipation. Patient said this has been going on for multiple years and he has not received any advice or treatment regarding his problems. Patient says despite what he takes he has abdominal pain followed by cramping and incomplete evacuation of bowel movements. He denies any chest pain or shortness of breath. He has no history of cardiomyopathy. His last echo did show an EF of 85% consistent with hypercontractility without any ischemia. His weight has been stable. He says that he gets a sensation of esophageal dysphagia and hoarseness followed by coughing and a knot in the top of his throat. He also says that he has difficult swallowing pills and vitamins. HE is having difficulty with midepigastric pain feels like something is in there moving, difficulty swallowing, sometimes when his talking he has to stop and cough, abdominal cramps I have to get up in the middle of the night and have to stand, constipation with straining he has a small amount that is hard every day. In the past he has tried Miralax and other OTC medications without effect. Last colonoscopy and EGD 09/19/19. Performed by Dr. Arrington with findings of: EGD ? gastritis. Colonoscopy ? diverticulosis in sigmoid colon and descending colon. Antrum biopsy ? mild gastritis. H Pylori negative. ROS Const Constitutional: Positive for fatigue Eyes Eyes: Positive for blurry vision ENT ENT: Positive for hearing loss and difficulty swallowing Gastro GI: Positive for abdominal pain, constipation and difficulty swallowing Genitourinary Male: Positive for urinary frequency and urinary urgency Musc Musculoskeletal: Positive for back pain, muscle cramps and restless legs Neuro Neurology: Positive for restless legs Endo Endocrine: Positive for cold intolerance, fatigue, increased thirst/drinking, increased hunger and increased urine leakage Edmundo/Lymp Hematologic/Lymphatic: Positive for easy bruising Exam Const General: cooperative and comfortable Nutritional Appearance: average body habitus and well nourished [facility] Head: normal to inspection Ears: hearing grossly normal bilaterally Nose: external nose normal Face and sinus: normal facial exam Mouth: oral mucosae normal Throat: posterior oropharynx normal Eyes General: appearance normal, both eyes and all related structures Neck Neck: normal visual inspection Chest Chest palpation & inspection: normal inspection of the chest and normal palpation of entire chest wall Resp Effort & Inspection: normal respiratory effort Auscultation: Bilateral: Clear to Auscultation Cardio Palpation: normal PMI Rate: regular rate Rhythm: regular rhythm GI Inspection: normal to inspection Auscultation: normal bowel sounds Percussion: normal to percussion Palpation: no hepatosplenomegaly Skin General: no rashes or lesions noted Neuro General: patient alert Extrem General: normal to inspection Psych Affect: normal affect Quality Reporting Tobacco Screening ([facility] 138) Smoking Status: Never smoker Assessment and Plan Assessment and Plan (1) Constipation: Status: Acute Qualifiers: Constipation type: unspecified constipation type Qualified Code(s): K59.00 - Constipation, unspecified Plan - Dr. Martin Friend, DO: I reviewed his CT scan in the office and he does have severe constipation. He did have a normal colonoscopy last year which shows significant diverticular disease which is likely result of his constipation. He says that he tried Metamucil but he did not like the sugar content and thought it was associated with dementia. He does not drink any coffee because he thought it would make his reflux disease worse. He had tried MiraLAX in the past but he did not like the sugar content. He had talked about possibly starting a stool softener but is unsure today wants to be on the medicine on a chronic basis. With this in mind we recommended mineral oil, orange juice and prune juice. He will take this on a daily basis with the only possible problem being diarrhea. (2) Dysphagia: Status: Acute Plan - Dr. Martin Friend, DO: Evaluate his upper GI tract and possibly perform dilation. The different diagnosis could be esophageal diverticulum, erosive esophagitis with an esophageal stricture or esophageal ring and eosinophilic esophagitis. (3) GERD (gastroesophageal reflux disease): Status: Chronic Qualifiers: Esophagitis presence: esophagitis presence not specified Qualified Code(s): K21.9 - Gastro-esophageal reflux disease without esophagitis Plan - Dr. Martin Friend, DO: We will evaluate his upper GI tract for Schaefer's esophagus and we will possibly put him on baking soda as a natural buffer as I know he does not want to take any medicines. I have re-examined the patient. There are no clinical changes since date of exam.
--- NOTE | 2021-03-07 10:15 | IMM_PTH ---
PATIENT: XAVI FINN LOC: EN U#:[id number] AGE/SX: 85/M ROOM: RE03/07/[address]: Dr. Mario Olivares DO : 1935 BED: DIS: 03/07/2021 SPEC #: [id number] RECD: 03/07/21 13:12 STATUS: STEPHEN RERegina #: [id number] YOUSUF: 03/07/21 10:[address]: Mario Olivares DEPT: IMMUNOHISTOCHEMISTRY RECD BY: Denisse Michael ENTERED: 03/07/21 13:13 SP TYPE: IMMUNO OT DR: No Primary Care Phys Tissues: B - Stomach, NOS Procedures: H Pylori (initial) PHYSICIAN & INSTITUTION [place] [id number] SPECIMEN INFORMATION: Tissue Source: B ? Antrum biopsy Clinical Info: Constipation, GERD, dysphagia Specimen Number: [id number] CPT code: 37718 METHODOLOGY: Deparaffinized sections of prefer/formalin-fixed tissue or PAP/DQ stained slides are incubated with monoclonal/polyclonal antibodies/oligonucleotide probes. Localization is made via biotin free immunoperoxidase method. Appropriate controls are performed and reacted as expected. Results on target cell population are indicated in the following table: RESULTS: ANTIBODY / CLONE RESULT Block B H Pylori (polyclonal) negative These tests were developed and their performance characteristics determined by [facility]. They may not have been cleared or approved by the U.S. Food and Drug Administration. The FDA has determined that such clearance or approval is not necessary. INTERPRETATION: B. Antrum biopsy: Negative for Helicobacter pylori organisms. SJ:mason 03/08/2021
[2021-03-07 10:34] VITALS: BP 135/69; PULSE 67; RESP 18; TEMP 35.5; O2SAT 100
[2021-03-07 10:35] VITALS: BP 139/73; BP 145/74; PULSE 81; RESP 20; O2SAT 97
--- NOTE | 2021-03-07 10:38 | OP.EGD_ITS ---
Patient Name: Nii Siu Procedure Date: 03/07/2021 10:02 AM Date of : 1935 Age: 85 Procedure: Upper GI endoscopy Indications: Epigastric abdominal pain, Dysphagia Providers: Mario Olivares DO Medicines: See the Anesthesia note for documentation of the administered medications Patient Profile: This is an 85 year old male. Refer to note in patient chart for documentation of history and physical. Patient has symptoms of chronic abdominal cramping, chronic dysphagia and dysphagia with both liquids and solids. Complications: No immediate complications. Procedure: Pre-Anesthesia Assessment: - Prior to the procedure, a History and Physical was performed, and patient medications and allergies were reviewed. The risks and benefits of the procedure and the sedation options and risks were discussed with the patient. All questions were answered and informed consent was obtained. Patient identification and proposed procedure were verified by the physician in the pre-procedure area. Mental Status Examination: alert and oriented. Airway Examination: normal oropharyngeal airway and neck mobility. Respiratory Examination: clear to auscultation. CV Examination: normal. Prophylactic Antibiotics: The patient does not require prophylactic antibiotics. Prior Anticoagulants: The patient has taken no previous anticoagulant or antiplatelet agents. ASA Grade Assessment: II - A patient with mild systemic disease. After reviewing the risks and benefits, the patient was deemed in satisfactory condition to undergo the procedure. The anesthesia plan was to use moderate sedation / analgesia (conscious sedation). Immediately prior to administration of medications, the patient was re-assessed for adequacy to receive sedatives. The heart rate, respiratory rate, oxygen saturations, blood pressure, adequacy of pulmonary ventilation, and response to care were monitored throughout the procedure. The physical status of the patient was re-assessed after the procedure. After obtaining informed consent, the endoscope was passed under direct vision. Throughout the procedure, the patient's blood pressure, pulse, and oxygen saturations were monitored continuously. The Endoscope was introduced through the mouth, and advanced to the second part of duodenum. The upper GI endoscopy was accomplished without difficulty. The patient tolerated the procedure well. Moderate Sedation: Moderate (conscious) sedation was administered by the endoscopy nurse and supervised by the endoscopist. The patient's oxygen saturation, heart rate, blood pressure and response to care were monitored. Total physician intraservice time was 15 minutes. Moderate (conscious) sedation was administered by the endoscopy nurse and supervised by the endoscopist. The patient's oxygen saturation, heart rate, blood pressure and response to care were monitored. Total physician intraservice time was 15 minutes. Scope In: Scope Out: 10:28:17 AM Findings: Abnormal motility was noted in the proximal esophagus. The cricopharyngeus was abnormal. There is spasticity and primary peristalsis of the esophageal body. The distal esophagus/lower esophageal sphincter is spastic, but gives up passage to the endoscope. Tertiary peristaltic waves are noted. A low-grade of narrowing Schatzki ring was found in the upper third of the esophagus. A guidewire was placed and the scope was withdrawn. Dilation was performed with a Savary dilator with no resistance at 54 Fr. The dilation site was examined following endoscope reinsertion and showed moderate improvement in luminal narrowing. Estimated blood loss was minimal. LA Grade A (one or more mucosal breaks less than 5 mm, not extending between tops of 2 mucosal folds) esophagitis with no bleeding was found 34 to 35 cm from the incisors. Biopsies were taken with a cold forceps for histology. Verification of patient identification for the specimen was done. Estimated blood loss was minimal. Patchy mildly erythematous mucosa without bleeding was found in the gastric antrum. This was biopsied with a cold forceps for histology. Estimated blood loss was minimal. Patchy mildly erythematous mucosa without bleeding was found in the gastric antrum. Biopsies were taken with a cold forceps for Helicobacter pylori testing. Scattered mild inflammation characterized by congestion (edema) was found in the second portion of the duodenum. Biopsies were taken with a cold forceps for histology. Verification of patient identification for the specimen was done. Estimated blood loss was minimal. A healed gastric ulcer in the gastric antrum was also seen. Impression: - Abnormal esophageal motility, suspicious for achalasia. - Low-grade of narrowing Schatzki ring. Dilated. - LA Grade A reflux esophagitis. Biopsied. - Erythematous mucosa in the antrum. Biopsied. - Erythematous mucosa in the antrum. Biopsied. - Duodenitis. Biopsied. Recommendation: - Discharge patient to home. - Full liquid diet today. - Continue present medications. - Await pathology results. - Repeat upper endoscopy in 1 year for surveillance based on pathology results. - Return to GI office in 2 weeks. Procedure Code(s): --- Professional --- 01224, Esophagogastroduodenoscopy, flexible, transoral; with insertion of guide wire followed by passage of dilator(s) through esophagus over guide wire 34827, 59, Esophagogastroduodenoscopy, flexible, transoral; with biopsy, single or multiple G0500, Moderate sedation services provided by the same physician or other qualified health hospice spiritual care coordinator performing a gastrointestinal endoscopic service that sedation supports, requiring the presence of an independent trained observer to assist in the monitoring of the patient's level of consciousness and physiological status; initial 15 minutes of intra-service time; patient age 5 years or older (additional time may be reported with 97942, as appropriate) G0500, Moderate sedation services provided by the same physician or other qualified health hospice spiritual care coordinator performing a gastrointestinal endoscopic service that sedation supports, requiring the presence of an independent trained observer to assist in the monitoring of the patient's level of consciousness and physiological status; initial 15 minutes of intra-service time; patient age 5 years or older (additional time may be reported with 18166, as appropriate) CPT copyright 2017 [employer]. All rights reserved. The codes documented in this report are preliminary and upon deckhand crab boat review may be revised to meet current compliance requirements. Mario Olivares DO 03/07/2021 10:38:17 AM This report has been signed electronically. Number of Addenda: 1 Note Initiated On: 03/07/2021 10:02 AM Addendum Number: 1 Addendum Date: 12/11/2021 7:00:13 AM MAC was used instead of moderate sedation for the patient. Mario Olivares DO 12/11/2021 7:00:17 AM This report has been signed electronically.
[2021-03-07 10:40] VITALS: BP 134/85; BP 145/74; PULSE 76; RESP 20; O2SAT 100
[2021-03-07 10:46] VITALS: BP 134/76; BP 145/74; PULSE 76; RESP 18; TEMP 36.1; O2SAT 100
[2021-03-07 11:23] VITALS: BP 145/74
== END 2021-03-07 11:33 | disposition home or self-care (01) ==
LOC: EN 09:12 → AC 09:13
PROVIDERS: Visit Provider Internal Medicine Gastroenterology
PROC: (CPT 43239; principal; 2021-03-07 10:10)
DX: K22.2 Esophageal obstruction (principal); K29.80 Duodenitis without bleeding; K29.70 Gastritis, unspecified, without bleeding; R13.10 Dysphagia, unspecified; K21.00 Gastro-esophageal reflux disease with esophagitis, without bleeding; K59.00 Constipation, unspecified; M19.90 Unspecified osteoarthritis, unspecified site; Z79.82 Long term (current) use of aspirin
CPT/HCPCS: 43239; 43248; 88305; 88313; 88342; J7120; J2405

== ENCOUNTER → 2021-03-14 10:35 | Outpatient (CLI) | payer MEDICARE, SELFPAY ==
[2021-03-15 18:08] LABS: Endomysial Antibody IgA Negative (Negative)
[2021-03-16 12:49] LABS: Deamidated Gliadin IgA 4 units (0-19); Deamidated Gliadin IgG 3 units (0-19); Immunoglobulin A 234 mg/dL (61-437); t-Transglutaminase IgA <2 U/mL (0-3)
[2021-03-20 09:43] LABS: H. PYLORI STOOL AG Negative (Negative)
== END ==
PROVIDERS: Referring Provider Internal Medicine Gastroenterology; Visit Provider Internal Medicine Gastroenterology
DX: K29.60 Other gastritis without bleeding (principal)
CPT/HCPCS: 36415; 82784; 83516; 86255

== ENCOUNTER → 2021-03-15 09:44 | Outpatient (CLI) | payer MEDICARE, SELFPAY | PROVIDERS: Referring Provider Internal Medicine Gastroenterology; Visit Provider Internal Medicine Gastroenterology | DX: Z00.00 Encounter for general adult medical examination without abnormal findings (principal) ==

== ENCOUNTER 2021-06-04 12:34 | Outpatient (CLI) | payer MEDICARE, SELFPAY ==
[2021-06-04 12:42] LABS: Mucous, Urine 0 SEEN /hpf (<or=2+); Red Blood Cells-Urine 0 SEEN /hpf (0-5); Squamous Epithelial Cells - UA 0 SEEN /hpf (0-5); White Blood Cells 0 SEEN /hpf (0-5)
--- NOTE | 2021-06-04 12:54 | RAD_ITS ---
STUDY: X-RAY - ABDOMEN/PELVIS REASON FOR EXAM: Male, 85 years old. shortness of breath TECHNIQUE: AP supine and upright views of the abdomen and pelvis. COMPARISON: None. FINDINGS: Normal visualized lung bases. There is an unremarkable bowel gas pattern. There is no demonstrated free abdominal air. The visualized liver, spleen and kidneys are grossly normal in size and morphology. Normal soft tissue structures. Normal visualized osseous structures. RAD/Abd Inc Decub and/or Erect IMPRESSION: Normal x-ray examination of the abdomen and pelvis. Electronically Signed: Carlos Pagan MD at 16:52 EST ,
--- NOTE | 2021-06-04 13:14 | RAD_ITS ---
STUDY: X-RAY CHEST REASON FOR EXAM: Male, 85 years old. gerd pain TECHNIQUE: PA and lateral views of the chest. COMPARISON: 03/09/2020 FINDINGS: The lungs are clear and expanded. There is no demonstrated pleural abnormality. Normal size heart. Normal mediastinum and jens. Normal visualized pulmonary arteries. Normal visualized aortic arch and descending thoracic aorta. Normal visualized thoracic spine. Normal visualized ribs, clavicles, and shoulders. There is no demonstrated abnormality of the visualized soft tissue structures of the upper abdomen. RAD/Chest PA and Lateral IMPRESSION: Normal x-ray examination of the chest. Electronically Signed: Carlos Pagan MD at 16:49 EST ,
[2021-06-04 13:44] LABS: Color, Urine Yellow (Yellow); Glucose, Dipstick Normal (Normal); Ketone-Dipstick Negative (Negative); Leukocyte Esterase-Dipstick Negative /ul (Negative); Nitrite-Dipstick Negative (Negative); Occult Blood-Urine Negative /ul (Negative); Protein-Dipstick 15 mg/dl (Negative); Specific Gravity, Urine 1.015 (1.002-1.030); Urine Bilirubin Dipstick Negative (Negative); Urine Clarity Sl. Cloudy (Clear); Urine Urobilinogen Normal (Normal)
[2021-06-04 13:52] LABS: Amorphous Sediment 1+; Bacteria 2+ /hpf (None Seen)
[2021-06-06 18:48] LABS: PSA, Free 1.15 ng/mL; PSA, Free % 39.7 % (.); PSA, Total Ultrasensitive 2.9 ng/mL (0.0-4.0)
== END 2021-06-04 23:59 | disposition home or self-care (01) ==
LOC: LAB 12:36
PROVIDERS: Referring Provider Internal Medicine Gastroenterology; Visit Provider Internal Medicine Gastroenterology
DX: N40.0 Benign prostatic hyperplasia without lower urinary tract symptoms (principal); D64.9 Anemia, unspecified; R06.02 Shortness of breath; K21.9 Gastro-esophageal reflux disease without esophagitis; R52 Pain, unspecified
CPT/HCPCS: 36415; 71046; 74019; 81001; 84153; 84154

== ENCOUNTER → 2021-06-13 08:26 | Day surgery (SDC) | payer MEDICARE, SELFPAY ==
[2021-06-13 13:18] VITALS: BP 162/74; PULSE 61; RESP 16; TEMP 36.9; O2SAT 99
[2021-06-13] MEDS: Lidocaine Jelly 2% 20 ML Syringe (URO-JET) 1 APPLIC (13:25)
== END ==
LOC: EN 08:27 → AC 08:30 → EN 08:57
PROVIDERS: Visit Provider Internal Medicine Gastroenterology
PROC: F00ZJWZ Instrumental Swallowing and Oral Function Assessment using Swallowing Equipment (ICD-10-PCS; CPT 43235; principal; 2021-06-13 08:25)
DX: K22.2 Esophageal obstruction (principal)
CPT/HCPCS: 91010

== ENCOUNTER → 2021-09-04 | Outpatient (CLI) | payer MEDICARE, SELFPAY ==
[2021-09-04 12:22] LABS: Absolute Lymphocyte Count 0.84 X10^3/uL (0.83-4.51); Absolute Neutrophil Count 2.1 X10^3/uL (2.0-7.7); Basophil# 0.03 X10^3/uL; Basophil% 0.9 % (0-1); Eosinophil# 0.01 X10^3/uL; Eosinophils% 0.3 % (0-5); Hematocrit 40.3 % (40-54); Hemoglobin 13.1 g/dL (13.0-16.5); Lymphocyte # 0.84 X10^3/ul (0.83-4.51); Lymphocyte % 25.9 % (19-41); Mean Corp Hgb Conc 32.5 g/dL (32-36); Mean Corpuscular Hgb 31.3 pg (27.0-32.0); Mean Corpuscular Volume 96.4 fL (80-94); Mean Platelet Vol. 11.7 fl (6.2-12.0); Monocyte# 0.29 X10^3/uL; NRBC Flagged by Analyzer 0 % (0-5); Neutrophil # 2.06 X10^3/uL (2.7-7.7); Neutrophil % 63.6 % (47-70); Platelet Count 183 K/mm3 (150-450); RBC Distribution Width CV 14.4 % (11.6-14.6); RBC Distribution Width SD 51.7 fl (35.1-43.9); Red Blood Count 4.18 M/mm3 (4.6-6.2); White Blood Count 3.2 K/mm3 (4.4-11.0)
[2021-09-04 12:50] LABS: Hemoglobin A1c 5.8 % (3.8-5.6)
[2021-09-04 13:04] LABS: ALB/GLOB Ratio 0.9 RATIO (0.9-2.4); AST(SGOT) 16 U/L (15-37); Alanine Aminotransfer ALT/SGPT 25 U/L (16-61); Albumin, Serum 3.5 g/dL (3.2-5.0); Alkaline Phosphatase 69 U/L (45-117); Anion Gap 4 (5-15); BUN 19 mg/dL (7-18); BUN/Creat Ratio 19.2 RATIO (10-20); Calcium,Total 9.4 mg/dL (8.5-10.1); Chloride 105 mmol/L (98-107); Creatinine, Serum 0.99 mg/dL (0.70-1.30); EST Glomerular Filtration Rate 76 mL/min (>60); Est Glom Filt Rate - Afr Amer 92 mL/min (>60); Globulin 3.8 g/dL (2.2-4.2); Glucose 122 mg/dL (74-106); Magnesium 2.3 mg/dL (1.6-2.6); Potassium 4.5 mmol/L (3.5-5.1); Protein, Total 7.3 g/dL (6.4-8.2); Sodium Level 141 mmol/L (136-145); T4 Free Direct 0.78 ng/dL (0.76-1.46); Thyroid Stim Hormone (TSH) 8.62 uIU/mL (0.358-3.74)
== END | disposition home or self-care (01) ==
LOC: BIMLAB 10:54
PROVIDERS: Referring Provider Internal Medicine; Visit Provider Internal Medicine
DX: D64.9 Anemia, unspecified (principal); E44.0 Moderate protein-calorie malnutrition; E03.8 Other specified hypothyroidism; R73.9 Hyperglycemia, unspecified
CPT/HCPCS: 36415; 80053; 83036; 83735; 84439; 84443; 85025

== ENCOUNTER → 2022-05-15 | Outpatient (CLI) | payer MEDICARE, SELFPAY ==
[2022-05-15 15:18] LABS: Absolute Lymphocyte Count 1.37 X10^3/uL (0.83-4.51); Absolute Neutrophil Count 2.8 X10^3/uL (2.0-7.7); Basophil# 0.03 X10^3/uL; Basophil% 0.6 % (0-1); Eosinophil# 0.03 X10^3/uL; Eosinophils% 0.6 % (0-5); Hematocrit 41.6 % (40-54); Hemoglobin 13.2 g/dL (13.0-16.5); Lymphocyte # 1.37 X10^3/ul (0.83-4.51); Lymphocyte % 29.5 % (19-41); Mean Corp Hgb Conc 31.7 g/dL (32-36); Mean Corpuscular Hgb 31.4 pg (27.0-32.0); Mean Platelet Vol. 11.7 fl (6.2-12.0); Monocyte# 0.44 X10^3/uL; Monocyte% 9.5 % (0-10); NRBC Flagged by Analyzer 0 % (0-5); Neutrophil # 2.77 X10^3/uL (2.7-7.7); Neutrophil % 59.6 % (47-70); Platelet Count 181 K/mm3 (150-450); RBC Distribution Width CV 14.4 % (11.6-14.6); RBC Distribution Width SD 52.4 fl (35.1-43.9); White Blood Count 4.7 K/mm3 (4.4-11.0)
[2022-05-15 15:59] LABS: ALB/GLOB Ratio 0.9 RATIO (0.9-2.4); AST(SGOT) 15 U/L (15-37); Alanine Aminotransfer ALT/SGPT 22 U/L (16-61); Albumin, Serum 3.5 g/dL (3.2-5.0); Alkaline Phosphatase 72 U/L (45-117); Anion Gap 6 (5-15); BUN 19 mg/dL (7-18); BUN/Creat Ratio 20.5 RATIO (10-20); Calcium,Total 9.1 mg/dL (8.5-10.1); Chloride 103 mmol/L (98-107); Creatinine, Serum 0.93 mg/dL (0.70-1.30); EST Glomerular Filtration Rate 82 mL/min (>60); Est Glom Filt Rate - Afr Amer 99 mL/min (>60); Globulin 3.7 g/dL (2.2-4.2); Glucose 120 mg/dL (74-106); PSA,Total - Annual Screen 2.01 ng/mL (0.00-4.00); Potassium 4.1 mmol/L (3.5-5.1); Protein, Total 7.2 g/dL (6.4-8.2); Sodium Level 142 mmol/L (136-145); T4 Free Direct 0.79 ng/dL (0.76-1.46); Thyroid Stim Hormone (TSH) 6.27 uIU/mL (0.358-3.74)
== END | disposition home or self-care (01) ==
LOC: BIMLAB 14:25
PROVIDERS: PCP Internal Medicine; Referring Provider Internal Medicine; Visit Provider Internal Medicine
DX: R73.03 Prediabetes (principal); R53.83 Other fatigue; N40.0 Benign prostatic hyperplasia without lower urinary tract symptoms; E03.8 Other specified hypothyroidism; Z12.5 Encounter for screening for malignant neoplasm of prostate
CPT/HCPCS: 36415; 80053; 84153; 84439; 84443; 85025; G0103

== ENCOUNTER → 2022-06-09 | Outpatient (CLI) | payer MEDICARE, SELFPAY ==
--- NOTE | 2022-06-09 14:34 | ST.MBS ---
Modified Barium Swallow - Patient Information Study Date: 06/09/22 Study Time: 13:00 Direct Billable Minutes: 95 Total Minutes procedure & reportin Diagnosis: GERD (K21.9), Dysphagia (R13.10) Referring Physician: Santino Morillo Reason for Referral: Objectively assess swallow function, assess risk for aspiration, and determine recommendations for least restrictive diet textures and compensatory strategies to improve safety of swallow. Medical History: Patient is a 86-year-old male with PMH including abdominal pain, cough, dysphagia, hx of IBS, hoarseness, shortness of breath, weight loss (SEE EMR for full PMH). Pt referred for MBSS from PCP, Dr. Morillo, to address chronic history of dysphagia. He was seen GI and was referred to speech therapy in the past, but he did not follow through.? He still reports concerns with swallowing to PCP, feeling like foods get stuck. He was last seen by GI in August of 2021. For follow up for lymphocytic gastritis, GERD, and constipation. He had EGD performed 03/07/21 revealing abnormal esophageal motility suspicious for achalasia, low grade narrowing of Schatzki ring ? dilated, LA Grade A reflux esophagitis, erythematous mucosa in antrum, duodenitis w/ biopsy - antrum, lymphocytic gastritis, and distal esophagus inflammation. Per patient report at [facility]SS, he denied recent history of GERD, but stated that he did have GERD ~40-50 years ago. He reports coughing spells at home both with and without food, as well as coughing spells at night when he lies down. He denies regurgitation of food/drink. Patient?s primary concerns were sensation of something stuck in his throat and intermittent ?tightening of his voice? that inhibits his ability to speak which he reports occurs with prolonged speaking. He denies difficulty breathing with reported sensation of throat tightening. Current Diet Ordered: Regular textures / Thin liquids Dentition: Edentulous - upper dentures at home, Missing Teeth - missing majority of teeth from lower dentition Mental Status: WNL - Able to reliably follow commands to complete evaluation Respiratory Status: Oxygenating on Room Air - Penetration-Aspiration Scale Penetration-Aspiration Scale: OBJECTIVE ASSESSMENT OF SWALLOW FUNCTION (QUANTITATIVE ? PER TRIAL): PENETRATION / ASPIRATION SCALE (CHAN): 1 = does not enter airway 2 = enters airway/above vocal folds/ejected 3 = enters airway/above vocal folds/not ejected 4 = enters airway/contacts vocal folds/ejected 5 = enters airway/contacts vocal folds/not ejected 6 = enters airway/below vocal folds/ejected 7 = enters airway/below vocal folds/not ejected despite effort 8 = enters airway/below vocal folds/no effort VIDEOFLOROSCOPIC SCALE SCORE (CHAN): Grade I = aspiration of material that has penetrated into the laryngeal vestibule, intact cough reflex Grade II = aspiration < 10 % of the bolus, intact cough reflex Grade III = aspiration of < 10 % of the bolus, reduced cough reflex or aspiration of > 10 % of the bolus, intact cough reflex Grade IV = aspiration of > 10 % of the bolus, reduced cough reflex - Penetration-Aspiration Scale Score Thin Liquid via teaspoon Result: 1= does not enter airway Thin Liquid via teaspoon Trial 2 Result: 1= does not enter airway Thin Liquid via large single sip from cup Result: 1= does not enter airway [place] Thick Liquid via small single sip from cup Result: 1= does not enter airway Pudding via teaspoon with esophageal screen Result: 1= does not enter airway 1/2 Cookie Result: 1= does not enter airway Thin Liquid via sequential sips from straw Result: 1= does not enter airway - Oral Phase Labial Seal: No Labial Escape Tongue Control During Bolus Hold: Posterior escape of less than half of bolus Bolus Preparation/Mastication: Slow prolonged chewing/mashing with complete recollection Bolus Transport/Lingual Motion: Brisk tongue motion Oral Residue: Residue collection on oral structures - piecemeal deglutition of large sips - Pharyngeal Phase Initiation of Pharyngeal Swallow: Bolus head at posterior laryngeal surgace of epiglottis Soft Palate Elevation: Trace column of contrast/air between soft palate and pharyngeal wall Laryngeal Elevation: Comp. Superior move thyroid cart w/comp. apprx arytenoid cart-epig pet Anterior Hyoid Excursion: Partial anterior movement Epiglottic Movement: Partial inversion - inconsistent Laryngeal Vestibule Closure at Height of Swallow: Complete; no air/contrast in laryngeal vestibule Pharyngeal Stripping Wave: Present - diminished Pharyngoesophageal Segment Opening: Parital distension and partial duration; parital obstruction of flow Tongue Base Retraction: Wide column of contrast between tongue base & post. pharyngeal wall Pharyngeal Residue: Collection of residue within or on pharyngeal structures - Esophageal Phase Esophageal Clearance: Esophageal retention w/ retrograde flow below pharyngoesophageal seg. - Diagnosis/Impression Diagnosis: Mild oropharyngeal phase dysphagia, Esophageal dysphagia Impression: The oral phase is primarily marked by... -Piecemeal deglutition of large sips, pudding, and cookie. -Prolonged, but adequate mastication. Strongly consider use of dentures to improve mastication timeliness. The pharyngeal phase is primarily marked by... -Decreased pharyngeal clearance, primarily with foods, due to decreased tongue base retraction, decreased UES opening/duration, and decreased pharyngeal stripping wave. Pt required two swallows, which he independently used, to clear moderate pharyngeal residues of large sips, pudding, and cookie. Patient reported feeling like there was a peanut in the way in his throat after pudding trial, although very little pharyngeal residue remained after multiple swallows. -Decreased anterior hyoid excursion; however, patient maintained excellent airway closure throughout the study with good laryngeal elevation and laryngeal vestibular closure during the swallow. The esophageal phase is primarily marked by... -Esophageal retention of pudding and thin liquids in mid and lower esophagus with retrograde flow remaining below UES. - Recommendations Diet: Regular Textures, Thin Liquids Comment: If experiencing s/s of reflux or regurgitation, recommend pausing meal and resuming at a later time once symptoms subside to allow time for esophageal emptying. Compensatory Strategies: Small Bites, Small Sips, Slow Rate, Multiple Swallows, Alternate bites/solids and sips/liquids, Sitting upright, Remain sitting upright for 30 minutes after PO intake Recommend Repeat Modified Barium Swallow: No Need for Skilled Speech Therapy Services: Yes Comment: Will recommend the patient for outpatient dysphagia therapy to address deficits in oropharyngeal swallow function. Will recommend the patient for pharyngeal strengthening to improve hyoid excursion, tongue base retraction, pharyngeal contraction, and duration of UES opening (Lisa, CTAR, effortful swallow, Felicia). The patient would benefit from thorough education regarding diet recommendations and recommended compensatory strategies. Recommended Referrals: GI Consult - continue to follow with GI regarding management of reflux (pt reports frequent globus sensation) and for slowed esophageal emptying, ENT Consult - patient is reporting intermittent tightening of voice that inhibits ability for speaking Education Completed: 1. Described result of evaluation., 7. Pt requires further education on strategies & risks. - Status Active ST Patient: Active - Contact Information [facility] Speech Therapy:: Veena Serna M.A. [facility] Speech-Language Pathologist [facility] [address] [place] [address] [email or web address] [phone] 06/09/22 15:02
== END | disposition home or self-care (01) ==
LOC: RAD 12:56
PROVIDERS: PCP Internal Medicine; Visit Provider Internal Medicine
DX: R13.10 Dysphagia, unspecified (principal)
CPT/HCPCS: 74230; 92611

== ENCOUNTER 2022-06-12 10:43 | Outpatient (RCR) | payer MEDICARE, SELFPAY ==
--- NOTE | 2022-06-13 07:46 | ST ---
[facility] Speech Pathology [address] [place] [address] Modified Barium Swallow Study MR#: [id number] Acct: [id number] Name: XAVI FINN Rep #: [id number] : 1935 86 From: Veena Serna M.A., [facility] [employer] Modified Barium Swallow - Patient Information Study Date: 06/09/22 Study Time: 13:00 Direct Billable Minutes: 95 Total Minutes procedure & reportin Diagnosis: GERD (K21.9), Dysphagia (R13.10) Referring Physician: Santino Morillo Reason for Referral: Objectively assess swallow function, assess risk for aspiration, and determine recommendations for least restrictive diet textures and compensatory strategies to improve safety of swallow. Medical History: Patient is a 86-year-old male with PMH including abdominal pain, cough, dysphagia, hx of IBS, hoarseness, shortness of breath, weight loss (SEE EMR for full PMH). Pt referred for MBSS from PCP, Dr. Morillo, to address chronic history of dysphagia. He was seen GI and was referred to speech therapy in the past, but he did not follow through.? He still reports concerns with swallowing to PCP, feeling like foods get stuck. He was last seen by GI in August of 2021. For follow up for lymphocytic gastritis, GERD, and constipation. He had EGD performed 03/07/21 revealing abnormal esophageal motility suspicious for achalasia, low grade narrowing of Schatzki ring ? dilated, LA Grade A reflux esophagitis, erythematous mucosa in antrum, duodenitis w/ biopsy - antrum, lymphocytic gastritis, and distal esophagus inflammation. Per patient report at MBSS, he denied recent history of GERD, but stated that he did have GERD ~40-50 years ago. He reports coughing spells at home both with and without food, as well as coughing spells at night when he lies down. He denies regurgitation of food/drink. Patient?s primary concerns were sensation of something stuck in his throat and intermittent ?tightening of his voice? that inhibits his ability to speak which he reports occurs with prolonged speaking. He denies difficulty breathing with reported sensation of throat tightening. Current Diet Ordered: Regular textures / Thin liquids Dentition: Edentulous - upper dentures at home, Missing Teeth - missing majority of teeth from lower dentition Mental Status: WNL - Able to reliably follow commands to complete evaluation Respiratory Status: Oxygenating on Room Air - Penetration-Aspiration Scale Penetration-Aspiration Scale: OBJECTIVE ASSESSMENT OF SWALLOW FUNCTION (QUANTITATIVE ? PER TRIAL): PENETRATION / ASPIRATION SCALE (CHAN): 1 = does not enter airway 2 = enters airway/above vocal folds/ejected 3 = enters airway/above vocal folds/not ejected 4 = enters airway/contacts vocal folds/ejected 5 = enters airway/contacts vocal folds/not ejected 6 = enters airway/below vocal folds/ejected 7 = enters airway/below vocal folds/not ejected despite effort 8 = enters airway/below vocal folds/no effort VIDEOFLOROSCOPIC SCALE SCORE (CHAN): Grade I = aspiration of material that has penetrated into the laryngeal vestibule, intact cough reflex Grade II = aspiration < 10 % of the bolus, intact cough reflex Grade III = aspiration of < 10 % of the bolus, reduced cough reflex or aspiration of > 10 % of the bolus, intact cough reflex Grade IV = aspiration of > 10 % of the bolus, reduced cough reflex - Penetration-Aspiration Scale Score Thin Liquid via teaspoon Result: 1= does not enter airway Thin Liquid via teaspoon Trial 2 Result: 1= does not enter airway Thin Liquid via large single sip from cup Result: 1= does not enter airway [place] Thick Liquid via small single sip from cup Result: 1= does not enter airway Pudding via teaspoon with esophageal screen Result: 1= does not enter airway 1/2 Cookie Result: 1= does not enter airway Thin Liquid via sequential sips from straw Result: 1= does not enter airway - Oral Phase Labial Seal: No Labial Escape Tongue Control During Bolus Hold: Posterior escape of less than half of bolus Bolus Preparation/Mastication: Slow prolonged chewing/mashing with complete recollection Bolus Transport/Lingual Motion: Brisk tongue motion Oral Residue: Residue collection on oral structures - piecemeal deglutition of large sips - Pharyngeal Phase Initiation of Pharyngeal Swallow: Bolus head at posterior laryngeal surgace of epiglottis Soft Palate Elevation: Trace column of contrast/air between soft palate and pharyngeal wall Laryngeal Elevation: Comp. Superior move thyroid cart w/comp. apprx arytenoid cart-epig pet Anterior Hyoid Excursion: Partial anterior movement Epiglottic Movement: Partial inversion - inconsistent Laryngeal Vestibule Closure at Height of Swallow: Complete; no air/contrast in laryngeal vestibule Pharyngeal Stripping Wave: Present - diminished Pharyngoesophageal Segment Opening: Parital distension and partial duration; parital obstruction of flow Tongue Base Retraction: Wide column of contrast between tongue base & post. pharyngeal wall Pharyngeal Residue: Collection of residue within or on pharyngeal structures - Esophageal Phase Esophageal Clearance: Esophageal retention w/ retrograde flow below pharyngoesophageal seg. - Diagnosis/Impression Diagnosis: Mild oropharyngeal phase dysphagia, Esophageal dysphagia Impression: The oral phase is primarily marked by... -Piecemeal deglutition of large sips, pudding, and cookie. -Prolonged, but adequate mastication. Strongly consider use of dentures to improve mastication timeliness. The pharyngeal phase is primarily marked by... -Decreased pharyngeal clearance, primarily with foods, due to decreased tongue base retraction, decreased UES opening/duration, and decreased pharyngeal stripping wave. Pt required two swallows, which he independently used, to clear moderate pharyngeal residues of large sips, pudding, and cookie. Patient reported feeling like there was a peanut in the way in his throat after pudding trial, although very little pharyngeal residue remained after multiple swallows. -Decreased anterior hyoid excursion; however, patient maintained excellent airway closure throughout the study with good laryngeal elevation and laryngeal vestibular closure during the swallow. The esophageal phase is primarily marked by... -Esophageal retention of pudding and thin liquids in mid and lower esophagus with retrograde flow remaining below UES. - Recommendations Diet: Regular Textures, Thin Liquids Comment: If experiencing s/s of reflux or regurgitation, recommend pausing meal and resuming at a later time once symptoms subside to allow time for esophageal emptying. Compensatory Strategies: Small Bites, Small Sips, Slow Rate, Multiple Swallows, Alternate bites/solids and sips/liquids, Sitting upright, Remain sitting upright for 30 minutes after PO intake Recommend Repeat Modified Barium Swallow: No Need for Skilled Speech Therapy Services: Yes Comment: Will recommend the patient for outpatient dysphagia therapy to address deficits in oropharyngeal swallow function. Will recommend the patient for pharyngeal strengthening to improve hyoid excursion, tongue base retraction, pharyngeal contraction, and duration of UES opening (Lisa, CTAR, effortful swallow, Felicia). The patient would benefit from thorough education regarding diet recommendations and recommended compensatory strategies. Recommended Referrals: GI Consult - continue to follow with GI regarding management of reflux (pt reports frequent globus sensation) and for slowed esophageal emptying, ENT Consult - patient is reporting intermittent tightening of voice that inhibits ability for speaking Education Completed: 1. Described result of evaluation., 7. Pt requires further education on strategies & risks. - Status Active ST Patient: Active - Contact Information [facility] Speech Therapy:: Veena Serna M.A. CCC-SUPERVISOR PLEATING Speech-Language Pathologist [facility] [address] [place] [id number] [email or web address] [phone] 06/09/22 15:02 06/09/22 1541 <Electronically signed by Veena Serna M.A., CCC-SUPERVISOR PLEATING> Date/Time Veena Serna M.A., CCC-SUPERVISOR PLEATING
--- NOTE | 2022-06-13 09:24 | HP.SP.EV_ITS ---
Visit History - Visit Info Date of Eval: 06/12/22 Visit: 1 Vp Of Technology: VASU - History Attending Doctor: Referring Doctor: Reason for Referral: DYSPHAGIA. RX HERE Medical Diagnosis: Mild Oropharyngeal Dysphagia; Esophageal Dysphagia Previous speech therapy: No Other Relevant Medical History/Diagnoses/Surgery: NII FINN is an 86 year old male who presents to [facility] today d/t concerns with dysphagia following completion of his MBSS earlier this week (see results below). Pt has reportedly been having a feeling in his throat after eating and also coughing on phlegm during the day and saliva at night. He was seen by GI in the past and referred to speech therapy however at the time he declined. Previously seen by GI in August 2021. EGD performed 03/07/21: abnormal esophageal motility suspicious for achalasia, low grade narrowing of Schatzki ring reportedly dilated (however Pt declining this occurred), LA Grade A reflux esophagitits, distal esophagus inflammation, lymphocytic gastritis, duodenitis w/ biopsy - antrum. Pt reporting frustration with his swallowing. Smoking Status: Never smoker - Pain Is pain an issue with your current prescribed condition?: No - Personal Preferred language: Tamazight History - History Date of Eval: 06/12/22 Medical Diagnosis (from RX): Mild Oropharyngeal Dysphagia; Esophageal Dysphagia Previous speech therapy: No Other Relevant Medical History/Diagnoses/Surgery: NII FINN is an 86 year old male who presents to [facility] today d/t concerns with dysphagia following completion of his MBSS earlier this week (see results below). Pt has reportedly been having a feeling in his throat after eating and also coughing on phlegm during the day and saliva at night. He was seen by GI in the past and referred to speech therapy however at the time he declined. Previously seen by GI in August 2021. EGD performed 03/07/21: abnormal esophageal motility suspicious for achalasia, low grade narrowing of Schatzki ring reportedly dilated (however Pt declining this occurred), LA Grade A reflux esophagitits, distal esophagus inflammation, lymphocytic gastritis, duodenitis w/ biopsy - antrum. Pt reporting frustration with his swallowing. Smoking Status: Never smoker Hx Smoking: No Hx Tobacco Use: No - Pain Is pain an issue with your current prescribed condition?: No Patient Allergies - Allergies Allergies levothyroxine Allergy (Severe, Verified 05/15/22 13:42) chest pain carbamazepine [From Tegretol] Allergy (Unknown, Verified 05/15/22 13:42) YBARRA, PAIN ALL OVER, CAN'T FEEL, I WAS ALMOST levofloxacin Allergy (Verified 05/15/22 13:42) Rash pravastatin Allergy (Verified 05/15/22 13:42) Rash Subjective Dysphagia - Symptoms Reported Symptoms/Problems with: Food gets stuck - Current Diet Solids Current Diet: Regular - Current Diet Liquids Current Liquids: Thin - Comments Education -: Direct education was provided re: MBSS results from earlier this week re: PAS scores of '1 - does not enter the airway' across all PO trials. Reviewed images again with Pt to show mild pharyngeal residue following pudding trial that was cleared with a second independent swallow. Educated Pt on the severe esophageal retention of pudding trial in the upper and middle thirds of his esophagus which is to be expected given his previous diagnoses. Recommended that he continue with GI. Also addressing Pt's concerns of coughing on saliva and phlegm at night while he is laying down. Rx to raising his head up with another pillow and also consulting ENT for potential post-nasal drip. Evaluating therapist for his MBSS also rx ENT d/t Pt's report of losing his voice after talking for an extended period of time. Pt denying difficulty breathing during these moments however he does lose his voice. This therapist also rx ENT for this symptom. Oropharyngeal Exercises -: Direct education provided re: six oropharyngeal exercises including Lisa, Shaker, effortful swallow, Felicia, Yawning, and CTAR. Examples of each exercise were provided along with Pt trialing them. Handout given for each exercise along with tracker for completing them at home. Modified Barium Results Hx MBS Report Entered: Yes MBS Results (from prior exam): 06/13/22 07:46 Speech Therapy by Tejal Pacheco [facility] Speech Pathology [address] [place] [address] Modified Barium Swallow Study MR#: [id number] Acct: [id number] Name: NII FINN Rep #:[id number] : 1935 86 From: Veena Weems, [facility] [facility] [employer] Modified Barium Swallow - Patient Information Study Date: 06/09/22 Study Time: 13:00 Direct Billable Minutes: 95 Total Minutes procedure & reportin Diagnosis: GERD (K21.9), Dysphagia (R13.10) Referring Physician: Santino Morillo Reason for Referral: Objectively assess swallow function, assess risk for aspiration, and determine recommendations for least restrictive diet textures and compensatory strategies to improve safety of swallow. Medical History: Patient is a 86-year-old male with PMH including abdominal pain, cough, dysphagia, hx of IBS, hoarseness, shortness of breath, weight loss (SEE EMR for full PMH). Pt referred for MBSS from PCP, Dr. Morillo, to address chronic history of dysphagia. He was seen GI and was referred to speech therapy in the past, but he did not follow through.? He still reports concerns with swallowing to PCP, feeling like foods get stuck. He was last seen by GI in August of 2021. For follow up for lymphocytic gastritis, GERD, and constipation. He had EGD performed 03/07/21 revealing abnormal esophageal motility suspicious for achalasia, low grade narrowing of Schatzki ring ? dilated, LA Grade A reflux esophagitis, erythematous mucosa in antrum, duodenitis w/ biopsy - antrum, lymphocytic gastritis, and distal esophagus inflammation. Per patient report at MBSS, he denied recent history of GERD, but stated that he did have GERD ~40-50 years ago. He reports coughing spells at home both with and without food, as well as coughing spells at night when he lies down. He denies regurgitation of food/drink. Patient?s primary concerns were sensation of something stuck in his throat and intermittent ?tightening of his voice? that inhibits his ability to speak which he reports occurs with prolonged speaking. He denies difficulty breathing with reported sensation of throat tightening. Current Diet Ordered: Regular textures / Thin liquids Dentition: Edentulous - upper dentures at home, Missing Teeth - missing majority of teeth from lower dentition Mental Status: WNL - Able to reliably follow commands to complete evaluation Respiratory Status: Oxygenating on Room Air - Penetration-Aspiration Scale Penetration-Aspiration Scale: OBJECTIVE ASSESSMENT OF SWALLOW FUNCTION (QUANTITATIVE ? PER TRIAL): PENETRATION / ASPIRATION SCALE (CHAN): 1 = does not enter airway 2 = enters airway/above vocal folds/ejected 3 = enters airway/above vocal folds/not ejected 4 = enters airway/contacts vocal folds/ejected 5 = enters airway/contacts vocal folds/not ejected 6 = enters airway/below vocal folds/ejected 7 = enters airway/below vocal folds/not ejected despite effort 8 = enters airway/below vocal folds/no effort VIDEOFLOROSCOPIC SCALE SCORE (CHAN): Grade I = aspiration of material that has penetrated into the laryngeal vestibule, intact cough reflex Grade II = aspiration < 10 % of the bolus, intact cough reflex Grade III = aspiration of < 10 % of the bolus, reduced cough reflex or aspiration of > 10 % of the bolus, intact cough reflex Grade IV = aspiration of > 10 % of the bolus, reduced cough reflex - Penetration-Aspiration Scale Score Thin Liquid via teaspoon Result: 1= does not enter airway Thin Liquid via teaspoon Trial 2 Result: 1= does not enter airway Thin Liquid via large single sip from cup Result: 1= does not enter airway [place] Thick Liquid via small single sip from cup Result: 1= does not enter airway Pudding via teaspoon with esophageal screen Result: 1= does not enter airway 1/2 Cookie Result: 1= does not enter airway Thin Liquid via sequential sips from straw Result: 1= does not enter airway - Oral Phase Labial Seal: No Labial Escape Tongue Control During Bolus Hold: Posterior escape of less than half of bolus Bolus Preparation/Mastication: Slow prolonged chewing/mashing with complete recollection Bolus Transport/Lingual Motion: Brisk tongue motion Oral Residue: Residue collection on oral structures - piecemeal deglutition of large sips - Pharyngeal Phase Initiation of Pharyngeal Swallow: Bolus head at posterior laryngeal surgace of epiglottis Soft Palate Elevation: Trace column of contrast/air between soft palate and pharyngeal wall Laryngeal Elevation: Comp. Superior move thyroid cart w/comp. apprx arytenoid cart-epig pet Anterior Hyoid Excursion: Partial anterior movement Epiglottic Movement: Partial inversion - inconsistent Laryngeal Vestibule Closure at Height of Swallow: Complete; no air/contrast in laryngeal vestibule Pharyngeal Stripping Wave: Present - diminished Pharyngoesophageal Segment Opening: Parital distension and partial duration; parital obstruction of flow Tongue Base Retraction: Wide column of contrast between tongue base & post. pharyngeal wall Pharyngeal Residue: Collection of residue within or on pharyngeal structures - Esophageal Phase Esophageal Clearance: Esophageal retention w/ retrograde flow below pharyngoesophageal seg. - Diagnosis/Impression Diagnosis: Mild oropharyngeal phase dysphagia, Esophageal dysphagia Impression: The oral phase is primarily marked by... -Piecemeal deglutition of large sips, pudding, and cookie. -Prolonged, but adequate mastication. Strongly consider use of dentures to improve mastication timeliness. The pharyngeal phase is primarily marked by... -Decreased pharyngeal clearance, primarily with foods, due to decreased tongue base retraction, decreased UES opening/duration, and decreased pharyngeal stripping wave. Pt required two swallows, which he independently used, to clear moderate pharyngeal residues of large sips, pudding, and cookie. Patient reported feeling like there was a peanut in the way in his throat after pudding trial, although very little pharyngeal residue remained after multiple swallows. -Decreased anterior hyoid excursion; however, patient maintained excellent airway closure throughout the study with good laryngeal elevation and laryngeal vestibular closure during the swallow. The esophageal phase is primarily marked by... -Esophageal retention of pudding and thin liquids in mid and lower esophagus with retrograde flow remaining below UES. - Recommendations Diet: Regular Textures, Thin Liquids Comment: If experiencing s/s of reflux or regurgitation, recommend pausing meal and resuming at a later time once symptoms subside to allow time for esophageal emptying. Compensatory Strategies: Small Bites, Small Sips, Slow Rate, Multiple Swallows, Alternate bites/solids and sips/liquids, Sitting upright, Remain sitting upright for 30 minutes after PO intake Recommend Repeat Modified Barium Swallow: No Need for Skilled Speech Therapy Services: Yes Comment: Will recommend the patient for outpatient dysphagia therapy to address deficits in oropharyngeal swallow function. Will recommend the patient for pharyngeal strengthening to improve hyoid excursion, tongue base retraction, pharyngeal contraction, and duration of UES opening (Lisa, CTAR, effortful swallow, Felicia). The patient would benefit from thorough education regarding diet recommendations and recommended compensatory strategies. Recommended Referrals: GI Consult - continue to follow with GI regarding management of reflux (pt reports frequent globus sensation) and for slowed esophageal emptying, ENT Consult - patient is reporting intermittent tightening of voice that inhibits ability for speaking Education Completed: 1. Described result of evaluation., 7. Pt requires further education on strategies & risks. - Status Active ST Patient: Active - Contact Information [facility] Speech Therapy:: Veena Serna M.A. [facility] [facility] [employer] Speech-Language Pathologist [place] [id number] [place] [address] [email or web address] [phone] 06/09/22 15:02 06/09/22 1541 <Electronically signed by Veena Serna M.A., CCC-LAMINATION ASSEMBLER> Date/Time Veena Serna M.A., CCC-LAMINATION ASSEMBLER Initialized on 06/13/22 07:46 - END OF NOTE Plan - Plan Plan: Will rx Pt for skilled outpatient tx to address deficits in oropharyngeal and esophageal dysphagia. Pt would benefit from training and education re: diet tolerance checks and swallowing exercises to aid in oropharyngeal strengthening. Without skilled intervention, Pt is at risk for consuming a restrictive diet putting him at risk for atrophy of laryngeal musculature. - Recommendations Treatment Warranted: Yes Treatment Warranted: Dysphagia Comment: Recommending treatment for Pt for follow-up with his oropharyngeal exercises for 1-2x visit follow up, however Pt declining additional visits. Pt reporting that he will return within a month's time if his swallowing gets worse, but if it is the same or gets better he will not schedule additional visits. Discussed the importance of completing the exercises correctly to maximize results and the benefit of returning for additional visits to ensure correct performance with exercises, however Pt continued to decline participating in additional visits at this time. Discussed leaving Pt's chart open for the month of June and then he will be d/c. - Frequency Frequency: 1x/Week Duration: 4 Weeks - Goals that are Established Determination:: Goals will be added/modified as deemed necessary and appropriate. Therapy will be discontinued when results of re-evaluation indicate therapy is no longer needed or lack of progress has been documented. - Goal #1-5 Goal #1: Nii will complete oropharyngeal exercises for 10 reps, 2-3x/day independently to improve tongue base retraction, PES opening/distention, and hyolaryngeal elevation and excursion. Goal #2: Nii will utilize swallowing strategies (multiple swallows) and tolerate least restrictive diet with no overt s/s of aspiration/penetration to aid in safe consumption of solid/liquids independently. Education - Patient has Indicated that the Following Identified Educational Needs: None The Patient has indicated that they have no educational or learning abilities that may effect their care.: Yes - Patient Instruction Patient Education: Diagnosis, Treatment Plan, Goals, Safety Precautions, Diet Level, Home Exercise Program Person Taught: Patient Teaching Method: Discussion, Demonstration, Handout, Audiovisual Response to teaching: Return demonstration, Verbalize understanding
--- NOTE | 2022-07-10 09:16 | HP.SP.DC_ITS ---
ST Discharge Summary - Discharged: Discharge: XAVI FINN is an 86 year old male who presented to [facility] on 06/12/2022 following a dx of mild oropharyngeal dysphagia and severe esophageal dysphagia. Pt attended initial evaluation with goals created to target oropharyngeal strengthening exercises, diet tolerance, and adherence to safe swallowing strategies. Treatment was recommended for Pt for follow-up with his oropharyngeal exercises for 1-2x visit follow up, however Pt declining additional visits. Pt reporting that he will return within a month's time if his swallowing gets worse, but if it is the same or gets better he will not schedule additional visits. Discussed the importance of completing the exercises correctly to maximize results and the benefit of returning for additional visits to ensure correct performance with exercises, however Pt continued to decline participating in additional visits at this time. Discussed leaving Pt's chart open for the month of June and then he will be d/c. Since evaluation, additional visits have not be scheduled by Pt, therefore, Pt being discharged from speech therapy caseload on this date 07/10/22 d/t Pt absence in attending additional treatment visits. Thank you for allowing me to participate in the care of your patient. Will reevaluate at Pt?s request following script from physician.
== END 2022-06-12 19:00 | disposition home or self-care (01) ==
LOC: SP 10:43
PROVIDERS: PCP Internal Medicine; Referring Provider Internal Medicine; Visit Provider Internal Medicine
DX: R13.10 Dysphagia, unspecified (principal)
CPT/HCPCS: 92610

== ENCOUNTER → 2023-02-23 | Outpatient (CLI) | payer MEDICARE, SELFPAY ==
[2023-02-23 13:27] LABS: Bacteria 0 SEEN /hpf (None Seen); Mucous, Urine 0 SEEN /hpf (<or=2+); Red Blood Cells-Urine 0 SEEN /hpf (0-5); Squamous Epithelial Cells - UA 0 SEEN /hpf (0-5)
[2023-02-23 13:31] LABS: Color, Urine Yellow (Yellow); Glucose, Dipstick Normal (Normal); Ketone-Dipstick 5 mg/dl (Negative); Leukocyte Esterase-Dipstick 500 /ul (Negative); Nitrite-Dipstick Negative (Negative); Occult Blood-Urine 25 /ul (Negative); Protein-Dipstick 100 mg/dl (Negative); Specific Gravity, Urine 1.025 (1.002-1.030); Urine Bilirubin Dipstick Negative (Negative); Urine Clarity Sl. Cloudy (Clear); Urine Urobilinogen 1 mg/dl (Normal)
[2023-02-23 13:42] LABS: White Blood Cells >100 SEEN /hpf (0-5)
== END | disposition home or self-care (01) ==
LOC: LABSPEC 12:34
PROVIDERS: PCP Internal Medicine; Referring Provider Physician Assistant; Visit Provider Physician Assistant
DX: R30.0 Dysuria (principal); R10.9 Unspecified abdominal pain
CPT/HCPCS: 81001; 87077; 87086; 87088; 87186

== ENCOUNTER 2023-03-07 08:58 | Emergency (ER) | payer MEDICARE, SELFPAY ==
[2023-03-07 09:00] VITALS: BP 131/64; PULSE 81; RESP 16; TEMP 36.7; O2SAT 99; BMI 16.6
--- NOTE | 2023-03-07 09:25 | EKG12_ITS ---
Test Reason : GENERAL Blood Pressure : / mmHG Vent. Rate : 061 BPM Atrial Rate : 061 BPM P-R Int : 160 ms QRS Dur : 086 ms QT Int : 386 ms P-R-T Axes : 078 032 075 degrees QTc Int : 388 ms Normal sinus rhythm with sinus arrhythmia Normal ECG Confirmed by AMADOU VOGEL, JOSEPH ([id number]), market editor ERICK PILLAI ([id number]) on 03/09/2023 9:45:13 AM Referred By: Brock Lim Confirmed By:JOSEPH TOBAR MD
--- NOTE | 2023-03-07 09:26 | EX.ED.DYSGE1 ---
HPI History of Present Illness Chief Complaint: General Illness Detail of Chief Complaint: Multiple complaints Informant: patient Narrative Narrative: Patient presents to the emergency department with multiple complaints that have been going on for several weeks. Patient complains of cough and subjective fever at home. He complains of chest pain intermittently in the center of his chest. Yesterday he was lightheaded going up the steps. He complains of getting up frequently in the middle night to urinate. Patient states that he was treated for UTI on February 24 with Keflex. He denies urinary symptoms otherwise. Patient has history of diabetes and hypertension. Patient lives alone. He complains of generalized weakness. [facility] Medical History Abdominal pain Anxiety Arthritis Back pain Borderline type 2 diabetes mellitus Bruising Chest pain Chronic cough Constipation Cough Cramps, extremity Dysphagia Easy bruising Elevated blood sugar level Epigastric pain Fatigue Heart murmur Hemorrhoids High cholesterol History of IBS History of stress test Hoarseness Hypertension Leg cramps Nausea Non-smoker Prostate disease SOB (shortness of breath) Subclinical hypothyroidism Wears dentures Wears glasses Weight loss Home Medications omeprazole 40 mg capsule,delayed release 40 mg PO DAILY #90 caps 02/11/23 [Rx Last Taken Unknown] cephalexin 500 mg capsule 500 mg PO TID #21 caps 02/23/23 [Rx Last Taken Unknown] sulfamethoxazole 800 mg-trimethoprim 160 mg tablet 1 tab PO BID #14 TABLETS 03/07/23 [Rx Last Taken Unknown] Allergy/AdvReac Type Severity Reaction Status Date / Time levothyroxine Allergy Severe chest pain Verified 03/07/23 09:04 carbamazepine [From Tegretol] Allergy Unknown YBARRA, PAIN Verified 03/07/23 09:04 ALL OVER, CAN'T FEEL, I WAS ALMOST levofloxacin Allergy Rash Verified 03/07/23 09:04 pravastatin Allergy Rash Verified 03/07/23 09:04 omeprazole [From Prilosec] AdvReac Intermediate Upset Verified 03/07/23 09:04 Stomach Family History Son , unknown cancer- @ 50 Cancer Other Abdominal pain Dysphagia Surgical History H/O eye surgery History of esophagogastroduodenoscopy (EGD) History of surgery Hx of bilateral inguinal hernia repair Hx of colonoscopy Hx of hemorrhoidectomy Hx of left inguinal hernia repair Hydrocele in adult Social History Smoking Status: Never smoker second hand exposure: No alcohol intake: never substance use type: does not use caffeine: Yes what type of physical activity do you participate in: walking frequency: daily seatbelt use: always ROS ROS ED Review of Systems ROS Unobtainable: other Constitutional Constitutional ED: Reports lethargy; Denies chills, fever(s), sweats or weight loss Eyes Eyes: Denies blurry vision, change in vision or diplopia ENT ENT ED: Denies rhinorrhea or sore throat Cardiovascular Cardiovascular: Reports chest pain; Denies orthopnea or racing heartbeat Respiratory/Chest Respiratory/Chest: Reports cough, dyspnea and dyspnea on exertion; Denies orthopnea or sputum Gastrointestinal Gastrointestinal: Denies abdominal pain, diarrhea, nausea or vomiting Genitourinary Genitourinary ED: Denies dysuria, hematuria or urinary frequency Musculoskeletal Musculoskeletal: Denies arthralgias, back pain, myalgias or neck pain Integumentary Denies abscess, Abrasions or rash Neurologic Neurologic: Denies headache(s) or weakness Psychiatric Psychiatric: Denies anxiety, depression or suicidal thoughts Endocrine Endocrinology: Denies polydipsia, polyphagia or polyuria Hematologic/Lymphatic Hematologic/Lymphatic: Denies easy bleeding, easy bruising or lymphadenopathy Allergic/Immunologic Allergic/Immunologic ED: Denies mouth swelling, tongue swelling or urticaria EXAM Physical Exam Const Vital Signs: 03/07/23 09:00 03/07/23 09:25 03/07/23 11:29 Temperature 98.1 F Temperature Source Temporal Pulse Rate 81 53 L Respiratory Rate 16 18 Respiratory Effort Normal Non-Labored Respiratory Pattern Normal Blood Pressure 131/64 H 168/62 H Blood Pressure Mean 86 97 Pulse Ox 99 100 Oxygen Delivery Method Room Air Room Air Positive well nourished and well developed General Appearance ED: well developed and NAD HEENT Reports TM's clear and moist mucous membranes normocephalic and atraumatic; Negative for trauma or tenderness Tympanic Membrane ED: Yes TM's clear Eyes PERRL and EOMs intact bilaterally General Eye ED: Negative for pale conjunctiva or scleral icterus Neck no lymphadenopathy, supple and no JVD General: Negative for tenderness Chest Wall inspection of chest normal and palpation of chest normal Chest: Negative for tenderness Resp normal respiratory effort and clear to auscultation bilaterally Effort and Inspection: Negative for respiratory distress or pain with movement Auscultation: Negative for rhonchi, wheezes or diminished lung sounds Cardio regular rate, regular rhythm, S1 normal heart sound, S2 normal heart sound and no murmurs Peripheral Pulses: pulses 2+ throughout GI normal to inspection, nondistended, normoactive bowel sounds, soft to palpation, non-tender, non-distended and no masses Back/Spine no CVA tenderness and no thoracic nor lumbar tenderness Extremity normal to inspection General Extremety ED: Negative for edema General Extremity: Negative for edema Neuro oriented x3, CN's II-XII intact bilaterally, no sensory deficits noted and gait normal Sensorium / Orientation: awake, alert, oriented to person, oriented to place and oriented to time Motor Exam: strength 5/5 throughout and strength abnormal Psych mental status grossly normal Skin no rashes or lesions noted and no wounds MDM MDM MDM Narrative Medical decision making narrative: Presents to the emergency department with multiple vague complaints. Patient has not been feeling well for about 2 weeks. He was recently treated for UTI. Currently has no urine symptoms. Has had some vague chest discomfort intermittently. IV line established. EKG obtained showed a sinus rhythm with a rate of 61 bpm with no acute ST segment changes. CBC with differential obtained showing a 6.7 with hemoglobin 11.7 and platelet count of 323. D-dimer was normal at less than 0.27. Chemistries unremarkable. Troponin was 6. Chest x-ray showed no evidence of infiltrate. Urine this up Ainge showed 1 leukocyte Estrace and 25 to 50 cc and +1 bacteria. Urine culture was sent. Patient was started on Bactrim. Suspect possibility for UTI despite recent treatment. Patient can be discharged to home. I do not feel he is having acute coronary syndrome. His abdominal exam is benign and respiratory exams unremarkable. We will treat with Bactrim and referred to his primary care physician for follow-up within next 3 to 5 days. Lab Data Attestation: I reviewed the patient's lab results. Labs: Laboratory Results - last 24 hr 03/07/23 03/07/23 09:50 10:58 WBC 6.7 RBC 3.78 L Hgb 11.7 L Hct 37.1 L MCV 98.1 H MCH 31.0 MCHC 31.5 L RDW Std Deviation 51.2 H RDW Coeff of Cristopher 14.2 Plt Count 323 MPV 10.1 Immature Gran % (Auto) 0.300 Neut % (Auto) 76.8 H Lymph % (Auto) 13.5 L [place] % (Auto) 8.3 Eos % (Auto) 0.3 Baso % (Auto) 0.8 Absolute Neuts (auto) 5.1 Absolute Lymphs (auto) 0.90 Nucleated RBC % 0 D-Dimer Quant (PE/DVT) < 0.27 L Sodium 137 Potassium 3.7 Chloride 101 Carbon Dioxide 32.0 Anion Gap 4 L BUN 16 Creatinine 1.04 Estim Creat Clear Calc 32.11 Est GFR (MDRD) Af Amer 87 Est GFR (MDRD) Non-Af 72 BUN/Creatinine Ratio 15.4 Glucose 189 H Calcium 8.9 Troponin I High Sens 6 Urine Color Yellow Urine Clarity Clear Urine pH 7.0 Ur Specific [place] 1.015 Urine Protein 100 H Urine Glucose (UA) Normal Urine Ketones Negative Urine Occult Blood 10 H Urine Nitrite Negative Urine Bilirubin Negative Urine Urobilinogen Normal Ur Leukocyte Esterase 100 H Urine RBC 0 SEEN Urine WBC 25-50 SEEN Ur Squamous Epith Cells 0 SEEN Urine Bacteria 1+ Urine Mucus 0 SEEN Radiography Diagnostic Testing: Clinical Impression(s) from Imaging Studies Chest X-Ray 03/07/23 10:05 IMPRESSION: Normal x-ray examination of the chest. Electronically Signed: Carlos Pagan MD at 10:35 EST , 1 view chest x-ray obtained interpreted by myself as no evidence of infiltrate or pneumothorax or acute disease process. Radiology in agreement. EKG Initial EKG: Attestation: I personally reviewed and interpreted this EKG as follows: Comments: Sinus rhythm with rate of 61 bpm with no acute ST segment changes Discharge Plan Triage Chief Complaint: General Illness ED Provider: Brock Lim Dx/Rx/DC Orders Clinical Impression: Weakness, Acute UTI, Chest pain Instructions: ED Chest Pain, Uncertain Cause, ED Bladder Infection, Male (Adult), ED Weakness (Uncertain Cause) Prescriptions: New sulfamethoxazole-trimethoprim [sulfamethoxazole-trimethoprim] 800-160 mg tablet 1 tab PO BID Qty: 14 0RF No Action omeprazole 40 mg capsule,delayed release(DR/EC) 40 mg PO DAILY Qty: 90 2RF Rx Instructions: Take 30 minutes before breakfast cephalexin 500 mg capsule 500 mg PO TID Qty: 21 0RF Primary Care Provider: Santino Morillo Referrals: Santino Morillo MD [Primary Care Provider] - 3-5 Days Disposition Disposition: Home, Self Care
[2023-03-07] MEDS: 0.9% Normal Saline (1000mL) 1,000 ML 150 ML IV (09:47)
--- NOTE | 2023-03-07 10:05 | RAD_ITS ---
STUDY: X-RAY CHEST REASON FOR EXAM: Male, 87 years old. chest pain] TECHNIQUE: Single AP portable view of the chest. COMPARISON: 06/04/2021 FINDINGS: The lungs are clear and expanded. There is no demonstrated pleural abnormality. Normal size heart. Normal mediastinum and jens. Normal visualized pulmonary arteries. Normal visualized aortic arch and descending thoracic aorta. Normal visualized thoracic spine. Normal visualized ribs, clavicles, and shoulders. There is no demonstrated abnormality of the visualized soft tissue structures of the upper abdomen. RAD/Chest 1 View (Portable) IMPRESSION: Normal x-ray examination of the chest. Electronically Signed: Carlos Pagan MD at 10:35 EST ,
[2023-03-07 10:08] LABS: Absolute Neutrophil Count 5.1 X10^3/uL (2.0-7.7); Basophil# 0.05 X10^3/uL; Basophil% 0.8 % (0-1); Eosinophil# 0.02 X10^3/uL; Eosinophils% 0.3 % (0-5); Hematocrit 37.1 % (40-54); Hemoglobin 11.7 g/dL (13.0-16.5); Lymphocyte % 13.5 % (19-41); Mean Corp Hgb Conc 31.5 g/dL (32-36); Mean Corpuscular Volume 98.1 fL (80-94); Mean Platelet Vol. 10.1 fl (6.2-12.0); Monocyte# 0.55 X10^3/uL; Monocyte% 8.3 % (0-10); NRBC Flagged by Analyzer 0 % (0-5); Neutrophil # 5.12 X10^3/uL (2.7-7.7); Neutrophil % 76.8 % (47-70); Platelet Count 323 K/mm3 (150-450); RBC Distribution Width CV 14.2 % (11.6-14.6); RBC Distribution Width SD 51.2 fl (35.1-43.9); Red Blood Count 3.78 M/mm3 (4.6-6.2); White Blood Count 6.7 K/mm3 (4.4-11.0)
[2023-03-07 10:21] LABS: Anion Gap 4 (5-15); BUN 16 mg/dL (7-18); BUN/Creat Ratio 15.4 RATIO (10-20); Calcium,Total 8.9 mg/dL (8.5-10.1); Chloride 101 mmol/L (98-107); Creatinine, Serum 1.04 mg/dL (0.70-1.30); EST Glomerular Filtration Rate 72 mL/min (>60); Est Glom Filt Rate - Afr Amer 87 mL/min (>60); Estimated Creatinine Clearance 32.11 ml/min; Glucose 189 mg/dL (74-106); Potassium 3.7 mmol/L (3.5-5.1); Sodium Level 137 mmol/L (136-145); Troponin-I HS 6 pg/mL (3.0-78.0)
[2023-03-07 10:37] LABS: D-Dimer Quantitative (DVT/PE) < 0.27 FEU/ug/m (0.27-0.49)
[2023-03-07 11:00] LABS: Mucous, Urine 0 SEEN /hpf (<or=2+); Red Blood Cells-Urine 0 SEEN /hpf (0-5); Squamous Epithelial Cells - UA 0 SEEN /hpf (0-5)
[2023-03-07 11:08] LABS: Color, Urine Yellow (Yellow); Glucose, Dipstick Normal (Normal); Ketone-Dipstick Negative (Negative); Leukocyte Esterase-Dipstick 100 /ul (Negative); Nitrite-Dipstick Negative (Negative); Occult Blood-Urine 10 /ul (Negative); Protein-Dipstick 100 mg/dl (Negative); Specific Gravity, Urine 1.015 (1.002-1.030); Urine Bilirubin Dipstick Negative (Negative); Urine Clarity Clear (Clear); Urine Urobilinogen Normal (Normal)
[2023-03-07 11:29] VITALS: BP 168/62; PULSE 53; RESP 18; O2SAT 100
[2023-03-07 11:58] LABS: Bacteria 1+ /hpf (None Seen); White Blood Cells 25-50 SEEN /hpf (0-5)
[2023-03-07] MEDS: Smz/Tmp Ds Tablet 1 TABLET PO (12:12)
[2023-03-07 12:25] VITALS: BP 147/68; PULSE 51; RESP 16; O2SAT 97
== END 2023-03-07 12:27 | disposition home or self-care (01) ==
PROVIDERS: Emergency Provider Emergency Medicine; PCP Internal Medicine; Referring Provider Emergency Medicine; Visit Provider Emergency Medicine
DX: N39.0 Urinary tract infection, site not specified (principal); E11.9 Type 2 diabetes mellitus without complications; R53.1 Weakness; I10 Essential (primary) hypertension; E78.00 Pure hypercholesterolemia, unspecified; R07.9 Chest pain, unspecified; R05.9 Cough, unspecified; R50.9 Fever, unspecified; Z79.899 Other long term (current) drug therapy
CPT/HCPCS: 71045; 80048; 81001; 84484; 85025; 85379; 87086; 87428; 93005; 96360; 96361; 99284; J7030

== ENCOUNTER → 2023-03-18 | Outpatient (CLI) | payer MEDICARE, SELFPAY ==
[2023-03-18 12:18] LABS: Absolute Lymphocyte Count 0.84 X10^3/uL (0.83-4.51); Basophil# 0.04 X10^3/uL; Basophil% 0.6 % (0-1); Eosinophil# 0.03 X10^3/uL; Eosinophils% 0.5 % (0-5); Hematocrit 38.1 % (40-54); Hemoglobin 11.9 g/dL (13.0-16.5); Lymphocyte # 0.84 X10^3/ul (0.83-4.51); Lymphocyte % 12.7 % (19-41); Mean Corp Hgb Conc 31.2 g/dL (32-36); Mean Corpuscular Hgb 30.9 pg (27.0-32.0); Monocyte# 0.73 X10^3/uL; NRBC Flagged by Analyzer 0 % (0-5); Neutrophil # 4.95 X10^3/uL (2.7-7.7); Neutrophil % 74.6 % (47-70); Platelet Count 234 K/mm3 (150-450); RBC Distribution Width CV 14.3 % (11.6-14.6); RBC Distribution Width SD 51.8 fl (35.1-43.9); Red Blood Count 3.85 M/mm3 (4.6-6.2); White Blood Count 6.6 K/mm3 (4.4-11.0)
[2023-03-18 12:56] LABS: T4 Free Direct 0.76 ng/dL (0.76-1.46)
[2023-03-18 14:45] LABS: Hemoglobin A1c 5.9 % (3.8-5.6)
[2023-03-18 17:09] LABS: ALB/GLOB Ratio 0.7 RATIO (0.9-2.4); AST(SGOT) 15 U/L (15-37); Alanine Aminotransfer ALT/SGPT 19 U/L (16-61); Albumin, Serum 3.1 g/dL (3.2-5.0); Alkaline Phosphatase 87 U/L (45-117); Anion Gap 3 (5-15); BUN 17 mg/dL (7-18); BUN/Creat Ratio 17.4 RATIO (10-20); Calcium,Total 9.7 mg/dL (8.5-10.1); Chloride 102 mmol/L (98-107); Creatinine, Serum 0.98 mg/dL (0.70-1.30); EST Glomerular Filtration Rate 77 mL/min (>60); Est Glom Filt Rate - Afr Amer 93 mL/min (>60); Globulin 4.4 g/dL (2.2-4.2); Glucose 163 mg/dL (74-106); Potassium 4.5 mmol/L (3.5-5.1); Protein, Total 7.5 g/dL (6.4-8.2); Sodium Level 136 mmol/L (136-145)
== END | disposition home or self-care (01) ==
LOC: BIMLAB 10:22
PROVIDERS: PCP Internal Medicine; Referring Provider Physician Assistant; Visit Provider Physician Assistant
DX: R53.83 Other fatigue (principal); E03.8 Other specified hypothyroidism; R73.9 Hyperglycemia, unspecified
CPT/HCPCS: 36415; 80053; 83036; 84439; 84443; 85025

== ENCOUNTER → 2023-03-19 | Outpatient (CLI) | payer MEDICARE, SELFPAY ==
[2023-03-19 11:09] LABS: Bacteria 0 SEEN /hpf (None Seen); Mucous, Urine 0 SEEN /hpf (<or=2+); Red Blood Cells-Urine 0 SEEN /hpf (0-5); Squamous Epithelial Cells - UA 0 SEEN /hpf (0-5)
[2023-03-19 12:23] LABS: Color, Urine Yellow (Yellow); Glucose, Dipstick Normal (Normal); Ketone-Dipstick Negative (Negative); Leukocyte Esterase-Dipstick 25 /ul (Negative); Nitrite-Dipstick Negative (Negative); Occult Blood-Urine Negative /ul (Negative); Protein-Dipstick 15 mg/dl (Negative); Urine Bilirubin Dipstick Negative (Negative); Urine Clarity Clear (Clear); Urine Urobilinogen Normal (Normal)
[2023-03-19 12:31] LABS: White Blood Cells 0-5 SEEN /hpf (0-5)
== END | disposition home or self-care (01) ==
LOC: LABSPEC 11:08
PROVIDERS: PCP Internal Medicine; Referring Provider Physician Assistant; Visit Provider Physician Assistant
DX: N40.0 Benign prostatic hyperplasia without lower urinary tract symptoms (principal)
CPT/HCPCS: 81001

== ENCOUNTER → 2023-06-05 | Outpatient (CLI) | payer MEDICARE, SELFPAY ==
--- OUTSIDE RECORDS SUMMARY | 2023-06-05 09:54 | XMS RPT_ITS | CCD ---
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 Name Role Phone CHELSEA, BRITTNI Unavailable Unavailable CHELSEA, BRITTNI Unavailable Unavailable CHELSEA, BRITTNI Unavailable Unavailable CHELSEA, BRITTNI Unavailable Unavailable CHELSEA, BRITTNI Unavailable Unavailable CHELSEA, BRITTNI Unavailable Unavailable EDILIA SALAS MD Admitting Unavailable EDILIA SALAS MD Attending Unavailable EDILIA SALAS MD Primary Care Unavailable EDILIA SALAS MD Attending Unavailable EDILIA SALAS MD Primary Care Unavailable EDILIA SALAS MD Admitting Unavailable Unavailable Primary Care Provider UnavailPAM Jasso Attending Unavailable Allergies Allergy Classification Reported Allergen(s) Allergy Type Date of Onset Reaction(s) Facility (2 sources) HYDROcodone; Translations: [HYDROCODONE] Drug Allergy 08-25-2008 [facility] Rep[facility] (2 sources) metroNIDAZOLE; Translations: [METRONIDAZOLE] Drug Allergy 08-25-2008 [facility] (2 sources) terazosin; Translations: [TERAZOSIN] Drug Allergy 08-25-2008 [facility] (1 source) doxazosin; Translations: [DOXAZOSIN] Drug Allergy 07-25-2008 [facility] Medications Completed/Discontinued Medications Medication Drug Class(es) Dates Sig (Normalized) Sig (Original) aspirin 81 mg delayed release oral tablet (1 source) Platelet Aggregation Inhibitor, Nonsteroidal Anti-inflammatory Drug Start: 11-30-2012 aspirin, enteric coated (ECOTRIN LOW STRENGTH) 81 mg EC tablet Take 1 tablet by mouth as needed (when patient remembers). 0 11/30/2012 Active Problems Active Problems Problem Classification Problem Date Documented Date Episodic/Chronic Cataract (1 source) Bilateral pseudophakia; Translations: [Presence of intraocular lens] Onset: 10-25-2015 10-25-2015 Chronic Diabetes mellitus without complication (1 source) Hyperglycemia, unspecified; Translations: [Hyperglycemia, unspecified] Onset: 09-12-2020 Episodic Esophageal disorders (1 source) Gastroesophageal reflux disease; Translations: [Gastro-esophageal reflux disease without esophagitis] Onset: 06-15-2017 06-15-2017 Chronic Hyperplasia of prostate (1 source) Benign prostatic hypertrophy with outflow obstruction; Translations: [Benign prostatic hyperplasia with lower urinary tract symptoms] Onset: 10-26-2008 10-26-2008 Chronic Nonspecific chest pain (1 source) Chest discomfort; Translations: [Other chest pain] 03-06-2023 Episodic Other eye disorders (1 source) Vitreous floaters; Translations: [Other vitreous opacities, unspecified eye] Onset: 09-10-2015 09-10-2015 Chronic Retinal detachments; defects; vascular occlusion; and retinopathy (2 sources) Bilateral degeneration of macula; Translations: [Unspecified macular degeneration] Onset: 09-10-2015 09-10-2015 Chronic Unclassified (2 sources) Unknown / UNK(Unknown) Onset: 06-10-2017 Past or Other Problems Problem Classification Problem Date Documented Da te Episodic/Chronic Abdominal hernia (1 source) Bilateral recurrent inguinal hernia; Translations: [Bilateral inguinal hernia, without obstruction or gangrene, recurrent] Onset: 10-27-2012 10-27-2012 Episodic Blindness and vision defects (2 sources) Hypermetropia; Translations: [Hypermetropia, unspecified eye] Onset: 11-15-2015 11-15-2015 Episodic Deficiency and other anemia (1 source) Nutritional anemia; Translations: [Nutritional anemia, unspecified] Onset: 10-27-2012 10-27-2012 Episodic Genitourinary symptoms and ill-defined conditions (1 source) Retention of urine; Translations: [Retention of urine, unspecified] Onset: 08-10-2008 08-10-2008 Episodic Hemorrhoids (1 source) Internal hemorrhoids; Translations: [Other hemorrhoids] Onset: 07-27-2008 07-27-2008 Episodic Other eye disorders (1 source) 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; Translations: [Epiphora due to excess lacrimation, right lacrimal gland] Onset: 11-15-2015 11-15-2015 Episodic Other male genital disorders (1 source) Other hydrocele; Translations: [Other hydrocele] Onset: 06-10-2017 Episodic Other male genital disorders (1 source) Disorder of male genital organ; Translations: [Hydrocele, unspecified] Onset: 11-11-2012 11-11-2012 Episodic Results Test Name Value Interpretation Reference Range Facil ity Encounters Encounter Date Encounter Type Care Provider Facility Start: 03-06-2023 End: 03-06-2023 ambulatory PAM KIKI Facility:[facility] Start: 03-06-2023 End: 03-06-2023 Patient encounter procedure Pam William PET 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 Work Phone: [facility] Plan of Treatment Date Care Activity Detail Author Start: 12-05-2022 Covid-19 Vaccine () Covid-19 Vaccine () [facility] Start: 12-05-2022 Influenza vaccination Influenza Vacc ine (#1) [facility] Start: 04-06-2022 Advance Directive Discussion Advance Directive Discussion [facility] Start: 04-06-2022 Depression Assessment Depression Ass essment [facility] Start: 06-15-2020 Diabetes Screening Diabetes Screenin g [facility] Start: 10-07-2015 Urine microalbumin profile DTaP,Tdap,Td Vaccine (1 - Tdap) [facility] Start: 09-28-2000 Pneumococcal Vaccine : 65+ (1 - PCV) Pneumococcal Vaccine: 65+ (1 - PCV) [facility] Start: 1995 RSV Vaccine (1 - 1-d ose 60+ series) RSV Vaccine (1 - 1-dose 60+ series) [facility] Start: 09-28-1985 Shingrix Vaccine (1 of 2) Shingrix V accine (1 of 2) [facility] Payers Date Payer Category Payer Medicare [id number] 2000 Medicare MEDICARE MEDICAR E A AND B [id number] 2000-Present [phone] [place] [address] Medicare [id number] 1935 Unknown [id number] 1935 Unknown [id number] Social History Date Type Detail Facility Start: 06-18-2017 Tobacco smoking stat us MSIS Never smoked tobacco [facility] Work Phone: Start: 06-18-2017 Tobacco use and exposure Smokeless tobacco non-user [facility] Work Phone: Start: 11-01-2018 Alcohol intake 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 No ETS since. [facility] Start: 1935 Sex Assigned At Not on file C [facility] Progress note 03-06-2023 Note Date & Type Note Facility 03-06-2023 Note HNO ID: [id number] Author: Pam William APRN.MANNEQUIN MOLD MAKER Service: ? Author Type: Nurse Practitioner Type: Progress Notes Filed: 03/06/2023 1:16 PM Note Text: Patient came in with complaints of 2 weeks of lightheadedness chest pressure shortness of breath. Patient said about 15 years ago he was was to go in for heart procedure and never did and that is the only cardiac history he has per patient. At this time due to patient's symptoms patient is being referred to the emergency room for full evaluation. Patient wants to take himself. [facility] History of Present illness Narrative 03-06-2023 Pam William APRN.MANNEQUIN MOLD MAKER - 03/06/2023 1:15 PM EST Note Date & Type Note Facility 03-06-2023 History of Presen t illness Narrative Patient came in with complaints of 2 weeks of lightheadedness chest pressure shortness of breath. Patient said about 15 years ago he was was to go in for heart procedure and never did and that is the only cardiac history he has per patient. At this time due to patient's symptoms patient is being referred to the emergency room for full evaluation. Patient wants to take himself. documented in this encounter [facility] History of Past illness Narrative 10-25-2015 Note Date & Type Note Facility documented as of this encounter (statuses as of 03/06/2023) [facility] Evaluation note Note Date & Type Note Facility documented in this encounter [facility] Summary Purpose Family History No Family History Records FoundNo Family History Records FoundNo Family History Records FoundNo Family History Records FoundNo Family History Records FoundNo Family History Records Found Advance Directives No Advanced Directives Records FoundDocuments on File Type Date Recorded 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 Advance Directive(s) 12/05/2008 Advance Directive(s) 05/21/2006 Additional Source Comments (unrecognized sect ion and content) No Status Records FoundNo Status Records FoundNo Status Records FoundNo Status Records FoundNo Status Records FoundNo Status Records Found INFORMATION SOURCE (unrecogn ized section and content) DATE CREATED AUTHOR AUTHOR'S ORGANIZ ATION 09/25/2017 [facility] DATE CREATED AUTHOR AUTHOR'S ORGANIZ ATION 09/25/2017 [facility] DATE CREATED AUTHOR AUTHOR'S ORGANIZ ATION 09/15/2020 [facility] DATE CREATED AUTHOR AUTHOR'S ORGANIZ ATION 10/01/2020 [facility] DATE CREATED AUTHOR AUTHOR'S ORGANIZ ATION 03/09/2023 [facility] Source Comments (unrecognize d section and content) In the event this informatio n is protected by the Federal Confidentiality of Alcohol and Drug Abuse Patient Records regulations: The Federal rules restrict any use of the information to criminally investigate or prosecute any alcohol or drug abuse patient.[facility] FOR RECORDS PERTAINING TO PATIENTS WHO ARE OR HAVE BEEN ENROLLED IN A CHEMICAL DEPENDENCY/SUBSTANCEABUSE PROGRAM, SOME INFORMATION MAY BE OMITTED. This clinical summary was aggregated from multiple sources. Caution should be exercised in using it in the provision of clinical care. This summary normalizes information from multiple sources, and as a consequence, information in this document may materially change the coding, format and clinical context of patient data. In addition, data may be omitted in some cases. CLINICAL DECISIONS SHOULD BE BASED ON THE PRIMARY CLINICAL RECORDS. [facility]. provides no warranty or guarantee of the accuracy or completeness of information in this document.
[2023-06-05 12:44] LABS: T4 Total, Thyroxin 6.3 ug/dL (4.5-12.1); Thyroid Stim Hormone (TSH) 4.08 uIU/mL (0.358-3.74)
== END | disposition home or self-care (01) ==
LOC: BIMLAB 09:37
PROVIDERS: PCP Internal Medicine; Visit Provider Physician Assistant
DX: E03.9 Hypothyroidism, unspecified (principal)
CPT/HCPCS: 36415; 84436; 84443

== ENCOUNTER → 2023-08-20 | Outpatient (CLI) | payer MEDICARE, SELFPAY ==
[2023-08-20 12:26] LABS: Erythrocyte Sedimentation Rate 13 mm/hr (0-20)
[2023-08-20 12:28] LABS: Absolute Lymphocyte Count 1.72 X10^3/uL (0.83-4.51); Absolute Neutrophil Count 3.7 X10^3/uL (2.0-7.7); Basophil# 0.04 X10^3/uL; Basophil% 0.7 % (0-1); Eosinophil# 0.03 X10^3/uL; Eosinophils% 0.5 % (0-5); Hematocrit 42.1 % (40-54); Hemoglobin 13.3 g/dL (13.0-16.5); Lymphocyte # 1.72 X10^3/ul (0.83-4.51); Lymphocyte % 28.6 % (19-41); Mean Corp Hgb Conc 31.6 g/dL (32-36); Mean Corpuscular Hgb 30.6 pg (27.0-32.0); Mean Corpuscular Volume 96.8 fL (80-94); Mean Platelet Vol. 11.1 fl (6.2-12.0); Monocyte# 0.51 X10^3/uL; Monocyte% 8.5 % (0-10); NRBC Flagged by Analyzer 0 % (0-5); Neutrophil % 61.5 % (47-70); Platelet Count 225 K/mm3 (150-450); RBC Distribution Width CV 14.3 % (11.6-14.6); RBC Distribution Width SD 50.6 fl (35.1-43.9); Red Blood Count 4.35 M/mm3 (4.6-6.2)
[2023-08-20 13:23] LABS: ALB/GLOB Ratio 0.9 RATIO (0.9-2.4); AST(SGOT) 23 U/L (15-37); Alanine Aminotransfer ALT/SGPT 31 U/L (16-61); Albumin, Serum 3.6 g/dL (3.2-5.0); Alkaline Phosphatase 87 U/L (45-117); Anion Gap 4 (5-15); BUN 14 mg/dL (7-18); BUN/Creat Ratio 16.2 RATIO (10-20); CRP < 2.90 mg/L (0.0-3.0); Calcium,Total 9.6 mg/dL (8.5-10.1); Chloride 104 mmol/L (98-107); Creatinine, Serum 0.87 mg/dL (0.70-1.30); EST Glomerular Filtration Rate 89 mL/min (>60); Est Glom Filt Rate - Afr Amer 107 mL/min (>60); Globulin 3.8 g/dL (2.2-4.2); Glucose 100 mg/dL (74-106); Potassium 5.3 mmol/L (3.5-5.1); Protein, Total 7.4 g/dL (6.4-8.2); Sodium Level 139 mmol/L (136-145)
[2023-08-21 14:09] LABS: Lyme Scn Total Ab w/Rflx Negative (Negative)
== END | disposition home or self-care (01) ==
LOC: BIMLAB 11:41
PROVIDERS: PCP Internal Medicine; Visit Provider Nurse Practitioner
DX: R59.0 Localized enlarged lymph nodes (principal); W57.XXXA Bitten or stung by nonvenomous insect and other nonvenomous arthropods, initial encounter
CPT/HCPCS: 36415; 80053; 85025; 85652; 86140; 86618

== ENCOUNTER 2023-12-26 15:19 | Emergency (ER) | payer MEDICARE, SELFPAY ==
[2023-12-26 15:20] VITALS: BP 131/96; PULSE 85; RESP 16; TEMP 36.6; O2SAT 97; BMI 16.2
--- NOTE | 2023-12-26 15:37 | CT_ITS ---
STUDY: CT ABDOMEN AND PELVIS WITH CONTRAST REASON FOR EXAM: Male, 88 years old. LLQ abd pain ?? hernia RADIATION DOSAGE (If Supplied By Facility): CTDIvol = ( 10.9 ) mGy, DLP = ( 306.4 ) mGycm TECHNIQUE: Transaxial images were obtained from the dome of the diaphragm to the symphysis pubis without oral contrast. IV 100mL Isovue-370 was administered. Sagittal and coronal images were reconstructed. Individualized dose optimization techniques were used for this CT. COMPARISON: None. FINDINGS: Some left lower lobe discoid atelectasis. The visualized portions of the heart are within normal limits. Normal liver. Normal gallbladder and extrahepatic biliary system. Normal spleen. Normal pancreas. Normal bilateral adrenal glands. Normal right kidney. Normal left kidney. Normal visualized stomach. Normal small intestine. Normal colon. The appendix is visualized and appears normal. Normal abdominal aorta. Normal inferior vena cava. Normal retroperitoneum. Normal urinary bladder. Normal abdominal wall. Normal osseous structures. CT/Abdomen/Pelvis W IV Cont ONLY IMPRESSION: Normal enhanced CT of the abdomen and pelvis. Electronically Signed: Carlos Pagan MD at 17:16 EDT ,
--- NOTE | 2023-12-26 15:41 | EDS_ITS ---
HPI History of Present Illness Chief Complaint: Male Pain/Injury Informant: patient Pain Onset: Days Context: Gradual Onset Timing: Continuous Current Severity: Mild Maximum Severity: Mild Narrative Narrative: 88-year-old male history of diabetes and prior right sided hydrocele. States has had left groin discomfort believes he has a recurrent hernia for the last week. Denies vomiting or diarrhea. Denies abdominal pain. He does have some tenderness in his left scrotum. Denies any dysuria. He is having bowel m ovements. Denies any trauma. No fever. Prior similar symptoms: No Recent Illness/Hospitalization: No PFSH PFSH Medical History Hypertension Cramps, extremity Borderline type 2 diabetes mellitus Elevated blood sugar level Subclinical hypothyroidism Wears dentures Wears glasses Bruising Prostate disease High cholesterol Back pain Easy bruising History of IBS Non-smoker Hoarseness Chronic cough Leg cramps History of stress test Chest pain Epigastric pain Nausea Abdominal pain Hemorrhoids Constipation Cough SOB (shortness of breath) Anxiety Heart murmur Arthritis Dysphagia Fatigue Weight loss Home Medications ?Medication ?Instructions ?Recorded ?Last Taken ?Type levothyroxine 25 mcg capsule 25 mcg PO DAILY #90 caps 06/22/23 Unknown Rx Allergy/AdvReac Type Severity Reaction Status Date / Time levothyroxine Allergy Severe chest pain Verified 12/26/23 15:20 carbamazepine (From Tegretol) Allergy Unknown YBARRA, PAIN Verified 12/26/23 15:20 ALL OVER, CAN'T FEEL, I WAS ALMOST levofloxacin Allergy Rash Verified 12/26/23 15:20 pravastatin Allergy Rash Verified 12/26/23 15:20 omeprazole (From Prilosec) AdvReac Intermediate Upset Verified 12/26/23 15:20 Stomach Family History Son , unknown cancer- @ 50 Cancer Other Abdominal pain Dysphagia Surgical History History of surgery Hx of colonoscopy History of esophagogastroduodenoscopy (EGD) Hydrocele in adult Hx of left inguinal hernia repair Hx of bilateral inguinal hernia repair Hx of hemorrhoidectomy H/O eye surgery Social History Smoking Status: Never smoker second hand exposure: No alcohol intake: never substance use type: does not use caffeine: Yes what type of physical activity do you participate in: walking frequency: daily seatbelt use: always ROS ROS ED ROS Narrative Denies recent illness. Constitutional Constitutional ED: Denies chills or fever(s) Eyes Eyes: Denies blurry vision ENT ENT ED: Denies ear pain Cardiovascular Cardiovascular: Denies chest pain Respiratory/Chest Respiratory/Chest: Denies cough or dyspnea Gastrointestinal Gastrointestinal: Reports other Details: Left groin discomfort. ; Denies abdominal pain Genitourinary Genitourinary ED: Denies dysuria or hematuria Musculoskeletal Musculoskeletal: Denies arthralgias Integumentary Denies abscess Neurologic Neurologic: Denies headache(s) Psychiatric Psychiatric: Denies anxiety or depression Endocrine Endocrinology: Denies polydipsia Hematologic/Lymphatic Hematologic/Lymphatic: Denies easy bleeding Allergic/Immunologic Allergic/Immunologic ED: Denies mouth swelling EXAM Physical Exam Narrative Exam Narrative: 88-year-old male no acute distress. Vital signs stable afebrile. H EENT exam unremarkable. Neck nontender. Lungs clear to auscultation bilaterally. Heart regular rhythm rate about 80. Chest wall nontender. Abdomen soft nontender. No distention or signs of obstruction. No peritoneal signs. He does have mild left inguinal canal tenderness. There appears to be a's note hernia in the left inguinal canal. It does not appear to be obstructed or strangulated. He has mild left scrotal tenderness. There is no redness. No warmth. There is no abscess. Uncircumcised male. Right hemiscrotum is nontender or swollen. Moving all 4 extremities. Nontender no edema. He is awake and alert. Const Vital Signs: 12/26/23 15:20 12/26/23 16:40 12/26/23 17:00 Temperature 98 F Temperature Source Oral Pulse Rate 85 89 99 Respiratory Rate 16 18 18 Blood Pressure 131/96 H 148/97 H 148/97 H Blood Pressure Mean 107 114 114 Pulse Ox 97 92 98 Oxygen Delivery Method Room Air Positive well nourished and well developed; Negative for obese, cachectic, contractures or unkempt General Appearance ED: well developed and NAD; Negative for unkempt, cachectic, contractures or pallor Nutritional Appearance: Negative for cachectic or obese HEENT Reports moist mucous membranes normocephalic and atraumatic; Negative for trauma or tenderness Eyes PERRL and EOMs intact bilaterally General Eye ED: Negative for pale conjunctiva or scleral icterus Neck no lymphadenopathy, supple and no JVD General: Negative for tenderness Resp normal respiratory effort and clear to auscultation bilaterally Effort and Inspection: Negative for retractions Auscultation: Negative for rales, rhonchi or wheezes Cardio regular rate, regular rhythm, S1 normal heart sound, S2 normal heart sound and no murmurs GI non-tender, non-distended and no masses GI Narrative: Left inguinal canal tenderness. No mass. Suspect hernia. No obstruction or strangulation. No bowel obstruction or distention. Inspection: Negative for abdominal distention Auscultation: normoactive bowel sounds Palpation: soft; Negative for tender or guarding no CVA tenderness Back/Spine no CVA tenderness Extremity normal to inspection General Extremety ED: Negative for edema or pulses abnormal General Extremity: Negative for edema or pulses abnormal Neuro oriented x3, CN's II-XII intact bilaterally, moves all extremities and no focal motor deficits Sensorium / Orientation: alert, oriented to person, oriented to place and oriented to time Motor Exam: strength 5/5 throughout Psych mental status grossly normal Appearance: Negative for unkempt Attitude: No agitated Mood & Affect: Negative for depressed, anxious or tearful Thought Process: normal thought process Thought Content: normal thought content Skin General Skin Exam: Negative for jaundice or pallor Lesions: no lesions Rashes: no rashes Trauma: Negative for abrasion or laceration MDM MDM MDM Narrative Medical decision making narrative: 80-year-old male left inguinal canal tenderness suspect recurrent inguinal hernia. He has had prior hernia repair surgeries. CAT scan and labs are p ending. At this time I do not believe it to be either incarcerated or strangulated or an acute surgical emergency. I do not see any obvious signs of bowel obstruction on exam. Repeat exam patient doing well at 5:25 PM. Abdomen benign. I went over his test results with him. Currently he does not have an incarcerated or strangulated hernia. He is got no bowel obstruction. He only has tenderness with palpation of the inguinal canal. Will be discharged home. Tylenol for pain. Follow-up with general surgery for further evaluation. He was instructed on signs and symptoms of a bowel obstruction or incarcerated hernia and when to return. History & Record Review Discussion w/independent historian: Patient Additional record(s) reviewed:: Prior inpatient record, Prior outpatient record, Prior ED visit and Prior labs Lab Data Attestation: I reviewed the patient's lab results. Lab results narrative: CBC shows a white count of 6 H&H 12.6 39.8. Platelets 235. Anemia consistent with prior labs. Chemistries show gap 6 normal BUN and creatinine. Glucose 117. Labs: Laboratory Results - last 24 hr 12/26/23 15:50 WBC 6.1 RBC 4.12 L Hgb 12.6 L Hct 39.8 L MCV 96.6 H MCH 30.6 MCHC 31.7 L RDW Std Deviation 50.4 H RDW Coeff of Cristopher 14.2 Plt Count 235 MPV 10.3 Immature Gran % (Auto) 0.200 Neut % (Auto) 66.5 Lymph % (Auto) 22.7 [place] % (Auto) 9.6 Eos % (Auto) 0.3 Baso % (Auto) 0.7 Absolute Neuts (auto) 4.0 Absolute Lymphs (auto) 1.38 Nucleated RBC % 0 Sodium 138 Potassium 3.8 Chloride 100 Carbon Dioxide 32.0 Anion Gap 6 BUN 17 Creatinine 1.03 Estim Creat Clear Calc 30.91 Est GFR (MDRD) Af Amer 88 Est GFR (MDRD) Non-Af 72 BUN/Creatinine Ratio 16.5 Glucose 117 H Calcium 9.7 Radiography Diagnostic Testing: Clinical Impression(s) from Imaging Studies Abdomen/Pelvis CT 12/26/23 15:37 IMPRESSION: Normal enhanced CT of the abdomen and pelvis. Electronically Signed: Carlos Pagan MD at 17:16 EDT , Discharge Plan Triage Chief Complaint: Male Pain/Injury ED Provider: Emanuel Flores Dx/Rx/DC Orders Clinical Impression: Abdominal pain, Inguinal hernia, History of diabetes mellitus Instructions: Abdominal Pain Prescriptions: No Action levothyroxine 25 mcg capsule 25 mcg PO DAILY Qty: 90 1RF Rx Instructions: TAKE FIRST THING AM WITH ONLY WATER - NO OTHER INTAKE FOR 45 MINUTEs Primary Care Provider: Santino Morillo Referrals: Santino Morillo MD [Primary Care Provider] - Jean-Pierre Whitehead MD [Med Staff - Active Staff] - As soon as possible Activity Restrictions/Additional Instructions: Follow-up with general surgery to be evaluated for a possible inguinal hernia. Your labs and CAT scan were unremarkable. Outpatient follow-up. Spektor Tylenol for pain. Return if any signs of bowel obstruction where your abdomen gets really distended. You are throwing up. Print Language: Nauruan Disposition Disposition: Home, Self Care
[2023-12-26 15:56] LABS: Absolute Lymphocyte Count 1.38 X10^3/uL (0.83-4.51); Basophil# 0.04 X10^3/uL; Basophil% 0.7 % (0-1); Eosinophil# 0.02 X10^3/uL; Eosinophils% 0.3 % (0-5); Hematocrit 39.8 % (40-54); Hemoglobin 12.6 g/dL (13.0-16.5); Lymphocyte # 1.38 X10^3/ul (0.83-4.51); Lymphocyte % 22.7 % (19-41); Mean Corp Hgb Conc 31.7 g/dL (32-36); Mean Corpuscular Hgb 30.6 pg (27.0-32.0); Mean Corpuscular Volume 96.6 fL (80-94); Mean Platelet Vol. 10.3 fl (6.2-12.0); Monocyte# 0.58 X10^3/uL; Monocyte% 9.6 % (0-10); NRBC Flagged by Analyzer 0 % (0-5); Neutrophil # 4.04 X10^3/uL (2.7-7.7); Neutrophil % 66.5 % (47-70); Platelet Count 235 K/mm3 (150-450); RBC Distribution Width CV 14.2 % (11.6-14.6); RBC Distribution Width SD 50.4 fl (35.1-43.9); Red Blood Count 4.12 M/mm3 (4.6-6.2); White Blood Count 6.1 K/mm3 (4.4-11.0)
[2023-12-26 16:14] LABS: Anion Gap 6 (5-15); BUN 17 mg/dL (7-18); BUN/Creat Ratio 16.5 RATIO (10-20); Calcium,Total 9.7 mg/dL (8.5-10.1); Chloride 100 mmol/L (98-107); Creatinine, Serum 1.03 mg/dL (0.70-1.30); EST Glomerular Filtration Rate 72 mL/min (>60); Est Glom Filt Rate - Afr Amer 88 mL/min (>60); Estimated Creatinine Clearance 30.91 ml/min; Glucose 117 mg/dL (74-106); Potassium 3.8 mmol/L (3.5-5.1); Sodium Level 138 mmol/L (136-145)
[2023-12-26 16:40] VITALS: BP 148/97; PULSE 89; RESP 18; O2SAT 92
[2023-12-26 17:00] VITALS: BP 148/97; PULSE 99; RESP 18; O2SAT 98
[2023-12-26 17:26] VITALS: BP 154/79; PULSE 78; RESP 16; TEMP 36.7; O2SAT 98
== END 2023-12-26 17:41 | disposition home or self-care (01) ==
PROVIDERS: Emergency Provider Emergency Medicine; PCP Internal Medicine; Visit Provider Emergency Medicine
DX: K40.91 Unilateral inguinal hernia, without obstruction or gangrene, recurrent (principal); E11.9 Type 2 diabetes mellitus without complications
CPT/HCPCS: 74177; 80048; 85025; 99283; Q9967; A4216

== ENCOUNTER → 2024-01-06 | Outpatient (CLI) | payer MEDICARE, SELFPAY ==
[2024-01-06 09:50] LABS: Hematocrit 39.2 % (40-54); Hemoglobin 12.4 g/dL (13.0-16.5); Mean Corp Hgb Conc 31.6 g/dL (32-36); Mean Corpuscular Hgb 30.5 pg (27.0-32.0); Mean Corpuscular Volume 96.6 fL (80-94); Mean Platelet Vol. 10.5 fl (6.2-12.0); Platelet Count 243 K/mm3 (150-450); RBC Distribution Width CV 14.3 % (11.6-14.6); RBC Distribution Width SD 51.4 fl (35.1-43.9); Red Blood Count 4.06 M/mm3 (4.6-6.2); White Blood Count 5.6 K/mm3 (4.4-11.0)
[2024-01-06 11:23] LABS: ALB/GLOB Ratio 0.8 RATIO (0.9-2.4); AST(SGOT) 20 U/L (15-37); Alanine Aminotransfer ALT/SGPT 17 U/L (16-61); Albumin, Serum 3.2 g/dL (3.2-5.0); Alkaline Phosphatase 83 U/L (45-117); Anion Gap 8 (5-15); BUN 13 mg/dL (7-18); BUN/Creat Ratio 12.9 RATIO (10-20); Calcium,Total 9.2 mg/dL (8.5-10.1); Chloride 102 mmol/L (98-107); Cholesterol 240 mg/dL (200); Creatinine, Serum 1.01 mg/dL (0.70-1.30); EST Glomerular Filtration Rate 74 mL/min (>60); Est Glom Filt Rate - Afr Amer 90 mL/min (>60); Globulin 4.2 g/dL (2.2-4.2); Glucose 184 mg/dL (74-106); High Density Lipoprotein 89 mg/dL; Magnesium 2.2 mg/dL (1.6-2.6); Potassium 4.2 mmol/L (3.5-5.1); Protein, Total 7.4 g/dL (6.4-8.2); Sodium Level 136 mmol/L (136-145); Triglycerides 127 mg/dL; Very Low Density Lipoprotein 25 mg/dL (5-40)
== END | disposition home or self-care (01) ==
PROVIDERS: PCP Internal Medicine; Referring Provider Internal Medicine Cardiovascular Disease; Visit Provider Internal Medicine Cardiovascular Disease
DX: I10 Essential (primary) hypertension (principal); I25.10 Atherosclerotic heart disease of native coronary artery without angina pectoris; G43.909 Migraine, unspecified, not intractable, without status migrainosus; R42 Dizziness and giddiness; R06.02 Shortness of breath; R06.09 Other forms of dyspnea; R94.6 Abnormal results of thyroid function studies; D64.9 Anemia, unspecified; R73.03 Prediabetes
CPT/HCPCS: 36415; 80053; 80061; 83735; 84443; 85027

== ENCOUNTER → 2024-01-14 | Outpatient (CLI) | payer MEDICARE, SELFPAY | END | disposition home or self-care (01) | PROVIDERS: PCP Internal Medicine; Referring Provider Internal Medicine Cardiovascular Disease; Visit Provider Internal Medicine Cardiovascular Disease | DX: I25.10 Atherosclerotic heart disease of native coronary artery without angina pectoris (principal); R06.09 Other forms of dyspnea; R53.83 Other fatigue; R06.02 Shortness of breath | CPT/HCPCS: 93225; 93226 ==

== ENCOUNTER → 2024-01-19 | Outpatient (CLI) | payer MEDICARE, SELFPAY ==
--- NOTE | 2024-01-19 06:51 | ECHOD_ITS ---
Reason For Study: Dyspnea/SOB Procedure This was a 2D Doppler, Color Flow transthoracic echocardiogram. Exam performed in department. Left Ventricle Normal size and thickness. The left ventricular ejection fraction is 65 %. Diastolic function is indeterminate. Right Ventricle Normal right ventricle. Atria There is mild biatrial dilatation. Mitral Valve Mild-Moderate (1-2+) mitral valve insufficiency. Tricuspid Valve Moderate (2+) tricuspid valve insufficiency. Right ventricular systolic pressure estimated to be 52 mmHg. Aortic Valve Mild diffuse aortic valve thickening. Trisinus/trileaflet aortic valve. Mild-Moderate (1-2+) aortic valve insufficiency. Pulmonic Valve The pulmonic valve is not well visualized. Trivial pulmonic valve insufficiency. Great Vessels Normal aortic root. Pericardium/Pleural No pericardial effusion. MMode/2D Measurements & Calculations LVIDd: 3.7 cm IVSd: 1.1 cm LVOT diam: 2.1 cm LVIDs: 2.3 cm LVPWd: 0.87 cm LVOT area: 3.3 cm2 RVDd: 3.7 cm FS: 39.2 % Ao root diam: 3.0 cm LAV(MOD-bp): 47.7 ml LVAd ap4: 23.5 cm2 LA dimension: 2.9 cm LAV(MOD-bp) Indexed: 33.1 ml/m2 LVLd ap4: 6.8 cm LAV(MOD-sp2): 38.0 ml EDV(MOD-sp4): 65.0 ml LAV(MOD-sp4): 49.9 ml EDV(sp4-el): 68.7 ml LVAs ap4: 12.4 cm2 LVLs ap4: 5.9 cm ESV(MOD-sp4): 21.3 ml ESV(sp4-el): 22.3 ml EF(MOD-sp4): 67.2 % EF(sp4-el): 67.6 % SV(MOD-sp4): 43.7 ml SV(sp4-el): 46.4 ml LA A4 area: 18.4 cm2 RA A4 area: 14.6 cm2 TAPSE: 2.2 cm Time Measurements MV dec time: 0.18 sec Doppler Measurements & Calculations MV E max miguel: 105.9 cm/sec Lat Peak E' Miguel: 9.2 cm/sec Med Peak E' Miguel: 10.1 cm/sec MV A max miguel: 65.3 cm/sec E/E' lat: 11.6 E/E' med: 10.5 MV E/A: 1.6 MV V2 max: 134.2 cm/sec Ao V2 max: 116.9 cm/sec MV max P.2 mmHg MV dec slope: 584.7 cm/sec2 Ao max P.5 mmHg MV V2 mean: 54.1 cm/sec Ao V2 mean: 80.5 cm/sec MV mean P.7 mmHg Ao mean P.0 mmHg MV V2 VTI: 34.2 cm Ao V2 VTI: 30.0 cm AV (velocity ratio): 0.75 MVA(VTI): 2.2 cm2 STEPAN(I,D): 2.5 cm2 STEPAN(V,D): 2.6 cm2 AI max miguel: 375.4 cm/sec LV V1 max: 91.8 cm/sec MR max miguel: 530.5 cm/sec AI max P.1 mmHg LV V1 max P.4 mmHg MR max P.6 mmHg LV V1 mean P.6 mmHg AI dec slope: 175.0 cm/sec2 LV V1 mean: 57.0 cm/sec AI P1/2t: 628.4 msec LV V1 VTI: 22.5 cm SV(LVOT): 74.7 ml PA V2 max: 71.3 cm/sec TR max miguel: 303.5 cm/sec PA max PG (full): 0.27 mmHg TR max P.9 mmHg ECHO/Echo Complete Interpretation Summary The left ventricular ejection fraction is 65 %. Diastolic function is indeterminate. Mild-Moderate (1-2+) mitral valve insufficiency. Moderate (2+) tricuspid valve insufficiency. Right ventricular systolic pressure estimated to be 52 mmHg. Mild diffuse aortic valve thickening. Mild-Moderate (1-2+) aortic valve insufficiency. Ordering Physician: Carolyn Taylor Referring Physician: Carolyn Taylor Performed By: Jayson Curry and Student
--- NOTE | 2024-01-21 15:44 | STRESSREP ---
Stress Test Report Date: 01/19/2024 Procedure: Pharmacologic stress nuclear imaging study Indications: Dyspnea Consent: Per the patient Procedure: The patient underwent pharmacologic (Regadenoson 0.4mg ) evaluation with a peak heart rate of 78 beats per minute (59%predicted maximal heart rate) and a peak blood pressure of 122/70 mmHg. The baseline ECG demonstrated sinus rhythm with frequent PVCs. The peak pharmacologic ECG demonstrated no diagnostic ischemic changes. Frequent PVCs noted pretest during pharmacologic infusion and in recovery. There was no complaint of chest discomfort during pharmacologic infusion or recovery. The patient was injected with 10.9 millicuries of technetium 99m Cardiolite and subsequently rest SPECT Cardiolite nuclear imaging was obtained in the horizontal long, vertical long, and short axis views. The patient underwent pharmacologic (Regadenoson) evaluation. The patient was injected with 32.4 millicuries of technetium 99m Cardiolite and subsequently stress SPECT Cardiolite nuclear imaging was obtained in the horizontal long, vertical long, and short axis views. A gated Cardiolite study at peak stress was obtained. The examination was stopped secondary to completion of protocol. Rest and stress SPECT Cardiolite nuclear imaging status post realignment, normalization, and attenuation correction demonstrate no fixed or reversible perfusion defects. There is end systolic thickening and brightening. The gated Cardiolite study demonstrates myocardial thickening and inward wall motion. The reported LVEF is 86%. Impression: 1. Pharmacologic (Regadenoson) evaluation 2. Peak pharmacologic ECG with no diagnostic ischemic changes. 3. Frequent PVCs noted at baseline, during pharmacologic infusion and in recovery. 5. Rest and stress SPECT Cardiolite nuclear imaging demonstrate relative uniform tracer uptake and myocardial perfusion appearing within normal limits. 6. The gated Cardiolite study reports an LVEF of 86%. This note was generated with [email or web address] software. It may contain incorrect words, spelling, and punctuation that were not noted in checking the note before signing.
== END | disposition home or self-care (01) ==
LOC: CVS 06:50
PROVIDERS: PCP Internal Medicine; Referring Provider Internal Medicine Cardiovascular Disease; Visit Provider Internal Medicine Cardiovascular Disease
DX: I25.10 Atherosclerotic heart disease of native coronary artery without angina pectoris (principal); I10 Essential (primary) hypertension; R06.02 Shortness of breath; R06.09 Other forms of dyspnea; R42 Dizziness and giddiness; R53.83 Other fatigue
CPT/HCPCS: 78452; 93017; 93306; A9500; A4216; J2785

== ENCOUNTER → 2024-02-22 | Outpatient (CLI) | payer MEDICARE, SELFPAY ==
[2024-02-22 13:20] LABS: Hemoglobin A1c 6.1 % (3.8-5.6)
[2024-02-23 12:10] LABS: Carbohydrate Ag 19-9 2261 507 U/mL (0-35)
== END | disposition home or self-care (01) ==
LOC: BIMLAB 10:36
PROVIDERS: PCP Internal Medicine; Visit Provider Internal Medicine
DX: R73.03 Prediabetes (principal); R97.8 Other abnormal tumor markers; E03.8 Other specified hypothyroidism
CPT/HCPCS: 36415; 83036; 84443; 86301

== ENCOUNTER 2024-02-26 08:18 | Outpatient (CLI) | payer MEDICARE, SELFPAY ==
--- NOTE | 2024-02-26 08:24 | US_ITS ---
EXAM: US SCROTUM CLINICAL INDICATION: Elevated CA 19 - 9 -- Scrotum/Testicles. TECHNIQUE: Realtime ultrasound of the testicles was performed with grayscale and Color Doppler analysis. COMPARISON: CT December 26, 2023 showing mildly thick band of opacity in the left lung base, prominent colon contents, prostatomegaly, at least moderate left hydrocele. FINDINGS: RIGHT TESTICLE: Unremarkable. 4.6 cm x 3.3 cm x 2 cm. Normal in size and echotexture with the exception of slightly heterogeneous echogenicity.. No focal lesion. Normal blood flow is present. LEFT TESTICLE: 4.2 cm x 2.7 cm x 2.6 cm. Normal in size and echotexture. No focal lesion. Normal blood flow is present, with the exception of mildly increased vascularity compared to the right testis, nonspecific. EPIDIDYMIDES: No suspicious findings. Small echogenic 3.4 mm structure in the left epididymal tail, presumed calcification, also seen on prior CT Right epididymal head 0.8 cm x 1.2 cm x 0.7 cm. Left epididymal head 7 mm x 7 mm x 1 cm with 3 mm cyst or spermatocele. Normal in size and echotexture, without focal lesion. Normal color Doppler flow pattern in the epididymis. SCROTUM: Mild scrotal wall thickening in the midline, estimated to be at least 9 cm in length. Moderate left hydrocele appears fairly simple. No varicocele. US/Testicular with Arterial Flow IMPRESSION: No evidence of testicular mass or torsion. Symmetric size of testes. Moderate left hydrocele, also seen on prior CT December 26, 2023. Electronically Signed: Jenae Sherman MD at 2:46 EST ,
== END 2024-02-26 23:59 | disposition home or self-care (01) ==
LOC: US 08:20
PROVIDERS: PCP Internal Medicine; Referring Provider Internal Medicine; Visit Provider Internal Medicine
DX: R97.8 Other abnormal tumor markers (principal); N43.3 Hydrocele, unspecified; N50.89 Other specified disorders of the male genital organs
CPT/HCPCS: 76870; 93976

== ENCOUNTER → 2024-03-16 | Outpatient (CLI) | payer MEDICARE, SELFPAY ==
--- NOTE | 2024-03-16 15:50 | CT_ITS ---
STUDY: CT CHEST WITH CONTRAST REASON FOR EXAM: Male, 88 years old. Elevated Ca 19-9 RADIATION DOSAGE (If Supplied By Facility): CTDIvol = ( 10.69 ) mGy, DLP = ( 195.34 ) mGycm TECHNIQUE: Transaxial imaging was performed following intravenous administration of IV 100mL Isovue-300. Multiplanar coronal and sagittal images were reformatted. Individualized dose optimization techniques were used for this CT. COMPARISON: No relevant priors. FINDINGS: CHEST Dense consolidation in the posterior medial segment of the left lower lobe. This has progressed as compared to prior CT scan and pelvis dated December 26, 2023. Radiographic follow-up recommended following therapy. There is no demonstrated pleural abnormality. There are calcifications of the coronary arteries. Normal mediastinum. Normal hilar regions. Normal unenhanced pulmonary arteries. Normal aorta arch and descending thoracic aorta. Normal osseous structures. There is no demonstrated abnormality of the visualized upper abdomen. CT/Chest WITH Contrast IMPRESSION: Dense consolidation in the posterior segment of the left lower lobe. This may represent pneumonic infiltration although a mass lesion cannot be excluded. Radiographic follow-up recommended. Electronically Signed: Kurt Moyer MD at 14:25 EST ,
[2024-03-16 16:10] LABS: CREATININE FINGERSTICK < 1.0 mg/dL (0.70-1.30); EGFR FINGERSTICK > 60.0000 mL/min (>60)
== END | disposition home or self-care (01) ==
LOC: CT 15:35
PROVIDERS: PCP Internal Medicine; Referring Provider Internal Medicine; Visit Provider Internal Medicine
DX: R97.8 Other abnormal tumor markers (principal)
CPT/HCPCS: 71260

== ENCOUNTER 2024-04-08 10:56 | Inpatient (IN) | payer MEDICARE, SELFPAY ==
[2024-04-08] VITALS (14 sets, daily range): BP systolic 120–213; BP diastolic 44–98; PULSE 41–82; RESP 16–24; TEMP 36.3–37.1; O2SAT 96–100; BMI 39.2; BMI 16.5
--- NOTE | 2024-04-08 11:35 | CT_ITS ---
INDICATION: Pneumothorax EXAMINATION: CT CHEST WITHOUT CONTRAST - CT Chest W/O Contrast Injection TECHNIQUE: Helically acquired images were obtained of the chest. The protocol utilizes one or more of the following dose reduction techniques: automated exposure control, adjustment of mA and/or kV according to patient size,and/or use of iterative reconstruction technique. IV Contrast dosage and agent: None. RADIATION DOSAGE (If Supplied By Facility): CTDIvol = ( 6.07 ) mGy, DLP = ( 225.96 ) mGycm COMPARISON: Chest radiograph dated April 08, 2024 FINDINGS: LUNGS, PLEURA AND LARGE AIRWAYS: There is a moderate-sized left-sided pneumothorax. Within the left lower lobe there is a grossly stable 6.6 x 5.5 cm masslike opacity. There is a new small left pleural effusion. THYROID: No thyroid lesions. HEART AND PERICARDIUM: Heart size is normal. No pericardial effusion. CORONARY ARTERIES: Coronary artery calcification is seen. VESSELS: Thoracic aorta is not dilated. There are peripheral calcifications of the thoracic aorta. MEDIASTINUM AND HARPAL: There are calcified mediastinal and hilar lymph nodes.. Esophagus is unremarkable. No hiatal hernia. UPPER ABDOMEN: No acute pathology. BONES: No deep bones are diffusely demineralized. There are degenerative changes of the thoracic spine. CT/Chest without Contrast IMPRESSION: Moderate-sized left pneumothorax as documented on recent chest radiograph earlier today. 6.6 x 5.5 cm left lower lobe masslike opacity concerning for malignancy. Small left pleural effusion. Atherosclerosis. [employer] RECOMMENDATIONS FOR FOLLOW-UP OF SMALL SOLID LUNG NODULES DETECTED INCIDENTALLY ON CT (for PATIENTS ? 35 YEARS OF AGE with no known extra-pulmonary cancer and no clinical evidence of infection). Electronically Signed: Katie Arvizu MD at 12:17 EST ,
--- NOTE | 2024-04-08 11:37 | ED.VIS.DYS ---
HPI History of Present Illness Chief Complaint: Shortness of Breath Onset/Context/Timing Onset: Today Context: sudden Timing: Continuous Worsened by: - (Deep breathing) Relieved by: Nothing Associated Symptoms Negative for cough, rhinorrhea, fever, chills or sweats Chest Pain: Positive for Intermittent, Sharp and Pleuritic Narrative Narrative: Patient presents with shortness of breath that began today. Patient states he had a lung biopsy done today. Patient developed a pneumothorax after the biopsy. Patient states he feels short of breath. Patient admits to some pain with deep breathing. Patient states it is on the left side of his chest. Patient denies any nausea or vomiting. Patient denies any cough. Patient denies any palpitations. [facility] Medical History Lung mass Hypertension Cramps, extremity Borderline type 2 diabetes mellitus Elevated blood sugar level Subclinical hypothyroidism Wears dentures Wears glasses Bruising Prostate disease High cholesterol Back pain Easy bruising History of IBS Non-smoker Hoarseness Chronic cough Leg cramps History of stress test Chest pain Epigastric pain Nausea Abdominal pain Hemorrhoids Constipation Cough SOB (shortness of breath) Anxiety Heart murmur Arthritis Dysphagia Fatigue Weight loss Home Medications ?Medication ?Instructions ?Recorded ?Last Taken ?Type aspirin 81 mg tablet,delayed 81 mg PO QDAY #90 tabs 01/05/24 Unknown Rx release (Adult Aspirin Regimen) levothyroxine 25 mcg capsule 25 mcg PO DAILY #90 caps 01/06/24 Unknown Rx metoprolol succinate 25 mg 25 mg PO BID #180 tabs 02/09/24 Unknown Rx tablet,extended release 24 hr Allergy/AdvReac Type Severity Reaction Status Date / Time carbamazepine (From Tegretol) Allergy Unknown YBARRA, PAIN Verified 04/08/24 09:18 ALL OVER, CAN'T FEEL, I WAS ALMOST pravastatin Allergy Rash Verified 04/08/24 09:18 omeprazole (From Prilosec) AdvReac Intermediate Upset Verified 04/08/24 09:18 Stomach Family History Son Cancer Surgical History History of surgery Hx of colonoscopy History of esophagogastroduodenoscopy (EGD) Hydrocele in adult Hx of left inguinal hernia repair Hx of bilateral inguinal hernia repair Hx of hemorrhoidectomy H/O eye surgery Social History Smoking Status: Never smoker second hand exposure: No alcohol intake: never substance use type: does not use caffeine: Yes what type of physical activity do you participate in: walking frequency: daily seatbelt use: always ROS ROS ED Constitutional Constitutional ED: Denies chills or fever(s) Eyes Eyes: Denies blurry vision or change in vision ENT ENT ED: Denies rhinorrhea or sore throat Cardiovascular Cardiovascular: Reports chest pain; Denies palpitations Respiratory/Chest Respiratory/Chest: Reports dyspnea; Denies cough Gastrointestinal Gastrointestinal: Denies nausea or vomiting Genitourinary Genitourinary ED: Reports urinary frequency; Denies dysuria or hematuria Musculoskeletal Musculoskeletal: Reports back pain; Denies neck pain Integumentary Denies abscess or rash Neurologic Neurologic: Reports headache(s); Denies weakness Allergic/Immunologic Allergic/Immunologic ED: Denies mouth swelling or urticaria EXAM Physical Exam Const Vital Signs: 04/08/24 10:57 04/08/24 11:01 04/08/24 11:46 Temperature 98 F 98 F Temperature Source Temporal Temporal Pulse Rate 48 L 44 L Respiratory Rate 22 H 18 Respiratory Effort Respiratory Depth Respiratory Pattern Blood Pressure 153/69 H 126/44 H Blood Pressure Mean 97 71 Pulse Ox 100 98 98 Oxygen Delivery Method Nasal Cannula Nasal Cannula Nasal Cannula Oxygen Flow Rate (L/min) 6 2 4 04/08/24 12:01 04/08/24 12:01 04/08/24 13:00 Temperature 98 F 98 F Temperature Source Temporal Temporal Pulse Rate 54 L 42 L Respiratory Rate 18 20 H Respiratory Effort Respiratory Depth Respiratory Pattern Blood Pressure 120/68 159/61 H Blood Pressure Mean 85 93 Pulse Ox 96 98 98 Oxygen Delivery Method Nasal Cannula Nasal Cannula Nasal Cannula Oxygen Flow Rate (L/min) 4 4 2 04/08/24 14:00 04/08/24 15:00 04/08/24 16:00 Temperature 98 F 98 F 98 F Temperature Source Oral Temporal Oral Pulse Rate 41 L 48 L 47 L Respiratory Rate 18 16 20 H Respiratory Effort Respiratory Depth Respiratory Pattern Blood Pressure 169/58 H 168/72 H 148/87 H Blood Pressure Mean 95 104 107 Pulse Ox 98 98 98 Oxygen Delivery Method Nasal Cannula Nasal Cannula Nasal Cannula Oxygen Flow Rate (L/min) 4 5 4 04/08/24 17:00 04/08/24 17:06 04/08/24 17:07 Temperature 97.3 F L 97.3 F L Temperature Source Temporal Pulse Rate 82 82 Respiratory Rate 24 H 24 H Respiratory Effort Normal Non-Labored Respiratory Depth Normal Respiratory Pattern Normal Blood Pressure 213/98 H 213/98 H Blood Pressure Mean 136 136 Pulse Ox 100 100 Oxygen Delivery Method Nasal Cannula Nasal Cannula Oxygen Flow Rate (L/min) 5 5 04/08/24 18:00 Temperature 98.7 F Temperature Source Oral Pulse Rate 72 Respiratory Rate 22 H Respiratory Effort Respiratory Depth Respiratory Pattern Blood Pressure 148/66 H Blood Pressure Mean 93 Pulse Ox 99 Oxygen Delivery Method Nasal Cannula Oxygen Flow Rate (L/min) 5 Positive well nourished and well developed General Appearance ED: well developed and NAD HEENT Reports moist mucous membranes Neck supple and no JVD Resp normal respiratory effort and clear to auscultation bilaterally Cardio regular rhythm Rate: bradycardia GI non-tender and non-distended Palpation: soft Neuro oriented x3, CN's II-XII intact bilaterally and no sensory deficits noted [place] Coma Scale: document GCS findings Spontaneous Obeys Commands Oriented 15 Sensorium / Orientation: alert Speech: speech normal Motor Exam: strength 5/5 throughout Psych mental status grossly normal MDM MDM MDM Narrative Medical decision making narrative: Differential diagnosis includes pneumothorax, and tension pneumothorax. MRI scan of the chest will be obtained to assess for pneumothorax and obtained for pneumothorax. CBC will be obtained to assess for leukocytosis and anemia. Basic metabolic profile will be obtained to assess for electrolyte abnormality and renal function. Urinalysis will be obtained to assess for urinary tract infection due to the urinary frequency. Lab Data Attestation: I reviewed the patient's lab results. Lab results narrative: CBC was reviewed. There is a mild anemia with a hemoglobin of 12.8 and hematocrit 39.8. Remainder is within normal limits. Basic metabolic profile was reviewed and was within normal limits. Urinalysis was reviewed. There is no evidence of urinary tract infection or hematuria. Labs: Laboratory Results - last 24 hr 04/08/24 04/08/24 04/08/24 09:06 11:45 12:20 WBC 6.7 RBC 4.19 L Hgb 12.8 L Hct 39.8 L MCV 95.0 H MCH 30.5 MCHC 32.2 RDW Std Deviation 49.5 H RDW Coeff of Cristopher 14.4 Plt Count 278 MPV 11.8 Immature Gran % (Auto) 0.300 Neut % (Auto) 58.8 Lymph % (Auto) 28.5 [place] % (Auto) 10.2 H Eos % (Auto) 1.5 Baso % (Auto) 0.7 Absolute Neuts (auto) 4.0 Absolute Lymphs (auto) 1.92 Nucleated RBC % 0 Sodium 136 Potassium 4.2 Chloride 100 Carbon Dioxide 32.0 Anion Gap 4 L BUN 14 Creatinine 0.76 Est GFR (MDRD) Af Amer 125 Est GFR (MDRD) Non-Af 103 BUN/Creatinine Ratio 18.5 Glucose 105 Calcium 9.3 Urine Color Yellow Urine Clarity Clear Urine pH 7.0 Ur Specific [place] 1.010 Urine Protein 15 H Urine Glucose (UA) Normal Urine Ketones 15 H Urine Occult Blood Negative Urine Nitrite Negative Urine Bilirubin Negative Urine Urobilinogen Normal Ur Leukocyte Esterase Negative Urine RBC 0 SEEN Urine WBC 0 SEEN Ur Squamous Epith Cells 0 SEEN Urine Bacteria 0 SEEN Urine Mucus 0 SEEN Radiography Diagnostic Testing: Clinical Impression(s) from Imaging Studies Chest CT 04/08/24 11:35 IMPRESSION: Moderate-sized left pneumothorax as documented on recent chest radiograph earlier today. 6.6 x 5.5 cm left lower lobe masslike opacity concerning for malignancy. Small left pleural effusion. Atherosclerosis. [employer] RECOMMENDATIONS FOR FOLLOW-UP OF SMALL SOLID LUNG NODULES DETECTED INCIDENTALLY ON CT (for PATIENTS ? 35 YEARS OF AGE with no known extra-pulmonary cancer and no clinical evidence of infection). Electronically Signed: Katie Arvizu MD at 12:17 EST , Chest X-Ray 04/08/24 15:31 IMPRESSION: Since previous exams patient''s known left pneumothorax has increased and is now considered large but no evidence for tension. Left chest tube appears in grossly satisfactory position. Electronically Signed: Ramiro Juares MD at 16:06 EST , Chest X-Ray 04/08/24 16:38 IMPRESSION: undefined CT scan of the chest was obtained. There is a moderate size left pneumothorax. There is a left lower lobe masslike opacity concerning for malignancy. This was interpreted by the radiologist and was also independently reviewed by myself. Chest x-ray after placement of the chest tube was obtained. There is 1 view. On my independent interpretation, there is a worsening pneumothorax. The chest tube is in satisfactory position. Radiologist also interpreted the x-ray and agrees. Repeat chest x-ray after withdrawing the thoracostomy tube 3 cm and fixing the suction was obtained. There is 1 view. On my independent interpretation, there is reexpansion of the lung. Radiologist also interpreted the x-rays and agrees. Treatment and Re-Evaluation :: Patient was advised of the need for tube thoracostomy. Patient was advised of the procedure. Patient was advised of the risks and benefits. Patient was given the opportunity ask questions. Patient had no further questions. Please see procedure note for description of the procedure. Case was discussed with Dr. Montoya. She is agreeable with placing the pigtail catheter chest tube. This was performed. She will manage the chest tube in the hospital. Case was discussed with the hospitalist. He will admit the patient to his service. Patient understands and is agreeable with the plan. All questions were answered. Procedures Other Procedures Procedure(s): The left chest was cleaned and prepped in a sterile manner. The left lateral chest was anesthetized with 1% lidocaine locally. The left thoracic cavity was punctured with a needle. There was aspiration of air. The guidewire was then passed into the chest chest cavity. The needle was withdrawn. A small incision was made along the guidewire. A dilator was then used to dilate the tissues. A pigtail catheter was then inserted over the guidewire into the chest cavity. There was aspiration of the air after this was placed. The tube was sutured in place. Xeroform gauze was placed around the tube. The tube was taped. The tube was connected to suction. Chest x-ray was obtained postprocedure. There is worsening of the pneumothorax. The tube was noted to be along the medial aspect of the left chest cavity. The tube was withdrawn by 3 cm. It was noted at that time that the stopcock was closed to the suction port. This was moved and there was good suction noted. Repeat chest x-ray showed reexpansion of the lung after this. Patient felt better after this. Patient tolerated procedure well. Discharge Plan Dx/Rx/DC Orders Clinical Impression: Pneumothorax, post biopsy, left, SOB (shortness of breath), Lung mass Disposition Disposition: Acute Care Hospital [facility] Discharge Date/Time: 04/08/24 18:46
--- NOTE | 2024-04-08 11:42 | CM.ED ---
Social work Reason for referral: verification of advance directives Referral source: case find This SW identified need for patient's advance directives to be verified. This SW identified patient's HCPOA and living will documents both being [facility], with patient's son, Kyle, listed as HCPOA. This SW entered patient's room, introducing self and role at [facility]. Patient was sitting in bed, alert and oriented. Patient welcomed SW conversation, though patient stated patient was grumpy due to being in the ED. Patient stated a desire to not be in the ED anymore and SW provided active listening and supportive presence. Patient verified that patient's HCPOA was patient's son, Kyle. Patient was adamant that this SW or any [facility] ED staff are not to call patient's son unless patient is about to croak. Patient explained that patient cannot trust patient's son to keep his arredondo mouth shut. Patient stated having nobody else that patient would rather have as HCPOA, so this SW explained that in an emergency situation, patient's son would be the one to make decisions for patient. Patient expressed understanding. Patient denied further needs at this time. Katya Shepherd, CLUB WAITER/WAITRESS, PROFESSIONAL ATHLETE
[2024-04-08 12:12] LABS: Anion Gap 4 (5-15); BUN 14 mg/dL (7-18); BUN/Creat Ratio 18.5 RATIO (10-20); Calcium,Total 9.3 mg/dL (8.5-10.1); Chloride 100 mmol/L (98-107); Creatinine, Serum 0.76 mg/dL (0.70-1.30); EST Glomerular Filtration Rate 103 mL/min (>60); Est Glom Filt Rate - Afr Amer 125 mL/min (>60); Glucose 105 mg/dL (74-106); Potassium 4.2 mmol/L (3.5-5.1); Sodium Level 136 mmol/L (136-145)
[2024-04-08 12:28] LABS: Bacteria 0 SEEN /hpf (None Seen); Mucous, Urine 0 SEEN /hpf (<or=2+); Red Blood Cells-Urine 0 SEEN /hpf (0-5); Squamous Epithelial Cells - UA 0 SEEN /hpf (0-5); White Blood Cells 0 SEEN /hpf (0-5)
[2024-04-08 12:36] LABS: Color, Urine Yellow (Yellow); Glucose, Dipstick Normal (Normal); Ketone-Dipstick 15 mg/dl (Negative); Leukocyte Esterase-Dipstick Negative /ul (Negative); Nitrite-Dipstick Negative (Negative); Occult Blood-Urine Negative /ul (Negative); Protein-Dipstick 15 mg/dl (Negative); Urine Bilirubin Dipstick Negative (Negative); Urine Clarity Clear (Clear); Urine Urobilinogen Normal (Normal)
[2024-04-08 12:56] LABS: Absolute Lymphocyte Count 1.92 X10^3/uL (0.83-4.51); Basophil# 0.05 X10^3/uL; Basophil% 0.7 % (0-1); Eosinophils% 1.5 % (0-5); Hematocrit 39.8 % (40-54); Hemoglobin 12.8 g/dL (13.0-16.5); Lymphocyte # 1.92 X10^3/ul (0.83-4.51); Lymphocyte % 28.5 % (19-41); Mean Corp Hgb Conc 32.2 g/dL (32-36); Mean Corpuscular Hgb 30.5 pg (27.0-32.0); Mean Platelet Vol. 11.8 fl (6.2-12.0); Monocyte# 0.69 X10^3/uL; Monocyte% 10.2 % (0-10); NRBC Flagged by Analyzer 0 % (0-5); Neutrophil # 3.96 X10^3/uL (2.7-7.7); Neutrophil % 58.8 % (47-70); Platelet Count 278 K/mm3 (150-450); RBC Distribution Width CV 14.4 % (11.6-14.6); RBC Distribution Width SD 49.5 fl (35.1-43.9); Red Blood Count 4.19 M/mm3 (4.6-6.2); White Blood Count 6.7 K/mm3 (4.4-11.0)
--- NOTE | 2024-04-08 15:31 | RAD_ITS ---
STUDY: X-RAY CHEST REASON FOR EXAM: Male, 88 years old. chest tube placement patient with known pneumothorax. TECHNIQUE: Single AP portable view of the chest. COMPARISON: Chest x-ray and CT scan of the same day. FINDINGS: Since prior exam patient has had pleural drain position in the upper left hemithorax terminating medially. However, left pneumothorax has increased since previous studies. Prominent atelectasis of the mid left lung. No gross tension. RAD/Chest 1 View (Portable) IMPRESSION: Since previous exams patient''s known left pneumothorax has increased and is now considered large but no evidence for tension. Left chest tube appears in grossly satisfactory position. Electronically Signed: Ramiro Juares MD at 16:06 EST ,
--- NOTE | 2024-04-08 16:38 | RAD_ITS ---
STUDY: X-RAY CHEST REASON FOR EXAM: Male, 88 years old. Repeat after chest tube manipulation TECHNIQUE: Single AP portable view of the chest. COMPARISON: Same day, 3:28 PM. FINDINGS: No definite pneumothorax currently seen. Complete reexpansion of the left lung. No other changes since earlier today. Electronically Signed: Ramiro Juares MD at 17:30 EST , RAD/Chest 1 View (Portable) IMPRESSION: undefined
[2024-04-08] MEDS: Morphine 4 MG/ML Syringe IV (16:47)
[2024-04-08] MEDS: Levothyroxine 25 MCG TABLET PO (17:06)
[2024-04-08] MEDS: Metoprolol(XL)Succ 25 MG Tablet PO (17:06)
--- NOTE | 2024-04-08 18:43 | HP.PCM.HOS_ITS ---
[facility] - General General Date of Admission: 04/08/24 Date of Service: 04/08/24 Chief Complaint: shortness of breath HPI Narrative XAVI FINN, is a 88 M who presents with shortness of breath. This is a 88-year-old male who was undergoing a CT-guided biopsy of a left lung mass where he sustained a pneumothorax with the procedure. Patient had a CT of his chest that confirmed left-sided pneumothorax. He was sent to the emergency room and ED physician spoke with general surgery who recommended chest tube and chest tube was placed. Did require further advancement while patient was in the emergency room. Patient is having chest pain related with a chest tube. Is breathing comfortably now. [facility] Medical History Lung mass Hypertension Cramps, extremity Borderline type 2 diabetes mellitus Elevated blood sugar level Subclinical hypothyroidism Wears dentures Wears glasses Bruising Prostate disease High cholesterol Back pain Easy bruising History of IBS Non-smoker Hoarseness Chronic cough Leg cramps History of stress test Chest pain Epigastric pain Nausea Abdominal pain Hemorrhoids Constipation Cough SOB (shortness of breath) Anxiety Heart murmur Arthritis Dysphagia Fatigue Weight loss Home Medications ?Medication ?Instructions ?Recorded ?Last Taken ?Type aspirin 81 mg tablet,delayed 81 mg PO QDAY #90 tabs 01/05/24 Unknown Rx release (Adult Aspirin Regimen) levothyroxine 25 mcg capsule 25 mcg PO DAILY #90 caps 01/06/24 Unknown Rx metoprolol succinate 25 mg 25 mg PO BID #180 tabs 02/09/24 Unknown Rx tablet,extended release 24 hr Allergy/AdvReac Type Severity Reaction Status Date / Time carbamazepine (From Tegretol) Allergy Unknown YBARRA, PAIN Verified 04/08/24 09:18 ALL OVER, CAN'T FEEL, I WAS ALMOST pravastatin Allergy Rash Verified 04/08/24 09:18 omeprazole (From Prilosec) AdvReac Intermediate Upset Verified 04/08/24 09:18 Stomach Family History Son Cancer Surgical History History of surgery Hx of colonoscopy History of esophagogastroduodenoscopy (EGD) Hydrocele in adult Hx of left inguinal hernia repair Hx of bilateral inguinal hernia repair Hx of hemorrhoidectomy H/O eye surgery Social History Smoking Status: Never smoker second hand exposure: No alcohol intake: never substance use type: does not use caffeine: Yes what type of physical activity do you participate in: walking frequency: daily seatbelt use: always ROS ROS Narrative Does complain of a chronic cough and productive clear phlegm. This been going on for years. All review of systems were negative except as mentioned above in the history of present illness and the other review of systems. Vital Signs Vital Signs Vital Signs: 04/08/24 10:57 04/08/24 11:01 04/08/24 11:46 Temperature 36.6 C 36.6 C Temperature Source Temporal Temporal Pulse Rate 48 L 44 L Respiratory Rate 22 H 18 Respiratory Effort Respiratory Depth Respiratory Pattern Blood Pressure 153/69 H 126/44 H Blood Pressure Mean 97 71 Pulse Ox 100 98 98 Oxygen Delivery Method Nasal Cannula Nasal Cannula Nasal Cannula Oxygen Flow Rate (L/min) 6 2 4 04/08/24 12:01 04/08/24 12:01 04/08/24 13:00 Temperature 36.6 C 36.6 C Temperature Source Temporal Temporal Pulse Rate 54 L 42 L Respiratory Rate 18 20 H Respiratory Effort Respiratory Depth Respiratory Pattern Blood Pressure 120/68 159/61 H Blood Pressure Mean 85 93 Pulse Ox 96 98 98 Oxygen Delivery Method Nasal Cannula Nasal Cannula Nasal Cannula Oxygen Flow Rate (L/min) 4 4 2 04/08/24 14:00 04/08/24 15:00 04/08/24 16:00 Temperature 36.6 C 36.6 C 36.6 C Temperature Source Oral Temporal Oral Pulse Rate 41 L 48 L 47 L Respiratory Rate 18 16 20 H Respiratory Effort Respiratory Depth Respiratory Pattern Blood Pressure 169/58 H 168/72 H 148/87 H Blood Pressure Mean 95 104 107 Pulse Ox 98 98 98 Oxygen Delivery Method Nasal Cannula Nasal Cannula Nasal Cannula Oxygen Flow Rate (L/min) 4 5 4 04/08/24 17:00 04/08/24 17:06 04/08/24 17:07 Temperature 36.3 C L 36.3 C L Temperature Source Temporal Pulse Rate 82 82 Respiratory Rate 24 H 24 H Respiratory Effort Normal Non-Labored Respiratory Depth Normal Respiratory Pattern Normal Blood Pressure 213/98 H 213/98 H Blood Pressure Mean 136 136 Pulse Ox 100 100 Oxygen Delivery Method Nasal Cannula Nasal Cannula Oxygen Flow Rate (L/min) 5 5 04/08/24 18:00 Temperature 37.1 C Temperature Source Oral Pulse Rate 72 Respiratory Rate 22 H Respiratory Effort Respiratory Depth Respiratory Pattern Blood Pressure 148/66 H Blood Pressure Mean 93 Pulse Ox 99 Oxygen Delivery Method Nasal Cannula Oxygen Flow Rate (L/min) 5 Weight Weight: 103.7 kg Body Mass Index (BMI) 39.2 Physical Exam Const alert and no apparent distress Constitutional Narrative: Thin appearing HEENT normocephalic and head/scalp atraumatic Resp normal respiratory effort, no retractions, no use of accessory muscles and clear to auscultation bilaterally Cardio regular rate, regular rhythm, S1 normal heart sound and S2 normal heart sound GI normal to inspection, nondistended, normoactive bowel sounds, soft to palpation, non-tender and non-distended Extremity normal to inspection and no clubbing, cyanosis or edema Neuro Sensorium / Orientation: awake and alert Results Lab / Micro Data Attestation: I reviewed the patient's lab results. 04/08/24 09:06 04/08/24 11:45 Labs: Laboratory Results - last 24 hr 04/08/24 09:06: WBC 6.7, RBC 4.19 L, Hgb 12.8 L, Hct 39.8 L, MCV 95.0 H, MCH 30.5, MCHC 32.2, RDW Std Deviation 49.5 H, RDW Coeff of Cristopher 14.4, Plt Count 278, MPV 11.8, Immature Gran % (Auto) 0.300, Neut % (Auto) 58.8, Lymph % (Auto) 28.5, [place] % (Auto) 10.2 H, Eos % (Auto) 1.5, Baso % (Auto) 0.7, Absolute Neuts (auto) 4.0, Absolute Lymphs (auto) 1.92, Nucleated RBC % 0 04/08/24 11:45: Sodium 136, Potassium 4.2, Chloride 100, Carbon Dioxide 32.0, A nion Gap 4 L, BUN 14, Creatinine 0.76, Est GFR (MDRD) Af Amer 125, Est GFR (MDRD) Non-Af 103, BUN/Creatinine Ratio 18.5, Glucose 105, Calcium 9.3 04/08/24 12:20: Urine Color Yellow, Urine Clarity Clear, Urine pH 7.0, Ur Specific [place] 1.010, Urine Protein 15 H, Urine Glucose (UA) Normal, Urine Ketones 15 H, Urine Occult Blood Negative, Urine Nitrite Negative, Urine Bilirubin Negative, Urine Urobilinogen Normal, Ur Leukocyte Esterase Negative, Urine RBC 0 SEEN, Urine WBC 0 SEEN, Ur Squamous Epith Cells 0 SEEN, Urine Bacteria 0 SEEN, Urine Mucus 0 SEEN Imaging Radiology Impression Chest CT 04/08/24 11:35 IMPRESSION: Moderate-sized left pneumothorax as documented on recent chest radiograph earlier today. 6.6 x 5.5 cm left lower lobe masslike opacity concerning for malignancy. Small left pleural effusion. Atherosclerosis. [employer] RECOMMENDATIONS FOR FOLLOW-UP OF SMALL SOLID LUNG NODULES DETECTED INCIDENTALLY ON CT (for PATIENTS ? 35 YEARS OF AGE with no known extra-pulmonary cancer and no clinical evidence of infection). Electronically Signed: Katie Arvizu MD at 12:17 EST , Chest X-Ray 04/08/24 15:31 IMPRESSION: Since previous exams patient''s known left pneumothorax has increased and is now considered large but no evidence for tension. Left chest tube appears in grossly satisfactory position. Electronically Signed: Ramiro Juares MD at 16:06 EST , Chest X-Ray 04/08/24 16:38 IMPRESSION: undefined Assessment & Plan Assessment/Plan (1) Pneumothorax, post biopsy, left: PLAN: Iatrogenic from left lung biopsy. Chest tube placed and subsequent chest x-rays showed resolution of the pneumothorax (the pneumothorax actually got bigger the previous chest x-ray) Continue chest tube to suction. Consult general surgery for management of chest tube as to when it could be removed. Pain control as patient is having discomfort with the chest tube PLAN: Plan Left lung mass: Patient underwent biopsy today with biopsy. Patient to follow- up with Dr. Sanchez as outpt. Chronic cough: Concern for chronic sinusitis. Patient has seen numerous physicians but has never come to the formal diagnosis. Cachexia: admission weight if 103.7kg, i don't suspect he weighs that much. VTE prophylaxis: LMWH. Charges/Coding Visit Charges Inpatient E&M: 77693 Init Hosp L3
[2024-04-08] MEDS: Acetaminophen 500 MG Tablet 1000 MG PO (23:03)
[2024-04-09] VITALS (7 sets, daily range): BP systolic 122–136; BP diastolic 50–72; PULSE 54–69; RESP 16–18; TEMP 36.6–37.1; O2SAT 97–100
--- NOTE | 2024-04-09 01:17 | PCM.HOSP.N ---
Hospitalist Note Called overnight due to bradycardia with intermittent heart rates into the 20s. It does appear patient received a considerable amount of beta-kaelyn in the emergency department and his home beta-kaelyn was restarted. From what I can tell, it was given for hypertension. Twelve-lead EKG was reviewed and heart rates on admission were in the 40s but sinus. Rhythm strips sent and heart rates are indeed slow. Transferred to PCU. Patient is asymptomatic and conversational even when his heart rate drops. Will monitor on telemetry. Check a TSH stat. Check a chest x-ray to rule out any tension phenomenon with his pneumothorax. And low-dose glucagon 10 mg x 1 dose. If persistent or becomes symptomatic may need further intervention.
--- NOTE | 2024-04-09 01:53 | NURSING ---
At approximately 0030 on 04/09/[address] Schwartz that [facility] Room 316 admitted for a pneumothorax after ct guided left lung biopsy and chest tube insertion heart rate was dropping down into the 20's and then back up into the 40's and 50's. Dr Schwartz asked me to send her a picture of a recent EKG from today if we had one. I sent her a picture of an EKG today and she asked me if he had a pacer and how he got his pnuemo? I informed her that it was after his ct guided biopsy on his left lung and that vidal Keith NP did the biopsy, Dr. Montoya was consulted, the biopsy was ordered by [facility] and the chest tube was placed by Dr Ismael Alvarez. Per Dr Schwartz I placed the patient on Telemetry and sent her a photo of a printed strip. It showed the heart rate on the continuous pulse was in the 20's while the telemetry showed his heart rate in the 50's. The telemetry strip also showed 28 PVC's and Bigeminy. I informed the physician that all the patients other vital signs were within normal limits and his chest tube was intact without any complications and the patient was in no distress and Alert and Oriented. The physician talked to the coremaking supervisor and the decision was made to transfer patient to PCU. I will Inform Dr. Montoya in the am.
--- NOTE | 2024-04-09 02:02 | RAD_ITS ---
INDICATION: PTX EXAMINATION/TECHNIQUE: X-RAY - XR Chest 1 View COMPARISON: No relevant prior comparison study available FINDINGS: LINES/DEVICES: Left chest tube in good position. LUNGS: No consolidation, edema or effusion. No pneumothorax. MEDIASTINUM AND CARDIOVASCULAR STRUCTURES: Cardiac silhouette not enlarged. Central airways and mediastinal contour are unremarkable. BONES AND SOFT TISSUES: Unremarkable. RAD/Chest 1 View (Portable) IMPRESSION: Left chest tube in good position. Resolved pneumothorax. Electronically Signed: Belem Hernadez MD at 3:13 EST ,
[2024-04-09] MEDS: 0.9% Saline Lock 10 ML Syringe IV ×2 (02:20→02:46)
[2024-04-09] MEDS: Glucagon 1 MG/ML Syringe 10 MG IV (02:21)
[2024-04-09] MEDS: Ondansetron 4 MG/2 ML Vial IV (02:46)
[2024-04-09] MEDS: Levothyroxine 25 MCG TABLET PO (05:56)
[2024-04-09] MEDS: Acetaminophen 500 MG Tablet 1000 MG PO ×3 (05:56→22:24)
[2024-04-09 07:29] LABS: Magnesium 2.3 mg/dL (1.6-2.6)
[2024-04-09] MEDS: Enoxaparin 40 MG/0.4 ML Syringe SC (08:52)
[2024-04-09] MEDS: Aspirin E.C. 81 MG Tablet PO (08:52)
--- NOTE | 2024-04-09 09:29 | EX.PCM.CON.S ---
Assessment & Plan Assessment/Plan (1) Pneumothorax, post biopsy, left: (2) Lung mass: PLAN: Plan Discussed with patient we will continue -20 at the Pleur-evac today if chest x-ray looks good tomorrow a.m. we will plan to place to day [facility]. Patient is agreeable plan has no further question this time. Teri Montoya M.D. Pager: [phone] [facility] [address] [place] [address], Outpatient Pavilion, [address] [place] [id number] Office: [phone] HPI Consult Data Date of Consult: 04/09/24 HPI Narrative Reason for Consultation: Left chest tube due to pneumothorax status post biopsy of left lung mass HPI Narrative: XAVI FINN, is a 88 M who admitted due to left pneumothorax status post biopsy of left lung mass. Patient had percutaneous chest tube placed in the ER. With good reinflation of the lung. Patient did have issues with bradycardia overnight and was transferred to PCU. Patient currently denies any shortness of breath. Chest tubes hooked up to a Pleur-evac?-20, no leak with coughing. Chest x-ray done at 3 AM shows lung still reinflated. [facility] Medical History Lung mass Hypertension Cramps, extremity Borderline type 2 diabetes mellitus Elevated blood sugar level Subclinical hypothyroidism Wears dentures Wears glasses Bruising Prostate disease High cholesterol Back pain Easy bruising History of IBS Non-smoker Hoarseness Chronic cough Leg cramps History of stress test Chest pain Epigastric pain Nausea Abdominal pain Hemorrhoids Constipation Cough SOB (shortness of breath) Anxiety Heart murmur Arthritis Dysphagia Fatigue Weight loss Home Medications ?Medication ?Instructions ?Recorded ?Last Taken ?Type aspirin 81 mg tablet,delayed 81 mg PO QDAY #90 tabs 01/05/24 Unknown Rx release (Adult Aspirin Regimen) levothyroxine 25 mcg capsule 25 mcg PO DAILY #90 caps 01/06/24 Unknown Rx metoprolol succinate 25 mg 25 mg PO BID #180 tabs 02/09/24 Unknown Rx tablet,extended release 24 hr Allergy/AdvReac Type Severity Reaction Status Date / Time carbamazepine (From Tegretol) Allergy Unknown YBARRA, PAIN Verified 04/08/24 09:18 ALL OVER, CAN'T FEEL, I WAS ALMOST pravastatin Allergy Rash Verified 04/08/24 09:18 omeprazole (From Prilosec) AdvReac Intermediate Upset Verified 04/08/24 09:18 Stomach Family History Son Cancer Surgical History History of surgery Hx of colonoscopy History of esophagogastroduodenoscopy (EGD) Hydrocele in adult Hx of left inguinal hernia repair Hx of bilateral inguinal hernia repair Hx of hemorrhoidectomy H/O eye surgery Social History Smoking Status: Never smoker second hand exposure: No alcohol intake: never substance use type: does not use caffeine: Yes what type of physical activity do you participate in: walking frequency: daily seatbelt use: always ROS Constitutional Constitutional: Denies anorexia Eyes Eyes: Denies change in vision ENT HEENT: Denies dysphagia Cardiovascular Cardiovascular: Denies chest pain Respiratory/Chest Respiratory/Chest: Denies shortness of breath at rest Gastrointestinal Gastrointestinal: Reports constipation; Denies abdominal pain, nausea or vomiting Genitourinary Genitourinary: Denies dysuria Musculoskeletal Musculoskeletal: Denies joint swelling Integumentary Integumentary: Denies jaundice Neurologic Neurologic: Denies focal weakness Psychiatric Psychiatric: Denies anxiety Endocrine Endocrinology: Denies palpitations Hematologic/Lymphatic Hematologic/Lymphatic: Denies easy bleeding Physical Exam Const alert, oriented x3 and no apparent distress HEENT normocephalic and head/scalp atraumatic Neck supple Resp normal respiratory effort Resp Narrative: Left chest tube in place no leak to -20 on Pleur-evac, did have a small amount of bleeding and the smaller tube connected to Pleur-evac this was flushed with saline by shutting off the stopcock to the chest tube. Cardio regular rate GI soft to palpation and non-tender; Negative for non-distended Extremity normal to inspection Skin no rashes or lesions noted Neuro CN's II-XII intact bilaterally Psych mental status grossly normal Lab / Micro Data 04/08/24 09:06 04/08/24 11:45 Labs: Laboratory Results - last 24 hr 04/08/24 09:06: WBC 6.7, RBC 4.19 L, Hgb 12.8 L, Hct 39.8 L, MCV 95.0 H, MCH 30.5, MCHC 32.2, RDW Std Deviation 49.5 H, RDW Coeff of Cristopher 14.4, Plt Count 278, MPV 11.8, Immature Gran % (Auto) 0.300, Neut % (Auto) 58.8, Lymph % (Auto) 28.5, [place] % (Auto) 10.2 H, Eos % (Auto) 1.5, Baso % (Auto) 0.7, Absolute Neuts (auto) 4.0, Absolute Lymphs (auto) 1.92, Nucleated RBC % 0 04/08/24 11:45: Sodium 136, Potassium 4.2, Chloride 100, Carbon Dioxide 32.0, Anion Gap 4 L, BUN 14, Creatinine 0.76, Est GFR (MDRD) Af Amer 125, Est GFR (MDRD) Non-Af 103, BUN/Creatinine Ratio 18.5, Glucose 105, Calcium 9.3, TSH 3.820 H 04/08/24 12:20: Urine Color Yellow, Urine Clarity Clear, Urine pH 7.0, Ur Specific [place] 1.010, Urine Protein 15 H, Urine Glucose (UA) Normal, Urine Ketones 15 H, Urine Occult Blood Negative, Urine Nitrite Negative, Urine Bilirubin Negative, Urine Urobilinogen Normal, Ur Leukocyte Esterase Negative, Urine RBC 0 SEEN, Urine WBC 0 SEEN, Ur Squamous Epith Cells 0 SEEN, Urine Bacteria 0 SEEN, Urine Mucus 0 SEEN 04/09/24 06:15: Magnesium 2.3 Imaging Radiology Impression Chest CT 04/08/24 11:35 IMPRESSION: Moderate-sized left pneumothorax as documented on recent chest radiograph earlier today. 6.6 x 5.5 cm left lower lobe masslike opacity concerning for malignancy. Small left pleural effusion. Atherosclerosis. [employer] RECOMMENDATIONS FOR FOLLOW-UP OF SMALL SOLID LUNG NODULES DETECTED INCIDENTALLY ON CT (for PATIENTS ? 35 YEARS OF AGE with no known extra-pulmonary cancer and no clinical evidence of infection). Electronically Signed: Katie Arvizu MD at 12:17 EST , Chest X-Ray 04/08/24 15:31 IMPRESSION: Since previous exams patient''s known left pneumothorax has increased and is now considered large but no evidence for tension. Left chest tube appears in grossly satisfactory position. Electronically Signed: Ramiro Juares MD at 16:06 EST , Chest X-Ray 04/08/24 16:38 IMPRESSION: undefined Chest X-Ray 04/09/24 02:02 IMPRESSION: Left chest tube in good position. Resolved pneumothorax. Electronically Signed: Belem Hernadez MD at 3:13 EST , Charges/Coding Visit Charges Inpatient E&M: 23131 Init Hosp L3
--- NOTE | 2024-04-09 09:40 | CASEMGMT ---
SANTANA FLORES Assessment: Face to Face with pt for initial transition planning/care coordination assessment. SANTANA FLORES introduced self and role at [facility], pt voices understanding and consents to assessment. Pt is A&O x4 and answers all questions appropriately at this time. Pt lying in bed in no distress. Care providers, pharmacy, and demographics verified/updated. Strata: 2 Admitting Dx: Pneumothorax PCP: Ilia Specialists: Cardiology, Brandon; Prah, Oncologist; Friend, Gastrologist Preferred Pharmacy: [facility] Insurance: [employer] [facility] Prescription Benefit: yes LNOK: SonKyle Living Arrangements: Pt lives alone in a 2 story home with 2 flights of stairs to enter. ADLs: Pt states I at baseline Transportation: Pt drives self and has a friend he can call if needed, denies concerns with transportation. Specifically asked Pt about transportation home and he states he will call someone to come get him, denies wanting hospital transportation. DME: Denies HHC/SNF: Denies Hx of. Pt states no concerns with going home at time of dc. SANTANA FLORES discussed OP therapy or HHC with Pt, Pt denies and states therapy did not help him. Pt states no further concerns/needs. CM to follow. Advised pt to ask CM if any further question/concerns/needs arise, voices understanding. Pt Goal: Home Plan: Home, follow for safe DC plan. Michael DILLON CM
--- NOTE | 2024-04-09 14:42 | PN_ITS ---
Subjective Subjective Patient seen and examined. He had no active complaints. Review of systems otherwise negative. Chest tube remains in situ. He is on room air. Objective Data Objective Data Vital Signs: Vital Signs Temp Pulse Resp BP Pulse Ox O2 Del Method O2 Flow Rate 97.8 F 54 L 18 122/57 H 97 Room Air 2 04/09/24 08:55 04/09/24 08:55 04/09/24 08:55 04/09/24 08:55 04/09/24 12:06 04/09/24 14:00 04/09/24 08:12 Oxygen Flow Rate (L/min) 2 Oxygen Delivery Method Room Air Weight: 97 lb 0.054 oz Body Mass Index (BMI) 16.5 Intake & Output: Intake and Output for Last 24 Hours 04/07/24 04/08/24 04/09/24 23:59 23:59 23:59 Intake Total 340 / 340 Output Total 200 / 400 650 / 650 Balance -200 / -400 -310 / -310 Lab / Micro Data 04/08/24 09:06 04/08/24 11:45 Labs: Laboratory Results - last 24 hr 04/08/24 11:45: TSH 3.820 H 04/09/24 06:15: Magnesium 2.3 Radiography Diagnostic Testing: Radiology Impression Chest X-Ray 04/08/24 15:31 IMPRESSION: Since previous exams patient''s known left pneumothorax has increased and is now considered large but no evidence for tension. Left chest tube appears in grossly satisfactory position. Electronically Signed: Ramiro Juares MD at 16:06 EST , Chest X-Ray 04/08/24 16:38 IMPRESSION: undefined Chest X-Ray 04/09/24 02:02 IMPRESSION: Left chest tube in good position. Resolved pneumothorax. Electronically Signed: Belem Hernadez MD at 3:13 EST , Physical Exam Const alert, oriented x3, no apparent distress and well nourished General Appearance: cooperative and well developed HEENT normocephalic, head/scalp atraumatic, moist oral mucous membranes and oropharynx normal Eyes PERRL and EOMs intact bilaterally Neck no lymphadenopathy and supple Lymph Lymphatic: no lymphadenopathy noted and no lymphedema noted Resp Resp Narrative: Mildly diminished breath sounds bibasilarly. No wheezes or crackles. On room air. Left-sided chest tube in situ Cardio regular rate, regular rhythm, S1 normal heart sound, S2 normal heart sound and no murmurs GI normal to inspection, nondistended, normoactive bowel sounds, soft to palpation, non-tender and non-distended Extremity normal capillary refill, no clubbing, cyanosis or edema and no calf tenderness General Extremity: no tenderness to palpation of joints or extremities Skin General Skin Exam: no breakdown Neuro CN's II-XII intact bilaterally, no focal motor deficits and no sensory deficits noted Motor Exam: strength 5/5 throughout and general weakness Psych thought process normal, cooperative and affect normal Appearance: appropriate Assessment & Plan Assessment/Plan (1) Pneumothorax, post biopsy, left: PLAN: Plan #Iatrogenic left-sided pneumothorax * Patient admitted after he had a left sided lung biopsy with resultant pneumothorax. He had a chest tube inserted. * He is on room air. Chest x-ray this morning showed resolved pneumothorax. * Per general surgery to keep the chest tube in situ today and placed on the waterseal tomorrow. * Breathing treatments with bronchodilators. Give oxygen as needed to maintain saturation above 90%. * #Left lung lower lobe mass * Had biopsy yesterday. * Follow-up with oncology on outpatient basis. * #Hypothyroidism: On Synthroid #Hypertension: On metoprolol * DVT prophylaxis: Lovenox Charges/Coding Visit Charges Inpatient E&M: 98492 Subs Hosp L2
[2024-04-09] MEDS: Docusate Sodium 100 MG Capsule PO (15:03)
[2024-04-10] VITALS (8 sets, daily range): BP systolic 112–172; BP diastolic 53–71; PULSE 51–91; RESP 16–18; TEMP 36.1–36.8; O2SAT 96–100
--- NOTE | 2024-04-10 05:40 | RAD_ITS ---
EXAM: XR CHEST, 1 VIEW CLINICAL INDICATION: chest tube-portable -- portable TECHNIQUE: Frontal view of the chest. COMPARISON: 04/09/2024 FINDINGS: LUNGS AND PLEURAL SPACES: Unremarkable. No effusion. No increasing pneumothorax. No new consolidation. HEART: Unremarkable. Cardiac silhouette not enlarged. MEDIASTINUM: Central airways and mediastinal contour are unremarkable. BONES/JOINTS: Unremarkable. No acute fracture. SOFT TISSUES: Left chest wall air is unchanged. TUBES, LINES AND DEVICES: Unchanged appearance of left chest tube. OTHER FINDINGS: Remaining chest is stable. RAD/Chest 1 View (Portable) IMPRESSION: Stable chest. Electronically Signed: Yuan Mooney MD at 22:43 EST ,
[2024-04-10] MEDS: Levothyroxine 25 MCG TABLET PO (06:34)
[2024-04-10] MEDS: Acetaminophen 500 MG Tablet 1000 MG PO ×3 (06:34→22:28)
[2024-04-10 08:16] LABS: Absolute Lymphocyte Count 1.44 X10^3/uL (0.83-4.51); Basophil# 0.03 X10^3/uL; Basophil% 0.4 % (0-1); Eosinophil# 0.15 X10^3/uL; Hemoglobin 12.3 g/dL (13.0-16.5); Lymphocyte # 1.44 X10^3/ul (0.83-4.51); Lymphocyte % 19.5 % (19-41); Mean Corp Hgb Conc 32.4 g/dL (32-36); Mean Corpuscular Hgb 30.5 pg (27.0-32.0); Mean Corpuscular Volume 94.3 fL (80-94); Mean Platelet Vol. 10.3 fl (6.2-12.0); Monocyte# 0.69 X10^3/uL; Monocyte% 9.3 % (0-10); NRBC Flagged by Analyzer 0 % (0-5); Neutrophil # 5.04 X10^3/uL (2.7-7.7); Neutrophil % 68.4 % (47-70); Platelet Count 254 K/mm3 (150-450); RBC Distribution Width CV 14.3 % (11.6-14.6); RBC Distribution Width SD 49.4 fl (35.1-43.9); Red Blood Count 4.03 M/mm3 (4.6-6.2); White Blood Count 7.4 K/mm3 (4.4-11.0)
[2024-04-10 08:43] LABS: Anion Gap 3 (5-15); BUN 20 mg/dL (7-18); BUN/Creat Ratio 25.1 RATIO (10-20); Calcium,Total 9.1 mg/dL (8.5-10.1); Chloride 99 mmol/L (98-107); EST Glomerular Filtration Rate 97 mL/min (>60); Est Glom Filt Rate - Afr Amer 118 mL/min (>60); Estimated Creatinine Clearance 39.72 ml/min; Glucose 104 mg/dL (74-106); Potassium 5.6 mmol/L (3.5-5.1); Sodium Level 133 mmol/L (136-145)
[2024-04-10] MEDS: Aspirin E.C. 81 MG Tablet PO (08:56)
[2024-04-10] MEDS: Enoxaparin 40 MG/0.4 ML Syringe SC (08:57)
[2024-04-10] MEDS: Docusate Sodium 100 MG Capsule PO (08:57)
[2024-04-10] MEDS: hydrALAZINE 20 MG/ML Vial 10 MG IV (09:29)
[2024-04-10] MEDS: 0.9% Saline Lock 10 ML Syringe IV (09:29)
--- NOTE | 2024-04-10 09:50 | PN.SURG_ITS ---
Subjective Subjective denies any issues, cxr no ptx per my read-official pending Objective Data Objective Data Vital Signs: Vital Signs Temp Pulse Resp BP Pulse Ox O2 Del Method O2 Flow Rate 98.0 F 61 18 172/70 H 100 Room Air 2 04/10/24 08:56 04/10/24 09:29 04/10/24 08:56 04/10/24 08:56 04/10/24 08:56 04/10/24 08:56 04/09/24 08:12 Oxygen Flow Rate (L/min) 2 Oxygen Delivery Method Room Air Weight: 97 lb 0.054 oz Body Mass Index (BMI) 16.5 Intake & Output: Intake and Output for Last 24 Hours 04/08/24 04/09/24 04/10/24 23:59 23:59 23:59 Intake Total 1700 / 1700 Output Total 200 / 400 1065 / 1065 830 / 830 Balance -200 / -400 635 / 635 -830 / -830 Lab / Micro Data 04/10/24 08:04 04/10/24 08:04 Labs: Laboratory Results - last 24 hr 04/10/24 08:04: WBC 7.4, RBC 4.03 L, Hgb 12.3 L, Hct 38.0 L, MCV 94.3 H, MCH 30.5, MCHC 32.4, RDW Std Deviation 49.4 H, RDW Coeff of Cristohper 14.3, Plt Count 254, MPV 10.3, Immature Gran % (Auto) 0.400, Neut % (Auto) 68.4, Lymph % (Auto) 19.5, [place] % (Auto) 9.3, Eos % (Auto) 2.0, Baso % (Auto) 0.4, Absolute Neuts (auto) 5.0, Absolute Lymphs (auto) 1.44, Nucleated RBC % 0, Sodium 133 L, Potassium 5.6 H, Chloride 99, Carbon Dioxide 31.0, Anion Gap 3 L, BUN 20 H, Creatinine 0.80, Estim Creat Clear Calc 39.72, Est GFR (MDRD) Af Amer 118, Est GFR (MDRD) Non-Af 97, BUN/Creatinine Ratio 25.1 H, Glucose 104, Calcium 9.1 Physical Exam Const oriented x3 Resp normal respiratory effort Resp Narrative: left CT in place -20 no leak (changed to waterseal this AM) Assessment & Plan Assessment/Plan (1) Pneumothorax, post biopsy, left: (2) Lung mass: PLAN: Plan Change to waterseal, check CXR in AM if ok will remove CT and recheck cxr. Patient is agreeable plan has no further question this time. Teri Montoya M.D. Pager: [phone] [facility] [address] [place] [address], Outpatient [place], [address] [place] [id number] Office: [phone] Charges/Coding Visit Charges Inpatient E&M: 83013 Subs Hosp L2
[2024-04-10] MEDS: Sodium Polystyrene Sulfonate 15 GM/60 ML UDC 30 GM PO (10:24)
--- NOTE | 2024-04-10 11:08 | PN_ITS ---
Subjective Subjective Patient seen and examined. He was complaining of a cough which was productive of blood-tinged sputum. This is chronic and has been going on for close to a year. He is on room air. Review of systems is otherwise negative. Objective Data Objective Data Vital Signs: Vital Signs Temp Pulse Resp BP Pulse Ox O2 Del Method O2 Flow Rate 98.0 F 91 18 112/53 L 100 Room Air 2 04/10/24 08:56 04/10/24 10:23 04/10/24 08:56 04/10/24 10:23 04/10/24 08:56 04/10/24 08:56 04/09/24 08:12 Oxygen Flow Rate (L/min) 2 Oxygen Delivery Method Room Air Weight: 97 lb 0.054 oz Body Mass Index (BMI) 16.5 Intake & Output: Intake and Output for Last 24 Hours 04/08/24 04/09/24 04/10/24 23:59 23:59 23:59 Intake Total 1700 / 1700 Output Total 200 / 400 1065 / 1065 830 / 830 Balance -200 / -400 635 / 635 -830 / -830 Lab / Micro Data 04/10/24 08:04 04/10/24 08:04 Labs: Laboratory Results - last 24 hr 04/10/24 08:04: WBC 7.4, RBC 4.03 L, Hgb 12.3 L, Hct 38.0 L, MCV 94.3 H, MCH 30.5, MCHC 32.4, RDW Std Deviation 49.4 H, RDW Coeff of Cristopher 14.3, Plt Count 254, MPV 10.3, Immature Gran % (Auto) 0.400, Neut % (Auto) 68.4, Lymph % (Auto) 19.5, [place] % (Auto) 9.3, Eos % (Auto) 2.0, Baso % (Auto) 0.4, Absolute Neuts (auto) 5.0, Absolute Lymphs (auto) 1.44, Nucleated RBC % 0, Sodium 133 L, Potassium 5.6 H, Chloride 99, Carbon Dioxide 31.0, Anion Gap 3 L, BUN 20 H, Creatinine 0.80, Estim Creat Clear Calc 39.72, Est GFR (MDRD) Af Amer 118, Est GFR (MDRD) Non-Af 97, BUN/Creatinine Ratio 25.1 H, Glucose 104, Calcium 9.1 Physical Exam Const alert, oriented x3 and no apparent distress Constitutional Narrative: Thin appearing General Appearance: cooperative and well developed HEENT normocephalic, head/scalp atraumatic, moist oral mucous membranes and oropharynx normal Eyes PERRL and EOMs intact bilaterally Neck no lymphadenopathy and supple Lymph Lymphatic: no lymphadenopathy noted and no lymphedema noted Resp Resp Narrative: Mildly diminished breath sounds bibasilarly. No wheezes or crackles. On room air. Left-sided chest tube in situ Cardio regular rate, regular rhythm, S1 normal heart sound, S2 normal heart sound and no murmurs GI normal to inspection, nondistended, normoactive bowel sounds, soft to palpation, non-tender and non-distended Extremity normal to inspection, normal capillary refill, no clubbing, cyanosis or edema and no calf tenderness General Extremity: no tenderness to palpation of joints or extremities Skin General Skin Exam: no breakdown Neuro CN's II-XII intact bilaterally, no focal motor deficits and no sensory deficits noted Sensorium / Orientation: awake and alert Motor Exam: strength 5/5 throughout and general weakness Psych thought process normal, cooperative and affect normal Appearance: appropriate Assessment & Plan Assessment/Plan (1) Pneumothorax, post biopsy, left: PLAN: Plan #Iatrogenic left-sided pneumothorax * Patient admitted after he had a left sided lung biopsy with resultant pneumothorax. He had a chest tube inserted. * He is on room air. Chest x-ray yesterday morning showed resolved pneumothorax. * chest tube placed under water seal per general surgery. * Breathing treatments with bronchodilators. Give oxygen as needed to maintain saturation above 90%. * #Left lung lower lobe mass * Had biopsy on 04/08/2024 * Follow-up with oncology on outpatient basis. * is having a chronic cough productive of scant blood tinged sputum. This is likely due to the lung mass. * will send for sputum culture to treat any superimposed pneumonia. He is currently on room air and not short of breath. * #Hyperkalemia: K is 5.6. WIll give kayexalate and monitor. #Hypothyroidism: On Synthroid #Hypertension: On metoprolol. IV hydralazine prn * DVT prophylaxis: Lovenox Charges/Coding Visit Charges Inpatient E&M: 95268 Subs Hosp L2
[2024-04-11 06:00] VITALS: BP 149/75; PULSE 66; RESP 16; TEMP 36.1; O2SAT 99
[2024-04-11] MEDS: Levothyroxine 25 MCG TABLET PO (06:03)
[2024-04-11] MEDS: Acetaminophen 500 MG Tablet 1000 MG PO (06:03)
--- NOTE | 2024-04-11 07:12 | RAD_ITS ---
STUDY: X-RAY CHEST REASON FOR EXAM: Male, 88 years old patient with left-sided pneumothorax. Chest tube placed on water seal. TECHNIQUE: Single AP portable view of the chest. COMPARISON: April 10, 2024. FINDINGS: Patient has a left-sided thoracostomy tube with the tip of the left lung apex. The lungs are hyperexpanded. There is left lower lobe airspace consolidation. There is pleural fibrotic thickening of the pulmonary lung apices. Normal size heart. Normal mediastinum and jens. Normal visualized pulmonary arteries. There is atherosclerotic calcification of the aortic arch with tortuosity. Normal visualized thoracic spine. Normal visualized ribs, clavicles, and shoulders. There is no demonstrated abnormality of the visualized soft tissue structures of the upper abdomen. There is soft tissue emphysema within the left lateral chest wall and left shoulder. RAD/Chest 1 View (Portable) IMPRESSION: 1. No definite evidence for persistent pneumothorax. 2. Left basilar airspace disease is consistent with pneumonia. 3. Persistent left-sided soft tissue emphysema. Electronically Signed: Suly Blanchard MD at 8:01 EST ,
[2024-04-11 07:26] VITALS: O2SAT 97
--- NOTE | 2024-04-11 07:28 | PN.SURG_ITS ---
Subjective Subjective Patient evaluated resting comfortably in bed. He denies any shortness of breath. He notes feeling back to baseline. Objective Data Objective Data Vital Signs: Vital Signs Temp Pulse Resp BP Pulse Ox O2 Del Method O2 Flow Rate 97.0 F L 66 16 149/75 H 97 Room Air 2 04/11/24 06:00 04/11/24 06:00 04/11/24 06:00 04/11/24 06:00 04/11/24 07:26 04/11/24 07:26 04/09/24 08:12 Oxygen Flow Rate (L/min) 2 Oxygen Delivery Method Room Air Weight: 97 lb 0.054 oz Body Mass Index (BMI) 16.5 Intake & Output: Intake and Output for Last 24 Hours 04/09/24 04/10/24 04/11/24 23:59 23:59 23:59 Intake Total 1700 / 1700 600 / 1100 1000 / 1000 Output Total 1065 / 1065 1033 / 1383 750 / 750 Balance 635 / 635 -433 / -283 250 / 250 Lab / Micro Data 04/10/24 08:04 04/10/24 08:04 Labs: Laboratory Results - last 24 hr 04/10/24 08:04: WBC 7.4, RBC 4.03 L, Hgb 12.3 L, Hct 38.0 L, MCV 94.3 H, MCH 30.5, MCHC 32.4, RDW Std Deviation 49.4 H, RDW Coeff of Cristopher 14.3, Plt Count 254, MPV 10.3, Immature Gran % (Auto) 0.400, Neut % (Auto) 68.4, Lymph % (Auto) 19.5, [place] % (Auto) 9.3, Eos % (Auto) 2.0, Baso % (Auto) 0.4, Absolute Neuts (auto) 5.0, Absolute Lymphs (auto) 1.44, Nucleated RBC % 0, Sodium 133 L, Potassium 5.6 H, Chloride 99, Carbon Dioxide 31.0, Anion Gap 3 L, BUN 20 H, Creatinine 0.80, Estim Creat Clear Calc 39.72, Est GFR (MDRD) Af Amer 118, Est GFR (MDRD) Non-Af 97, BUN/Creatinine Ratio 25.1 H, Glucose 104, Calcium 9.1 Radiography Diagnostic Testing: Radiology Impression Chest X-Ray 04/10/24 05:40 IMPRESSION: Stable chest. Electronically Signed: Yuan Mooney MD at 22:43 EST , Physical Exam Chest Chest Narrative: Left chest tube intact. Resp normal respiratory effort and clear to auscultation bilaterally Assessment & Plan Assessment/Plan (1) Pneumothorax, post biopsy, left: PLAN: I am following this patient in conjunction with Dr. Montoya. She is will independently evaluate this patient. Obtain CXR today. Patient has been on waterseal If the CXR demonstrates no pneumothorax, will plan to remove chest tube today and obtain a repeat CXR 4-6 hours after removal We will continue to monitor this patient Charges/Coding Visit Charges Inpatient E&M: 72349 Subs Hosp L1
[2024-04-11 08:00] VITALS: PULSE 64; RESP 18; O2SAT 100
[2024-04-11 09:20] LABS: Anion Gap 6 (5-15); BUN 19 mg/dL (7-18); BUN/Creat Ratio 25.9 RATIO (10-20); Calcium,Total 9.1 mg/dL (8.5-10.1); Chloride 95 mmol/L (98-107); Creatinine, Serum 0.73 mg/dL (0.70-1.30); EST Glomerular Filtration Rate 107 mL/min (>60); Est Glom Filt Rate - Afr Amer 129 mL/min (>60); Estimated Creatinine Clearance 39.72 ml/min; Glucose 107 mg/dL (74-106); Potassium 3.8 mmol/L (3.5-5.1); Sodium Level 131 mmol/L (136-145)
[2024-04-11] MEDS: Aspirin E.C. 81 MG Tablet PO (10:41)
[2024-04-11] MEDS: Enoxaparin 40 MG/0.4 ML Syringe SC (10:41)
[2024-04-11] MEDS: Docusate Sodium 100 MG Capsule PO (10:41)
--- NOTE | 2024-04-11 12:05 | PN_ITS ---
Subjective Subjective Patient seen and examined. He had no active complaints. Review of systems is otherwise negative. Chest tube is to be removed today. Objective Data Objective Data Vital Signs: Vital Signs Temp Pulse Resp BP Pulse Ox O2 Del Method O2 Flow Rate 97.0 F L 64 18 149/75 H 100 Room Air 2 04/11/24 06:00 04/11/24 08:00 04/11/24 08:00 04/11/24 06:00 04/11/24 08:00 04/11/24 08:00 04/09/24 08:12 Oxygen Flow Rate (L/min) 2 Oxygen Delivery Method Room Air Weight: 97 lb 0.054 oz Body Mass Index (BMI) 16.5 Intake & Output: Intake and Output for Last 24 Hours 04/09/24 04/10/24 04/11/24 23:59 23:59 23:59 Intake Total 1700 / 1700 600 / 1100 1000 / 1000 Output Total 1065 / 1065 1033 / 1383 750 / 750 Balance 635 / 635 -433 / -283 250 / 250 Lab / Micro Data 04/10/24 08:04 04/11/24 08:53 Labs: Laboratory Results - last 24 hr 04/11/24 08:53: Sodium 131 L, Potassium 3.8, Chloride 95 L, Carbon Dioxide 31.0, Anion Gap 6, BUN 19 H, Creatinine 0.73, Estim Creat Clear Calc 39.72, Est GFR (MDRD) Af Amer 129, Est GFR (MDRD) Non-Af 107, BUN/Creatinine Ratio 25.9 H, G lucose 107 H, Calcium 9.1 Micro: Microbiology 04/10/24 10:00 Sputum, Expectorated/Coughed Respiratory Culture - Preliminary Appears to be normal respiratory amber. Further studies to follow. Radiography Diagnostic Testing: Radiology Impression Chest X-Ray 04/10/24 05:40 IMPRESSION: Stable chest. Electronically Signed: Yuan Mooney MD at 22:43 EST , Chest X-Ray 04/11/24 07:12 IMPRESSION: 1. No definite evidence for persistent pneumothorax. 2. Left basilar airspace disease is consistent with pneumonia. 3. Persistent left-sided soft tissue emphysema. Electronically Signed: Suly Blanchard MD at 8:01 EST Reading Location ID and State: [facility] / [place] , Service support , Physical Exam Const alert, oriented x3, no apparent distress and well nourished Constitutional Narrative: Thin General Appearance: cooperative HEENT normocephalic, head/scalp atraumatic, moist oral mucous membranes and oropharynx normal Eyes PERRL and EOMs intact bilaterally Neck no lymphadenopathy and supple Lymph Lymphatic: no lymphadenopathy noted and no lymphedema noted Resp normal respiratory effort, no retractions, no use of accessory muscles and clear to auscultation bilaterally Resp Narrative: Mildly diminished breath sounds bibasilarly. No wheezes or crackles. On room air. Left-sided chest tube in situ Cardio regular rate, regular rhythm, S1 normal heart sound, S2 normal heart sound and no murmurs GI normal to inspection, nondistended, normoactive bowel sounds, soft to palpation, non-tender and non-distended Extremity normal to inspection, normal capillary refill, no clubbing, cyanosis or edema and no calf tenderness General Extremity: no tenderness to palpation of joints or extremities Skin General Skin Exam: no breakdown Neuro CN's II-XII intact bilaterally, no focal motor deficits and no sensory deficits noted Sensorium / Orientation: awake and alert Motor Exam: strength 5/5 throughout and general weakness Psych thought process normal, cooperative and affect normal Appearance: appropriate Assessment & Plan Assessment/Plan (1) Pneumothorax, post biopsy, left: PLAN: Plan #Iatrogenic left-sided pneumothorax * Patient admitted after he had a left sided lung biopsy with resultant pneumothorax. He had a chest tube inserted. * He is on room air. Chest x-ray yesterday morning showed resolved pneumothorax. * chest tube to be removed today. Management as per general surgery. * Breathing treatments with bronchodilators. Give oxygen as needed to maintain saturation above 90%. * #Left lung lower lobe mass * Had biopsy on 04/08/2024 * Follow-up with oncology on outpatient basis. * is having a chronic cough productive of scant blood tinged sputum. This is likely due to the lung mass. * Respiratory culture appears to be normal respiratory amber in the preliminary read. * He remains on room air. * #Hyperkalemia: K is 5.6. Resolved. Received Kayexalate yesterday. Potassium is 3.8 today. #Hypothyroidism: On Synthroid #Hypertension: On metoprolol. IV hydralazine prn * DVT prophylaxis: Lovenox Charges/Coding Visit Charges Inpatient E&M: 81877 Subs Hosp L2
[2024-04-11 12:15] VITALS: BP 144/81; PULSE 69; RESP 18; TEMP 36.2; O2SAT 95
[2024-04-11 14:25] VITALS: PULSE 80; RESP 18; O2SAT 97
--- NOTE | 2024-04-11 15:00 | RAD_ITS ---
STUDY: X-RAY CHEST REASON FOR EXAM: Male, 88 years old. The pneumothorax -- PORTABLE; s/p chest tube removal TECHNIQUE: Single AP portable view of the chest. COMPARISON: Same day, 7:20 AM. FINDINGS: Status post removal of left chest tube. No pneumothorax or other change since earlier today. Electronically Signed: Ramiro Juares MD at 15:30 EST , RAD/Chest 1 View IMPRESSION: undefined
--- NOTE | 2024-04-11 15:56 | DCINST_ITS ---
Discharge Instructions Diet Discharge Diet: Low fat / Low cholesterol DC O2, CPAP, BIPAP needs Home O2 Discharge instructions: No Dressing / Incision Discharge Activity: Return to Normal Activity Weight Bearing Status: Weight bearing as tolerated Dressing / Incision Call your doctor if you observe: Fever of 101 or Higher, Shortness of breath, Dizziness, Swelling in the ankles and Chest pain Follow Up Care Test Results: Test results from this visit will be discussed in further detail at your follow- up appointment, if applicable. Discharge Plan Admission Admit Date/Time: 04/08/24 18:39 Primary Reason for Your Visit: iatrogenic pneumothorax Attending Provider: Gracia Ohara Primary Care Provider: Santino Morillo Consulting Providers: Teri Montoya; Ismael Prado Instructions Patient Instructions: Pneumothorax (Collapsed Lung) Discharge Orders/Prescriptions Prescriptions: Continued aspirin [Adult Aspirin Regimen] 81 mg tablet,delayed release (DR/EC) 81 mg PO QDAY Qty: 90 3RF levothyroxine 25 mcg capsule 25 mcg PO DAILY Qty: 90 1RF Rx Instructions: TAKE FIRST THING AM WITH ONLY WATER - NO OTHER INTAKE FOR 45 MINUTEs metoprolol succinate 25 mg tablet extended release 24 hr 25 mg PO BID Qty: 180 3RF Referrals / Follow Up: Santino Morillo MD [Primary Care Provider] - Within 1 Week Roman Sanchez MD [Med Staff - Active Staff] - Within 1 Week Disposition Disposition (needs filled in before D/C Order can be placed): Home, Self Care
--- NOTE | 2024-04-11 15:57 | DS.PCM_ITS ---
Providers Date of Admission: 04/08/24 Date of Discharge: 04/11/24 Primary Care Physician: Dr. Santino Morillo MD Consultations 04/08/24 19:46 Consult: General Surgery Routine Consulting Provider: Teri Montoya Reason for Consult: chest tube mgmt EMERGENT Consult: No MD Notified: Yes Date Notified: 04/08/24 Time Notified: 18:42 Method of Notification: ED Physician Initiated Reason For Visit: PTX Diagnosis Discharge Diagnosis (1) Pneumothorax, post biopsy, left: Status: Acute Code(s): J95.811 - Postprocedural pneumothorax Plan #Iatrogenic left-sided pneumothorax * Patient admitted after he had a left sided lung biopsy with resultant pneumothorax. He had a chest tube inserted. * He is on room air. Chest x-ray yesterday morning showed resolved pneumothorax. * chest tube to be removed today. Management as per general surgery. * Breathing treatments with bronchodilators. Give oxygen as needed to maintain saturation above 90%. * #Left lung lower lobe mass * Had biopsy on 04/08/2024 * Follow-up with oncology on outpatient basis. * is having a chronic cough productive of scant blood tinged sputum. This is likely due to the lung mass. * Respiratory culture appears to be normal respiratory amber in the preliminary read. * He remains on room air. * #Hyperkalemia: K is 5.6. Resolved. Received Kayexalate yesterday. Potassium is 3.8 today. #Hypothyroidism: On Synthroid #Hypertension: On metoprolol. IV hydralazine prn * DVT prophylaxis: Lovenox Medications at Discharge Home Medications aspirin 81 mg tablet,delayed release (Ad[facility] Aspirin Regimen) [facility]24 levothyroxine 25 mcg capsule 25 mcg PO DAILY thyroid #90 caps 01/06/24 metoprolol succinate 25 mg tablet,extended release 24 hr 25 mg PO BID blood pressure #180 tabs 02/09/24 Hospital Course Operations None Procedures - (chest tube insertion) Summary of Care Provided Minutes Spent on Discharge: 47 Hospital Course: Patient is an 88-year-old male with a past medical history as outlined was admitted through the ED on 04/08/2024 with complaint of shortness of breath. He was having CT-guided biopsy for left lung mass when he sustained an iatrogenic pneumothorax. CT of the chest after the procedure confirmed the left-sided pneumothorax so he was sent to the ED. He had a chest tube inserted. General surgery was consulted. Serial chest imaging showed resolution of the pneumothorax. The chest tube was removed on 04/11/2024. General surgery. He remained stable and was discharged home on the afternoon of 04/11/2024 after repeat chest x-ray showed no recurrence of the pneumothorax. He is to follow-up with his primary care doctor and follow-up with oncology within 1 week. Patient seen and examined prior to discharge. He had no active complaints. He had complained of some sputum production with a cough but sputum cultures were negative. Review of systems otherwise negative. Labs and vitals reviewed. Home medication reviewed and reconciled. He was having some bigeminy also and his potassium was supplemented. Magnesium was within normal limits. Physical Exam Const alert, oriented x3, no apparent distress and well nourished Constitutional Narrative: Thin General Appearance: cooperative, comfortable and well kempt Exam Limitations: no limitations HEENT normocephalic, head/scalp atraumatic, hearing grossly normal bilaterally, moist oral mucous membranes and oropharynx normal Mouth: oral and palatal mucosa normal Eyes PERRL and EOMs intact bilaterally Neck no lymphadenopathy and supple Lymph Lymphatic: no lymphadenopathy noted and no lymphedema noted Resp normal respiratory effort, no retractions, no use of accessory muscles and clear to auscultation bilaterally Resp Narrative: left sided chest tube removed Cardio regular rate, regular rhythm, S1 normal heart sound, S2 normal heart sound and no murmurs GI normal to inspection, nondistended, normoactive bowel sounds, soft to palpation, non-tender and non-distended Extremity normal to inspection, full ROM, normal capillary refill, no clubbing, cyanosis or edema and no calf tenderness General Extremity: no tenderness to palpation of joints or extremities Skin no rashes or lesions noted General Skin Exam: no breakdown Neuro oriented x3, CN's II-XII intact bilaterally, moves all extremities, no focal motor deficits and no sensory deficits noted Sensorium / Orientation: awake and alert Motor Exam: strength 5/5 throughout and general weakness Psych thought process normal, cooperative and affect normal Appearance: appropriate Medical Records Data Medical Nutrition Assessment Dietitian: Malnutrition Criteria Met Start: 04/11/24 14:06 Freq: Status: Active Protocol: Document 04/11/24 15:40 SB (Rec: 04/11/24 15:40 SB [id number]) Nutrition Malnutrition Evidence of Malnutrition Exists Yes Malnutrition (severe): Acute Illness/Injury Evidenced By Weight Loss (Moderate), Physical Changes (Severe) Clinical Problem Acute Disease or Injury Related Malnutrition Etiology severe related to inadequate energy intake Signs/Symptoms as evidenced by 5% unintentional weight loss x 1 month and severe wasting in clavicle and mormon areas. Status Active Problem Recommendation Dietitian Recommendations/Changes Adjust to liberal regular diet d/t signs and symptoms of malnutrition. Will order 240ml strawberry ensure plus high protein TID with meals. Will monitor weight, as available. Reviewed and approved by Marlene Romero, RD, LD. Weight / BMI Weight Weight: 97 lb 0.054 oz Body Mass Index (BMI) 16.5 ABG / Lab / Microbiology Data 04/10/24 08:04 04/11/24 08:53 Laboratory: Laboratory Results - last 24 hr 04/11/24 08:53: Sodium 131 L, Potassium 3.8, Chloride 95 L, Carbon Dioxide 31.0, Anion Gap 6, BUN 19 H, Creatinine 0.73, Estim Creat Clear Calc 39.72, Est GFR (MDRD) Af Amer 129, Est GFR (MDRD) Non-Af 107, BUN/Creatinine Ratio 25.9 H, G lucose 107 H, Calcium 9.1 Microbiology: Microbiology 04/10/24 10:00 Sputum, Expectorated/Coughed Gram Stain - Final 04/10/24 10:00 Sputum, Expectorated/Coughed Respiratory Culture - Preliminary Appears to be normal respiratory amber. Further studies to follow. Radiography Diagnostic Testing: Radiology Impression Chest X-Ray 04/10/24 05:40 IMPRESSION: Stable chest. Electronically Signed: Yuan Mooney MD at 22:43 EST , Chest X-Ray 04/11/24 07:12 IMPRESSION: 1. No definite evidence for persistent pneumothorax. 2. Left basilar airspace disease is consistent with pneumonia. 3. Persistent left-sided soft tissue emphysema. Electronically Signed: Suly Blanchard MD at 8:01 EST , Chest X-Ray 04/11/24 15:00 IMPRESSION: undefined D/C Instructions Discharge Diet: Low fat / Low cholesterol Discharge Activity: Return to Normal Activity Weight Bearing Status: Weight bearing as tolerated Call your doctor if you observe: Fever of 101 or Higher, Shortness of breath, Dizziness, Swelling in the ankles and Chest pain DC O2, CPAP, BIPAP Needs Home O2 Discharge instructions: No DC home with Oxygen: No Meaningful Use Info Meaningful Use Meaningful Use Diagnoses (Choose all that apply): None applicable Ischemic Stroke Statin Dosing Therapy Reference: STATIN DOSE THERAPY REFERENCE: * Patients > 75 years receive moderate or high dose statin therapy. * Patients 75 years or YOUNGER should receive HIGH intensity statin dose unless contraindicated. You will be required to document reason for non-treatment if statin daily dose does not meet guidelines. HIGH DOSE STATIN THERAPY DAILY Atorvastatin > than or = to 40 mg Rosuvastatin > than or = to 20 mg Amlodipine + Atorvastatin > than or = to 2.5/40 mg Ezetimibe + Simvastatin 10/80 mg Simvastatin 80mg Discharge Plan Admission Admit Date/Time: 04/08/24 18:39 Primary Reason for Your Visit: iatrogenic pneumothorax Attending Provider: Gracia Ohara Primary Care Provider: Santino Morillo Consulting Providers: Teri Montoya; Ismael Prado Instructions Patient Instructions: Pneumothorax (Collapsed Lung) Discharge Orders/Prescriptions Prescriptions: Continued aspirin [Adult Aspirin Regimen] 81 mg tablet,delayed release (DR/EC) 81 mg PO QDAY Qty: 90 3RF levothyroxine 25 mcg capsule 25 mcg PO DAILY Qty: 90 1RF Rx Instructions: TAKE FIRST THING AM WITH ONLY WATER - NO OTHER INTAKE FOR 45 MINUTEs metoprolol succinate 25 mg tablet extended release 24 hr 25 mg PO BID Qty: 180 3RF Referrals / Follow Up: Santino Morillo MD [Primary Care Provider] - Within 1 Week Roman Sanchez MD [Med Staff - Active Staff] - Within 1 Week Disposition Disposition (needs filled in before D/C Order can be placed): Home, Self Care Charges/Coding Visit Charges Inpatient E&M: 41943 Disch Hosp >30min
--- NOTE | 2024-04-11 16:23 | CASEMGMT ---
Patient has order for discharge. RN CM in to discuss needs at discharge. Patient up independent in room. Patient denies needs or help at discharge. Patient had no further questions or concerns.
[2024-04-11] MEDS: Potassium Chloride Oral Tablet 20 MEQ 40 MEQ PO (16:33)
== END 2024-04-11 16:52 | disposition home or self-care (01) | DRG 199 ==
LOC: ED 17:59 → MS3 18:48 → PCU 04-09 01:30
PROVIDERS: Internal Medicine; Emergency Provider Emergency Medicine; PCP Internal Medicine; Visit Provider Student in an Organized Health Care Education/Training Program
DX: J95.811 Postprocedural pneumothorax (principal); E43 Unspecified severe protein-calorie malnutrition; C34.32 Malignant neoplasm of lower lobe, left bronchus or lung; Z68.1 Body mass index [BMI] 19.9 or less, adult; E03.9 Hypothyroidism, unspecified; I10 Essential (primary) hypertension; E78.00 Pure hypercholesterolemia, unspecified; E87.5 Hyperkalemia; R00.1 Bradycardia, unspecified; Z79.82 Long term (current) use of aspirin; Z79.890 Hormone replacement therapy; Z79.899 Other long term (current) drug therapy
CPT/HCPCS: 32551; 36415; 71045; 71046; 71250; 77012; 80048; 81001; 83735; 84443; 85025; 85027; 85610; 85730; 87070; 87205; 88172; 88305; 88313; 88341; 88342; 99156; 99285; A4216; C2613; J1610; J2405

== ENCOUNTER → 2024-04-08 | Outpatient (CLI) | payer MEDICARE, SELFPAY ==
[2024-04-08] VITALS (8 sets, daily range): BP systolic 142–172; BP diastolic 15–96; PULSE 51–65; RESP 17–19; TEMP 36.6; O2SAT 95–100; BMI 16.9
--- NOTE | 2024-04-08 | IMM_PTH ---
PATIENT: XAVI FINN LOC: CT U#:[id number] AGE/SX: 88/M ROOM: RE04/08/[address]: Dr. Roman Sanchez MD : 1935 BED: DIS: 04/08/2024 SPEC #: [id number] RECD: 04/11/24 11:32 STATUS: STEPHEN REQ #: [id number] YOUSUF: 04/08/24 00:[address]: Roman Sanchez DEPT: IMMUNOHISTOCHEMISTRY RECD BY: Joseph Cleaning ENTERED: 04/11/24 11:33 SP TYPE: IMMUNO OTHR DR: Dr. Santino Morillo MD Tissues: Lung, NOS Procedures: RCC (add) NAPSIN A (add) CK20 (add) CK5-6 (add) CK7 (add) CK8 (add) HEP PAR (add) KI-67 (add) P53 (add) TTF1 (add) Pankeratin (initial) P40 (add) PSAP (add) PHYSICIAN & INSTITUTION [address] [address] SPECIMEN INFORMATION: Tissue Source: Left lung mass Clinical Info: Left lower lobe mass Specimen Number: [id number] CPT code: [id number] METHODOLOGY: Deparaffinized sections of prefer/formalin-fixed tissue or PAP/DQ stained slides are incubated with monoclonal/polyclonal antibodies/oligonucleotide probes. Localization is made via biotin free immunoperoxidase method. Appropriate controls are performed and reacted as expected. Results on target cell population are indicated in the following table: RESULTS: ANTIBODY / CLONE RESULT AE1-3 (AE1/AE3/PCK26) positive CK7 (OV-TL12/30) positive CK8 (59hkkvI03) positive CK20 (KS20.8) negative TTF-1 (8G7G3/1) positive, focal Napsin A (Rabbit Polyclonal) positive, focal HepPar (OCh1E5) negative RCC (PN-15) negative PSAP (PASE/4LJ) negative CK5-6 (D5 & 1684) negative P40 (BC28) negative P53 (DO-7) positive, missense mutation pattern Ki-67 (30-9) positive, moderate These tests were developed and their performance characteristics determined by [facility]. They may not have been cleared or approved by the U.S. Food and Drug Administration. The FDA has determined that such clearance or approval is not necessary. The above immunohistochemical/dualISH markers are ordered and reviewed by the Pathologist. INTERPRETATION: Left lower lobe lung mass, CT guided core biopsy: Non-small cell carcinoma, favor adenocarcinoma. See comment. COMMENT: IHC profile favors lung primary. [email or web address] 04/12/2024
[2024-04-08 09:36] LABS: Hematocrit 39.6 % (40-54); Hemoglobin 12.6 g/dL (13.0-16.5); Mean Corp Hgb Conc 31.8 g/dL (32-36); Mean Corpuscular Volume 94.3 fL (80-94); Mean Platelet Vol. 11.1 fl (6.2-12.0); Platelet Count 262 K/mm3 (150-450); RBC Distribution Width CV 14.5 % (11.6-14.6); RBC Distribution Width SD 49.5 fl (35.1-43.9); White Blood Count 6.6 K/mm3 (4.4-11.0)
[2024-04-08 09:41] LABS: Prothrombin Time (Protime)PT. 13.6 SECONDS (11.7-14.9)
[2024-04-08 09:42] LABS: Partial Thromboplast Time 35.7 Seconds (24.1-36.2)
[2024-04-08] MEDS: fentaNYL 100 MCG/2 ML Ampul IV (10:13)
[2024-04-08] MEDS: 0.9% Saline Lock 10 ML Syringe IV (10:13)
[2024-04-08] MEDS: Midazolam 2 MG/2 ML Syringe IV (10:13)
--- NOTE | 2024-04-08 10:15 | ASPIGT_PTH ---
PATIENT: XAVI FINN LOC: CT U#:[id number] AGE/SX: 88/M ROOM: RE04/08/[address]: Dr. Roman Sanchez MD : 1935 BED: DIS: 04/08/2024 SPEC #: [id number] RECD: 04/08/24 10:35 STATUS: STEPHEN RERegina #: [id number] YOUSUF: 04/08/24 10:[address]: Roman Sanchez DEPT: SURGICAL PATHOLOGY RECD BY: Alisha Champagne ENTERED: 04/08/24 11:09 SP TYPE: ASP RAD OTHR DR: Dr. Santino Morillo MD Tissues: Lung, NOS Procedures: FNA Specimen Adequacy Special Stain Group II Surgery Specimen Level IV Imprint (control) HEADER OPERATION: CT guided lung biopsy PRE-OP DIAGNOSIS: Left lower lobe mass TISSUE SUBMITTED: 20 gauge x 5 cores MICROSCOPIC DIAGNOSIS Left lower lobe lung mass, CT guided core biopsy: Non-small cell carcinoma, favor moderately differentiated adenocarcinoma. See comment. mr 04/11/2024 COMMENT The specimen is evaluated at the time of biopsy by Dr. Harvey. Immediate Evaluation = Atypical cells noted suspicious for malignancy. Reported to CT personnel at 10:40am on 04/08/2024. Immunohistochemistry ([id number]) supports the above diagnosis and favors lung primary. Molecular studies on the tumor can be performed if clinically indicated. Please notify the laboratory if it is needed. MICROSCOPIC DESCRIPTION Slides are reviewed. GROSS DESCRIPTION Received is one container labeled with the patient's name and not further designated. The specimen consists of a few minute fragments of grady soft tissue measuring in aggregate 0.2 x 0.1 x <0.1cm. The entire specimen is submitted in one cassette. Two touch imprints are prepared at the time of core biopsy. [email or web address] 04/08/2024 TC:0 [facility]:[id number] ADDENDUM ADDENDUM ADDENDUM ADDENDUM ADDENDUM ADDENDUM 04/26/2024 09:15 ADDENDUM 04/26/2024 09:15 ADDENDUM 04/26/2024 09:15 ADDENDUM 04/26/2024 09:15 ADDENDUM 04/26/2024 09:15 PD-L1 (KEYTRUDA) IMMUNOHISTOCHEMICAL ANALYSIS FROM [employer] RESULTS: Tumor proportion score: <1% / NEGATIVE Please see complete report in e-chart or EMR
[2024-04-08] MEDS: Lidocaine 2% (20 ml mdv) 20 ML Vial INFILT (10:16)
--- NOTE | 2024-04-08 10:30 | RAD_ITS ---
INDICATION: post lung biopsy -- Immediately post lung biopsy EXAMINATION/TECHNIQUE: X-RAY - XR Chest 2 Views COMPARISON: March 07, 2024 FINDINGS: LINES/DEVICES: None. LUNGS: There is a moderate-sized left pneumothorax. There is an ill-defined somewhat nodular opacity within the left lower lung. MEDIASTINUM AND CARDIOVASCULAR STRUCTURES: Cardiac silhouette not enlarged. Central airways and mediastinal contour are unremarkable. BONES AND SOFT TISSUES: Unremarkable. RAD/Chest Insp/Exp 2 View IMPRESSION: Left-sided pneumothorax. Rounded opacity within the left lower lung, may be secondary to a malignancy and/or consolidation. N.B. : The above Results were Read Back by Katie Arvizu MD to Cyndie Keith NP, and understanding confirmed on 04/08/2024 11:15:13 (ET). Electronically Signed: Katie Arvizu MD at 11:16 EST ,
--- NOTE | 2024-04-08 10:54 | PCM.OPRPT ---
Problems Associated Problem List Diagnoses (1) Lung mass: Procedures Radiology Radiology CT Procedures: [id number] Biopsy Lung Operative Report (Standard) Operative Information Date of Procedure: 04/08/24 Pre-Operative Diagnosis: Left lower lung mass Post-Operative Diagnosis: left lower lung mass Surgery/Procedure Performed: ct guided lung biopsy janitorial manager: No Type of Anesthesia: IV Sedation Procedure Start Time: 10:13 Procedure Stop Time: 10:28 Select all DRAINS/GRAFTS/IMPLANTS that apply: None Estimated Blood Loss: scant Specimen collected: Yes Description of specimen(s) removed: 2 cores Description of surgery: PROCEDURE: CT GUIDED CORE NEEDLE LUNG BIOPSY ORDERING PROVIDER: Dr. Sanchez INDICATION: Male, 88 years old. Left lower lobe lung mass. PROVIDER: GASTON Khoury CONSENT: Written informed consent was obtained having explained the risks, benefits and alternatives in detail with the patient who accepted the risks and agreed to proceed. Laboratory review and clinical assessment was performed. PRE-PROCEDURE SEDATION ASSESSMENT: Current history and physical dictated by referring physician and reviewed. No clinical changes since date of exam. Patient has a Mallampati Score of Class 2 and ASA Class of 3. PROCEDURAL SEDATION PROTOCOL: The Drugs used were: 1 mg Versed, IV, and 25 mcg Fentanyl, IV. The sedation time was: 15 minutes, starting at 1013 and terminated at 1028. The procedural sedation protocol was independently monitored by the department nurse. RADIATION DOSAGE (Supplied By Facility): CTDIvol = 12.96 mGy, DLP = 393.18 mGycm Individualized dose optimization techniques were used for this CT. TECHNIQUE: The patient was placed in a prone position. A noncontrast CT was performed to localize the lesion in the left lower lobe. The skin surface was prepped with chlorhexidine and draped in a sterile fashion. 2% lidocaine was used for local anesthesia. Using CT guidance, a 20-gauge coaxial biopsy device was advanced to the periphery of the lesion. A total of 2 core specimens were obtained. While trying to obtain additional specimens, it was noted that no further tissue was being obtained. This laura concern for pneumothorax. Specimens were microscopically reviewed by pathology in the CT suite and placed in formalin solution. Bio Sentry tract sealant system was deployed at the biopsy site and the biopsy needle was removed. A sterile occlusive dressing was applied to the biopsy site. A CT section was obtained, confirming pneumothorax. Despite this, the patient tolerated the procedure well. An immediate chest xray was ordered, per protocol. This also demonstrated pneumothorax. The patient was placed on 6 L oxygen via nasal cannula in an effort to hyper oxygenate, and transported to the emergency department with an oxygen saturation of 100%. A negative biopsy does not exclude malignancy. Further imaging or clinical followup based on patient condition and degree of clinical suspicion for malignancy. Suggest rebiopsy, if biopsy results do not match with clinical scenario. IMPRESSION: CT directed core needle biopsy of left nodule using CT image guidance with image documentation as described. Pathology results are pending. Procedural Sedation protocol utilized with independent monitoring by the department nurse. Surgical Findings: 2 cores Complications Complications: Yes Complication Details: Left-sided pneumothorax
== END | disposition home or self-care (01) ==
LOC: CT 08:30
PROVIDERS: Nurse Practitioner Acute Care; PCP Internal Medicine; Referring Provider Internal Medicine Medical Oncology; Visit Provider Internal Medicine Medical Oncology
DX: R91.8 Other nonspecific abnormal finding of lung field (principal); I34.0 Nonrheumatic mitral (valve) insufficiency
CPT/HCPCS: 32408; 71046; 77012; 85027; 85610; 85730; 88172; 88305; 88313; 88341; 88342; 99156; A4216; C2613

== ENCOUNTER → 2024-04-20 | Outpatient (CLI) | payer MEDICARE, SELFPAY ==
--- NOTE | 2024-04-20 11:16 | MRI_ITS ---
EXAM: MR HEAD WITHOUT AND WITH INTRAVENOUS CONTRAST CLINICAL INDICATION: STAGING -LUNG CA, HEADACHES, BILATERAL VISION CHANGES TECHNIQUE: Multiplanar and multisequence MR images of the brain were obtained without and with intravenous contrast. CONTRAST: IV 9ml Clariscan COMPARISON: PET/CT, 04/05/2024. MRI brain, 04/05/2018. FINDINGS: BRAIN AND EXTRA-AXIAL SPACES: Global parenchymal volume loss is not atypical for age. There is no restricted diffusion in the brain parenchyma to indicate recent infarct or other pathology. There is periventricular T2 and T2 FLAIR hyperintensity which is nonspecific although most commonly due to chronic microvascular ischemic changes in a patient of this age. There is no pathologic mineralization or acute intracranial hemorrhage and there is no pathologic extra-axial fluid. There is no hydrocephalus. The basal cisterns are patent. There is no pathologic meningeal enhancement or pathologic parenchymal enhancement. No intracranial mass or mass effect. Posterior fossa structures are unremarkable. SELLA: No significant abnormality. Normal sella turcica, pituitary gland, infundibular stalk, optic chiasm and hypothalamus. AUDITORY SYSTEM: No significant abnormality. The internal auditory canals are patent. BONES/JOINTS: No significant abnormality. No discrete lytic or blastic abnormalities. SINUSES: Normal as visualized. Clear. MASTOID AIR CELLS: Normal as visualized. Clear. ORBITS: Bilateral ocular lens extraction presumptively for the treatment of cataracts. Otherwise, no acute orbital pathology. VASCULATURE: Normal as visualized. Normal flow voids in the major intracranial circulation. MRI/Brain W/WO Contrast IMPRESSION: No evidence of intracranial metastasis or other acute intracranial pathology. Chronic microvascular ischemic changes and age appropriate global parenchymal volume loss. Electronically Signed: Johnny Charles DO at 21:44 EST ,
== END | disposition home or self-care (01) ==
LOC: MRI 10:44
PROVIDERS: PCP Internal Medicine; Referring Provider Internal Medicine Medical Oncology; Visit Provider Internal Medicine Medical Oncology
DX: C34.32 Malignant neoplasm of lower lobe, left bronchus or lung (principal)
CPT/HCPCS: 70553; A9575

== ENCOUNTER → 2024-07-19 | Outpatient (CLI) | payer MEDICARE, SELFPAY ==
--- NOTE | 2024-07-19 13:58 | ECHOL_ITS ---
Reason For Study Reason For Study: ASHD Procedure This was a limited 2D transthoracic echocardiogram. Myocardial strain analysis was performed in this exam to aid in the assessment of cardiac function. Exam performed in department. Left Ventricle Normal size and thickness. The LV systolic function is normal. EF is 65 %. Right Ventricle Normal right ventricle. Atria The left and right atria are normal. Mitral Valve Mildly thickened posterior mitral valve leaflet. Trivial mitral valve regurgitation. Tricuspid Valve Moderate (2+) tricuspid valve insufficiency. Normal pulmonary artery pressure. Aortic Valve Trisinus/trileaflet aortic valve. Mild (1+) aortic valve insufficiency. Pulmonic Valve The pulmonic valve is not well visualized. Great Vessels Normal sized aortic root. Pericardium/Pleural No pericardial effusion. MMode/2D Measurements & Calculations LVIDd: 3.7 cm IVSd: 0.95 cm Ao root diam: 3.4 cm LVIDs: 2.2 cm LVPWd: 0.92 cm FS: 39.9 % LAV(MOD-bp): 23.5 ml LVAd ap4: 22.8 cm2 LVAd ap2: 22.3 cm2 LAV(MOD-bp) Indexed: 16.2 ml/m2 LVLd ap4: 6.8 cm LVLd ap2: 6.6 cm LAV(MOD-sp2): 19.0 ml EDV(MOD-sp4): 61.9 ml EDV(MOD-sp2): 62.1 ml LAV(MOD-sp4): 24.7 ml EDV(sp4-el): 65.0 ml EDV(sp2-el): 64.3 ml LVAs ap4: 11.5 cm2 LVAs ap2: 12.6 cm2 LVLs ap4: 5.5 cm LVLs ap2: 5.5 cm ESV(MOD-sp4): 20.1 ml ESV(MOD-sp2): 23.7 ml ESV(sp4-el): 20.2 ml ESV(sp2-el): 24.3 ml EF(MOD-sp4): 67.6 % EF(MOD-sp2): 61.8 % EF(sp4-el): 68.9 % SV(MOD-sp4): 41.9 ml SV(MOD-sp2): 38.4 ml SV(sp4-el): 44.8 ml SI(MOD-sp4): 28.9 ml/m2 SI(MOD-sp2): 26.5 ml/m2 LA A4 area: 11.8 cm2 LA dimension(2D): 2.9 cm RA A4 area: 11.3 cm2 Doppler Measurements & Calculations TR max noemi: 264.0 cm/sec TR max P.9 mmHg ECHO/Echo, Limited Study Interpretation Summary The LV systolic function is normal. EF is 65 %. Moderate (2+) tricuspid valve insufficiency. Mild (1+) aortic valve insufficiency. Ordering Physician: Carolyn Taylor Referring Physician: EFEWONGBE OLEGHE Performed By: Meghan Balderrama RDCS
== END | disposition home or self-care (01) ==
LOC: CVS 13:56
PROVIDERS: PCP Internal Medicine; Referring Provider Internal Medicine Cardiovascular Disease; Visit Provider Internal Medicine Cardiovascular Disease
DX: I25.10 Atherosclerotic heart disease of native coronary artery without angina pectoris (principal); C77.1 Secondary and unspecified malignant neoplasm of intrathoracic lymph nodes; C34.90 Malignant neoplasm of unspecified part of unspecified bronchus or lung; I08.0 Rheumatic disorders of both mitral and aortic valves
CPT/HCPCS: 93308

== ENCOUNTER → 2024-07-29 | Outpatient (CLI) | payer MEDICARE, SELFPAY ==
--- NOTE | 2024-07-29 14:56 | CT_ITS ---
PROCEDURE: CT CHEST AND ABD W/ CONTRAST 07/29/2024 REASON FOR EXAM: LUNG CA-IV ONLY TECHNIQUE: Chest and abdomen CT with intravenous contrast. Coronal and Sagittal reconstruction series were provided. One or more dose reduction techniques were used (e.g., Automated exposure control, adjustment of the mA and/or kV according to patient size, use of iterative reconstruction technique. PATIENT PREPARATION: Per protocol ORAL CONTRAST TYPE: None. AMOUNT: mL COMPARISON: None. FINDINGS: CT CHEST: Hardware: None Lymph nodes: No mediastinal, hilar, or axillary lymphadenopathy. Heart and Vasculature: Normal heart size. No pericardial effusion. Thoracic aorta and pulmonary arteries are unremarkable. Lungs and Airways: Moderate bilateral apical scarring. 3 x 4 cm mass of the left lower lobe of the lungs consistent with known bronchogenic carcinoma. Pleura: Tiny left pleural effusion. CT ABDOMEN: Liver: Normal size. No mass. Gallbladder: Contracted Spleen: Normal size. Pancreas: Normal size without evidence of mass surrounding inflammation or ductal dilation. Adrenals: Unremarkable. Kidneys: Normal renal sizes. No hydronephrosis. Bowel: Unremarkable. Lymph nodes: Unremarkable. Vasculature: The abdominal aorta and IVC are normal. Peritoneum / Retroperitoneum: Unremarkable. Bones: Unremarkable. CT/CT Chest AND Abd W/ Contrast IMPRESSION: Coronary artery calcification (CAC) is was not evaluable 3 x 4 cm left lower lobe lung mass most worrisome for bronchogenic carcinoma. No CT evidence of metastatic lymphadenopathy or other metastasis. Reading Location: [id number]
== END | disposition home or self-care (01) ==
LOC: CT 14:53
PROVIDERS: PCP Internal Medicine; Referring Provider Internal Medicine Medical Oncology; Visit Provider Internal Medicine Medical Oncology
DX: C34.32 Malignant neoplasm of lower lobe, left bronchus or lung (principal); C77.1 Secondary and unspecified malignant neoplasm of intrathoracic lymph nodes
CPT/HCPCS: 71260; 74160; Q9967

== ENCOUNTER → 2024-09-20 | Outpatient (CLI) | payer MEDICARE, SELFPAY ==
[2024-09-20 14:28] LABS: AST(SGOT) 25 U/L (<=37); Alanine Aminotransfer ALT/SGPT 22 U/L (<=46); Albumin, Serum 3.9 g/dL (3.4-4.8); Alkaline Phosphatase 83 U/L (40-129); Bilirubin, Direct 0.27 mg/dL (0.00-0.30); Cholesterol 186 mg/dL (<=200); Globulin 3.2 g/dL (2.2-4.2); High Density Lipoprotein 64 mg/dL; Low Density Lipoprotein Calc. 97 mg/dL; Protein, Total 7.1 g/dL (5.9-8.4); Total Bilirubin 0.69 mg/dL (0.00-1.30); Triglycerides 123 mg/dL; Very Low Density Lipoprotein 25 mg/dL (5-40); cholesterol:hdl ratio screen 2.89
== END | disposition home or self-care (01) ==
LOC: LAB 10:21
PROVIDERS: PCP Internal Medicine; Referring Provider Internal Medicine Cardiovascular Disease; Visit Provider Internal Medicine Cardiovascular Disease
DX: I10 Essential (primary) hypertension (principal); E78.5 Hyperlipidemia, unspecified
CPT/HCPCS: 36415; 80061; 80076

== ENCOUNTER → 2024-12-14 | Outpatient (CLI) | payer MEDICARE, SELFPAY ==
--- NOTE | 2024-12-14 17:13 | CT_ITS ---
PROCEDURE: CT CHEST, ABD, PEL W/CONTRAST 12/14/2024 REASON FOR EXAM: NON SMALL CELL LUNG CANCER, STAGING. Status post radiation and chemotherapy. TECHNIQUE: Chest, abdomen and pelvis CT with intravenous contrast. Coronal and Sagittal reconstruction series were provided. One or more dose reduction techniques were used (e.g., Automated exposure control, adjustment of the mA and/or kV according to patient size, use of iterative reconstruction technique. PATIENT PREPARATION: Per protocol ORAL CONTRAST TYPE: None. CONTRAST: Isovue-300 VOLUME: 100mL RADIATION DOSE SUMMARY: CTDlvol: 30.52 mGy DLP: 492.72 mGycm COMPARISON: CT chest abdomen and pelvis with IV contrast, 07/29/2024 FINDINGS: CT CHEST: Lower neck:The thyroid gland is normal. There is no supraclavicular lymphadenopathy. Mediastinum:No abnormal masses or lymphadenopathy. There is generalized increased in density of the mediastinal fat. Heart and Vasculature:The heart is enlarged. There is no pericardial effusion. There is moderate calcific vascular disease of the coronary arteries. There is minimal calcific vascular disease of the thoracic aorta. Esophagus:Normal. Chest wall:There is minimal subcutaneous fat in the chest wall. There is no axillary lymphadenopathy. There are large Schmorl's nodes at multiple vertebral endplates of the lower cervical, the thoracic, in the upper lumbar spine. There is diffuse osteopenia of the visualized spine. Lungs, airways and pleura: There is diffuse tubular bronchiectasis. There is consolidation of a small central portion of the upper lobe of the left lung. There is consolidation of a large portion of the lower lobe of the left lung. The amount of consolidated lung has increased significantly since the prior exam. The upper lobe consolidation is predominantly peribronchial, while the lower lobe consolidation is predominantly due to bronchial obstruction, most likely by mucous plugs. There is a large partially loculated left pleural effusion, not present previously. CT ABDOMEN/PELVIS: Liver: Normal size. No mass. Gallbladder: Normal. There is mild intrahepatic biliary ductal dilatation. Spleen: There are multiple benign calcified splenic granulomas. Pancreas: Normal size without evidence of mass surrounding inflammation or ductal dilation. Adrenals: Normal. Kidneys: Normal renal sizes. No hydronephrosis. Bladder: Partially evacuated. Reproductive Organs: The prostate gland measures 5.0 cm in transverse dimension and contains coarse calcifications. There are bilateral seminal vesicle cysts. There is no free fluid in the pelvis. There is no inguinal lymphadenopathy. There is a large left hydrocele. Bowel: The cecum, ascending and transverse portions of the colon are distended without being abnormally dilated. The gastrointestinal tract is otherwise unremarkable. Appendix: Normal. Lymph nodes: There is no significant retroperitoneal, mesenteric or pelvic lymphadenopathy. Vasculature: There is calcific vascular disease of the abdominal aorta. The inferior vena cava and portal venous system are normal. Peritoneum / Retroperitoneum/abdominal wall: There is a paucity of, subcutaneous mesenteric and retroperitoneal fat. There are no abnormal intra or retroperitoneal masses or fluid collections. Bones: There are large Schmorl's nodes at multiple endplates of the lower thoracic in lumbar spine. There is degenerative disc disease L3-4. CT/CT Chest, Abd, Pel w/Contrast IMPRESSION: 1. There is interval increased consolidation in the left lung and development of a left pleural effusion, consistent with interval radiation therapy. 2. There is no evidence of metastatic disease. 3. There is a generalized paucity of fat consistent with cachexia. 4. The proximal 1/2 of the colon is distended without being abnormally dilated , of questionable clinical significance. 5. There is a large left hydrocele. 6. Other findings as noted. Reading Location: [place] [id number]
== END | disposition home or self-care (01) ==
LOC: CT 17:11
PROVIDERS: PCP Internal Medicine; Referring Provider Specialist; Visit Provider Specialist
DX: C34.02 Malignant neoplasm of left main bronchus (principal)
CPT/HCPCS: 71260; 74177; Q9967

== ENCOUNTER → 2025-02-10 | Outpatient (CLI) | payer MEDICARE, SELFPAY ==
--- NOTE | 2025-02-10 14:58 | CT_ITS ---
PROCEDURE: CT/Chest WITH Contrast
== END | disposition home or self-care (01) ==
LOC: CT 14:51
PROVIDERS: PCP Pediatrics; Referring Provider Specialist; Visit Provider Specialist
DX: C34.90 Malignant neoplasm of unspecified part of unspecified bronchus or lung (principal)
CPT/HCPCS: 71260; Q9967